=== PATIENT | male | born 1935 | race Caucasian/White ===

== ENCOUNTER → 2019-09-30 05:55 | Outpatient (CLI) | payer MEDICARE, SELFPAY ==
--- NOTE | 2019-09-30 12:25 | STRESSREP ---
Stress Test Report Pharmacologic myocardial perfusion stress test. 84-year-old man for preoperative evaluation. Stress protocol: Resting EKG demonstrates normal sinus rhythm with a rate of 81 bpm normal intervals are noted resting blood pressures 158/84 mmHg. 0.4 mg of regadenoson was infused per usual protocol followed by intravenous saline flush injection. Continuous EKG monitoring was performed. The maximum heart rate attained was 104 bpm which was 77% of maximum predicted heart rate the maximum workload was 1 metabolic equivalent. At rest there were no ST or T wave changes noted suggest abnormal flow reserve at peak infusion nonspecific ST-T wave changes were noted would not suggest abnormal flow reserve. Myocardial perfusion protocol. 11.0 mCi of technetium 99m sestamibi was injected at rest. 0.4 mg of regadenoson was infused per usual protocol peak infusion 33.0 mCi of technetium 99m sestamibi was injected stress images were obtained stress and rest images were reconstructed in comparing the short axis vertical and horizontal long axis. Gated images also obtained Perfusion SPECT analysis: Review of the stress images demonstrated normal uptake of tracer noted in all areas of myocardium the resting images similar demonstrate normal uptake of tracer noted in all areas of the myocardium. No reversibility is noted suggest ischemia no previous infarct is noted. Gated SPECT analysis: The gated ejection fraction is noted to be 56%. Conclusion: Normal pharmacologic myocardial perfusion stress test. Preserved ejection fraction.
== END ==
PROVIDERS: PCP Preventive Medicine Occupational Medicine; Referring Provider Preventive Medicine Occupational Medicine; Visit Provider Preventive Medicine Occupational Medicine
DX: Z01.818 Encounter for other preprocedural examination (principal); R07.89 Other chest pain
CPT/HCPCS: 78452; 93017; A9500; A4216; J2785

== ENCOUNTER 2019-10-10 16:15 | Inpatient (IN) | payer MEDICARE, SELFPAY ==
[2019-10-10 16:45] VITALS: BP 150/74; PULSE 88; RESP 16; TEMP 37.4; O2SAT 97; BMI 32.8
[2019-10-10] MEDS: Docusate Sodium 100 MG Capsule PO (17:52)
--- NOTE | 2019-10-10 18:23 | HP.PCM_ITS ---
Problem List (1) Debility Status: Acute (2) Lumbar spinal stenosis Status: Chronic (3) Weakness of both legs Status: Chronic (4) Fecal impaction of colon Status: Chronic (5) Hyperlipidemia Status: Chronic (6) Prostate cancer Status: Chronic (7) Osteoarthritis Status: Chronic (8) Hearing loss Status: Chronic (9) Hypertension Status: Chronic History of Present Illness Date of Admission: 10/10/19 Chief Complaint: Here for rehabilitation, strengthening, prior to discharge home with . The patient is a 84 year old Male with below past medical history with followin09/30/2019 Pharmacologic stress test normal. 10/05/2019 Dr. Jimenez performed hemilaminectomy L2, Laminectomy L3, Laminectomy L4-5, Fusion L3-5. Sequential compression devices for DVT prophylaxis. IV antibiotics while drains in place. Lumbar brace. 10/10/2019 Admit to TCU with debility, here for rehabilitation, strengthening, prior to discharge home with . Past Medical History Past Medical History (Chronic Problems): Chronic Problems Lumbar spinal stenosis (Chronic) Weakness of both legs (Chronic) Fecal impaction of colon (Chronic) Hyperlipidemia (Chronic) Prostate cancer (Chronic) Osteoarthritis (Chronic) Hearing loss (Chronic) Hypertension (Chronic) Home Medications: Ambulatory Orders Medication Instructions Recorded Docusate Sodium [Colace] 100 mg PO BID 10/10/19 Oxycodone HCl/Acetaminophen 1 tab PO Q6H PRN PRN 10/10/19 [Percocet 5/325] Tamsulosin HCl [Flomax] 0.4 mg PO DAILY 10/10/19 traMADol [Ultram (G)] 50 mg PO Q6H PRN PRN 10/10/19 Surgical History: herniorrhaphy, - - Brachytherapy, Bilateral carpal tunnel release, Left lower extremity coumpound fracture, right middle finger amputation, right ulnar nerve decompression. Psychiatric History: No pertinent psych hx Lives: Spouse/ Significant Other Smoking Status: Never smoker Tobacco Use: Non-smoker Alcohol: None Drugs: None - *Family History Paternal History Items: Hypertension Maternal History Items: Cancer - Leukemia. Review of Systems Constitutional: Denies: Chills, Fever, Weight Change HEENT: Denies: Head Aches, Sinus Congestion, Sinus Drainage Cardiovascular: Denies: Chest Pain, Palpitations Respiratory: Denies: Cough, Shortness of breath at rest, Sputum production Gastrointestinal: Denies: Abdominal Pain, Nausea, Vomiting Genitourinary: Denies: Dysuria Musculoskeletal: Denies: Joint Pain, Joint Tenderness Skin: Denies: Rash, Wounds Neurological: Denies: Numbness, Tingling, Focal weakness Psychiatric: Denies: Anxiety, Depression, Homicidal Ideations, Suicidal Ideations Hematologic/ Lymphatic: Denies: Easy Bruising, Easy Bleeding VTE Information - Inpt Only VTE Present on Admission: No VTE Mechan Device Prophylaxis: Knee High GOLDEN Hose VTE Pharm Prophylaxis ordered?: Yes Patient Problems: Active and Suspected Problems Debility (Acute) - Physical Exam Vitals/I&O's: Vital Signs Temp Pulse Resp BP Pulse Ox 99.3 F H 88 16 150/74 H 97 10/10/19 16:45 10/10/19 16:45 10/10/19 16:45 10/10/19 16:45 10/10/19 16:45 Oxygen Delivery Method Room Air Weight: 97.749 kg Body Mass Index (BMI) 32.8 General: Alert, Oriented x3, Cooperative HEENT: Atraumatic, PERRLA, EOMI, Normocephalic Neck: Supple, No JVD, Negative Carotid Bruits Lungs: Clear to auscultation, Normal air movement Cardiovascular: Regular rate, No murmurs Abdomen: Bowel Sounds Present, Soft, Non Tender Extremities: No edema, Capillary Refill Less than 3 Seconds Skin: No rashes, No breakdown Musculoskeletal: No Tenderness to Palpation of Joints or Extremities Neurological: Cranial nerves II-XII grossly intact Psych/Mental Status: Normal Affect, Appropriate Current Medications Acetaminophen (Tylenol) 1,000 mg PO Q6H PRN PRN PRN Reason: Pain 1-10 Bacitracin (Bacitracin Ointment) 1 applic TOPICAL BID [facility]; Protocol Docusate Sodium (Colace) 100 mg PO BID [facility] Last Admin: 10/10/19 17:52 Dose: 100 mg Documented by: Tamsulosin HCl (Flomax) 0.4 mg PO DAILY [facility] Tramadol HCl (Ultram) 50 mg PO Q6H PRN PRN PRN Reason: Pain 1-10 or Fever Tuberculin PPD (Tubersol, Aplisol, Ppd) 5 tu ID X1 ONE Stop: 10/11/19 10:01 Tuberculin PPD (Tubersol, Aplisol, Ppd) 5 tu ID X1 ONE Stop: 10/18/19 10:01 Assessment/Plan All Active Problems Debility (Acute) 84 year old male with below past medical history significant for lumbar spinal stenosis, underwent lumbar spine surgery 10/05/[address] Jimenez, admitted to TCU with debility, here for rehabilitation, strengthening, prior to discharge home with . * Debility - PT/OT. * Pain - Tylenol 1000MG Q6H PRN pain (1-3), Tramadol 50MG Q6H PRN pain (4-5), Oxycodone 2.5MG Q4H PRN pain (6-10). * Bowel - Miralax 17GM daily, Senna/colace 1 tablet BID, Dulcolax 10MG MN daily PRN, Magnesium Citrate 300ML PO x 1 bottle clean out. * Adult immunization - Administer Prevnar 13, Pneumovax 23, Fluzone as appropriate. * DVT prophylaxis - Lovenox 30MG SC daily. * Skin - Bacitracin ointment BID. * BPH - Tamsulosin 0.4MG daily. * Iron deficiency anemia - Ferrex 150MG daily. * Hypokalemia - KCL 40MEQ PO x 1 dose, then KCL 20MEQ daily, recheck BMP in 2 days.
[2019-10-10] MEDS: BACITRACIN 15 GM Tube 1 APPLIC TOPICAL (20:43)
[2019-10-11] MEDS: Acetaminophen 500 MG Tablet 1000 MG PO ×2 (00:59→10:49)
[2019-10-11 01:10] LABS: Probe Check PASS; Specimen Processing Control PASS
[2019-10-11 03:46] VITALS: BP 129/60; PULSE 83; RESP 16; TEMP 36.9; O2SAT 97
[2019-10-11 06:12] LABS: Absolute Lymphocyte Count 1.33 X10^3/uL (0.83-4.51); Absolute Neutrophil Count 6.8 X10^3/uL (2.0-7.7); Basophil# 0.05 X10^3/uL; Basophil% 0.5 % (0-1); Eosinophil# 0.11 X10^3/uL; Eosinophils% 1.2 % (0-5); Hematocrit 26.4 % (40-54); Hemoglobin 8.4 g/dL (13.0-16.5); Lymphocyte # 1.33 X10^3/ul (4.0); Lymphocyte % 14.5 % (19-41); Mean Corp Hgb Conc 31.8 g/dL (32-36); Mean Corpuscular Hgb 29.4 pg (27.0-32.0); Mean Corpuscular Volume 92.3 fL (80-94); Mean Platelet Vol. 9.3 fl (6.2-12.0); Monocyte# 0.85 X10^3/uL; Monocyte% 9.2 % (0-10); NRBC Flagged by Analyzer 0 % (0-5); Neutrophil # 6.82 X10^3/uL (2.7-7.7); Neutrophil % 74.2 % (47-70); Platelet Count 278 K/mm3 (150-450); RBC Distribution Width CV 12.7 % (11.6-14.6); RBC Distribution Width SD 42.4 fl (35.1-43.9); Red Blood Count 2.86 M/mm3 (4.6-6.2); White Blood Count 9.2 K/mm3 (4.4-11.0)
[2019-10-11] MEDS: Tamsulosin HCl 0.4 MG Capsule PO (06:21)
[2019-10-11 06:25] LABS: Anion Gap 7 (5-15); BUN 18 mg/dL (7-18); BUN/Creat Ratio 23.5 RATIO (10-20); Calcium,Total 8.2 mg/dL (8.5-10.1); Chloride 101 mmol/L (98-107); Creatinine, Serum 0.76 mg/dL (0.70-1.30); EST Glomerular Filtration Rate 103 mL/min (>60); Est Glom Filt Rate - Afr Amer 124 mL/min (>60); Estimated Creatinine Clearance 52.25 ml/min; Glucose 108 mg/dL (74-106); Potassium 3.2 mmol/L (3.5-5.1); Sodium Level 134 mmol/L (136-145)
[2019-10-11] MEDS: Senna/Docusate Sodium 1 Tablet PO ×2 (06:25→18:33)
[2019-10-11] MEDS: BACITRACIN 15 GM Tube 1 APPLIC TOPICAL ×2 (06:28→18:35)
[2019-10-11] MEDS: Magnesium Citrate 300 ML PO (09:22)
[2019-10-11] MEDS: Polyethylene Glycol 3350 17 GM PACKET PO (09:22)
[2019-10-11] MEDS: Tuberculin,Purif.prot.deriv. 50 TU/ML Vial 5 ML ID (10:50)
--- NOTE | 2019-10-11 11:19 | PHA.CONS_ITS ---
<Iesha Collins - Last Filed: 10/11/19 11:19> Progress Note - Pharmacy Subjective: TCU Admission Objective: Allergies No Known Allergies Allergy (Verified 10/10/19 18:29) Current Medications Generic Name Dose Route Start Last Admin Trade Name Freq PRN Reason Stop Dose Admin Acetaminophen 1,000 mg 10/11/19 08:04 10/11/19 10:49 Tylenol PO 1,000 mg Q6H PRN PRN Administration Pain Score 1-3/10 Bacitracin 1 applic 10/10/19 18:00 10/11/19 06:28 Bacitracin Ointment TOPICAL 1 applicatio BID [facility]ONOR Administration Protocol Bisacodyl 10 mg 10/10/19 18:34 Dulcolax RECTAL DAILY PRN Constipation Nutritional Formula (Lactose Free) 120 ml 10/11/19 06:00 10/11/19 06:22 Ensure Enlive PO 120 ml 4X/DAY LEONOR Administration Oxycodone HCl 2.5 mg 10/11/19 08:03 Oxyir PO Q4H PRN PRN Pain Score 6-10/10 Polyethylene Glycol 17 gm 10/11/19 06:00 10/11/19 09:22 Miralax PO 17 gm DAILY LEONOR Administration Polysaccharide Iron Complex 150 mg 10/12/19 08:00 Ferrex 150 PO DAILYCM [facility] Potassium Chloride 20 meq 10/12/19 08:00 K-Dur PO DAILYCM [facility] Senna/Docusate Sodium 1 tablet 10/11/19 06:00 10/11/19 06:25 Senokot-S, Mindy-Colace PO 1 tablet BID LEONOR Administration Tamsulosin HCl 0.4 mg 10/11/19 06:00 10/11/19 06:21 Flomax PO 0.4 mg DAILY [facility] Administration Tramadol HCl 50 mg 10/10/19 16:53 Ultram PO Q6H PRN PRN Pain Score 4-5/10 Tuberculin PPD 5 tu 10/18/19 10:00 Tubersol, Aplisol, Ppd ID 10/18/19 10:01 X1 ONE Problem List Debility (Acute) Lumbar spinal stenosis (Chronic) Weakness of both legs (Chronic) Fecal impaction of colon (Chronic) Hyperlipidemia (Chronic) Prostate cancer (Chronic) Osteoarthritis (Chronic) Hearing loss (Chronic) Hypertension (Chronic) Vital Signs Temp Pulse Resp BP Pulse Ox 98.5 F 83 16 129/60 H 97 10/11/19 03:46 10/11/19 03:46 10/11/19 03:46 10/11/19 03:46 10/11/19 03:46 Oxygen Delivery Method Room Air Weight: 97.749 kg Body Mass Index (BMI) 32.8 Sodium 134 mmol/L (136-145) L 10/11/19 05:51 Potassium 3.2 mmol/L (3.5-5.1) L 10/11/19 05:51 Chloride 101 mmol/L (98-107) 10/11/19 05:51 Carbon Dioxide 26.0 mmol/L (21.0-32.0) 10/11/19 05:51 Anion Gap 7 (5-15) 10/11/19 05:51 BUN 18 mg/dL (7-18) 10/11/19 05:51 Creatinine 0.76 mg/dL (0.70-1.30) 10/11/19 05:51 Est GFR (MDRD) Af Amer 124 mL/min (>60) 10/11/19 05:51 Est GFR (MDRD) Non-Af 103 mL/min (>60) 10/11/19 05:51 BUN/Creatinine Ratio 23.5 RATIO (10-20) H 10/11/19 05:51 Glucose 108 mg/dL (74-106) H 10/11/19 05:51 Assessment/Plan: 1. Pain: acetaminophen 1000mg PO Q6H PRN pain 1-3/10, tramadol 50mg PO Q6H PRN pain 4-5/10, and oxycodone 2.5mg PO Q4H PRN pain 6-10/10. Please continue to monitor for increased pain, renal function, and PRN usage. 2. BPH: tamsulosin 0.4mg PO daily. Please continue to monitor urine flow and hypotension. 3. Iron deficiency anemia: Ferrex 150mg PO DAILYCM. Please continue to monitor hemoglobin (last 8.4 g/dL) and for dark stools. 4. Hypokalemia: potassium chloride 20mEq PO DAILYCM. Please continue to monitor potassium levels (last 3.2 mmol/L). Psychotropic Medications: None Unnecessary Medications: None Bowel Regimen: Miralax 17gm PO daily, senna/docusate 1T PO BID, and bisacodyl 10mg ID daily PRN constipation. Please continue to monitor for constipation and PRN usage. Date of Note:: 10/11/19 - Provider Comments Provider responsibility: Provider responsible to enter orders to implement recommendations <Diaz Hawthorne Chi - Last Filed: 10/11/19 11:31> Progress Note - Pharmacy Subjective: [] Objective: Allergies No Known Allergies Allergy (Verified 10/10/19 18:29) Current Medications Generic Name Dose Route Start Last Admin Trade Name Freq PRN Reason Stop Dose Admin Acetaminophen 1,000 mg 10/11/19 08:04 10/11/19 10:49 Tylenol PO 1,000 mg Q6H PRN PRN Administration Pain Score 1-3/10 Bacitracin 1 applic 10/10/19 18:00 10/11/19 06:28 Bacitracin Ointment TOPICAL 1 applicatio BID [facility] Administration Protocol Bisacodyl 10 mg 10/10/19 18:34 Dulcolax RECTAL DAILY PRN Constipation Nutritional Formula (Lactose Free) 120 ml 10/11/19 06:00 10/11/19 06:22 Ensure Enlive PO 120 ml 4X/DAY [facility] Administration Oxycodone HCl 2.5 mg 10/11/19 08:03 Oxyir PO Q4H PRN PRN Pain Score 6-10/10 Polyethylene Glycol 17 gm 10/11/19 06:00 10/11/19 09:22 Miralax PO 17 gm DAILY [facility] Administration Polysaccharide Iron Complex 150 mg 10/12/19 08:00 Ferrex 150 PO DAILYCM [facility] Potassium Chloride 20 meq 10/12/19 08:00 K-Dur PO DAILYCM [facility] Senna/Docusate Sodium 1 tablet 10/11/19 06:00 10/11/19 06:25 Senokot-S, Mindy-Colace PO 1 tablet BID [facility] Administration Tamsulosin HCl 0.4 mg 10/11/19 06:00 10/11/19 06:21 Flomax PO 0.4 mg DAILY [facility] Administration Tramadol HCl 50 mg 10/10/19 16:53 Ultram PO Q6H PRN PRN Pain Score 4-5/10 Tuberculin PPD 5 tu 10/18/19 10:00 Tubersol, Aplisol, Ppd ID 10/18/19 10:01 X1 ONE Problem List Debility (Acute) Lumbar spinal stenosis (Chronic) Weakness of both legs (Chronic) Fecal impaction of colon (Chronic) Hyperlipidemia (Chronic) Prostate cancer (Chronic) Osteoarthritis (Chronic) Hearing loss (Chronic) Hypertension (Chronic) Vital Signs Temp Pulse Resp BP Pulse Ox 98.5 F 83 16 129/60 H 97 10/11/19 03:46 10/11/19 03:46 10/11/19 03:46 10/11/19 03:46 10/11/19 03:46 Oxygen Delivery Method Room Air Weight: 97.749 kg Body Mass Index (BMI) 32.8 Sodium 134 mmol/L (136-145) L 10/11/19 05:51 Potassium 3.2 mmol/L (3.5-5.1) L 10/11/19 05:51 Chloride 101 mmol/L (98-107) 10/11/19 05:51 Carbon Dioxide 26.0 mmol/L (21.0-32.0) 10/11/19 05:51 Anion Gap 7 (5-15) 10/11/19 05:51 BUN 18 mg/dL (7-18) 10/11/19 05:51 Creatinine 0.76 mg/dL (0.70-1.30) 10/11/19 05:51 Est GFR (MDRD) Af Amer 124 mL/min (>60) 10/11/19 05:51 Est GFR (MDRD) Non-Af 103 mL/min (>60) 10/11/19 05:51 BUN/Creatinine Ratio 23.5 RATIO (10-20) H 10/11/19 05:51 Glucose 108 mg/dL (74-106) H 10/11/19 05:51 Assessment/Plan: Psychotropic Medications: Unnecessary Medications: Bowel Regimen: - Provider Comments Provider responsibility: Provider responsible to enter orders to implement recommendations Provider Comments to Recommendations by Pharmacy: Agree
[2019-10-11] MEDS: traMADol 50 MG Tablet PO ×2 (12:06→21:06)
--- NOTE | 2019-10-11 13:06 | NURSING ---
mag citrate, given and was positive.
[2019-10-11 14:17] VITALS: BP 148/82; PULSE 109; RESP 20; TEMP 37.4; O2SAT 99
[2019-10-11 15:19] VITALS: O2SAT 99
--- NOTE | 2019-10-11 16:29 | CASEMGMT ---
Social Work Discussed code status. Pt confirmed full code. MOLST form completed and placed in chart. Kim Wasserman, GEOSPATIAL SPECIALIST NUCLEAR MEDICINE PET CT TECHNOLOGIST
[2019-10-11 20:45] VITALS: PULSE 86; RESP 18
[2019-10-12 05:15] VITALS: BP 128/63; PULSE 89; RESP 17; TEMP 37.1; O2SAT 96
[2019-10-12] MEDS: BACITRACIN 15 GM Tube 1 APPLIC TOPICAL ×2 (05:17→16:18)
[2019-10-12] MEDS: Polyethylene Glycol 3350 17 GM PACKET PO (05:18)
[2019-10-12] MEDS: Senna/Docusate Sodium 1 Tablet PO ×2 (05:20→16:17)
[2019-10-12] MEDS: Tamsulosin HCl 0.4 MG Capsule PO (05:20)
[2019-10-12] MEDS: Iron Polysaccharide Complex 150 MG CAPSULE PO (08:18)
[2019-10-12] MEDS: Acetaminophen 500 MG Tablet 1000 MG PO ×3 (09:45→21:10)
[2019-10-12 10:00] VITALS: PULSE 93; RESP 16; O2SAT 99
[2019-10-12 14:32] VITALS: BP 138/88; PULSE 87; RESP 18; TEMP 37.2; O2SAT 98
--- NOTE | 2019-10-12 14:47 | NURSING ---
Provided update to patient's spouse.
[2019-10-12] MEDS: Acyclovir 5% Tube 1 APPLIC TOPICAL (21:10)
[2019-10-13] MEDS: Bisacodyl 10 MG Suppository RECTAL (01:41)
[2019-10-13] MEDS: BACITRACIN 15 GM Tube 1 APPLIC TOPICAL ×2 (03:28→17:17)
[2019-10-13] MEDS: Polyethylene Glycol 3350 17 GM PACKET PO (05:12)
[2019-10-13] MEDS: Acyclovir 5% Tube 1 APPLIC TOPICAL ×5 (05:12→21:49)
[2019-10-13] MEDS: Tamsulosin HCl 0.4 MG Capsule PO (05:12)
[2019-10-13] MEDS: Senna/Docusate Sodium 1 Tablet PO ×2 (05:13→17:15)
[2019-10-13] MEDS: Acetaminophen 500 MG Tablet 1000 MG PO ×3 (05:13→21:48)
[2019-10-13 05:14] VITALS: BP 154/60; PULSE 93; RESP 20; TEMP 37.9; O2SAT 96
[2019-10-13 06:23] LABS: Anion Gap 8 (5-15); BUN 15 mg/dL (7-18); BUN/Creat Ratio 20.6 RATIO (10-20); Calcium,Total 8.2 mg/dL (8.5-10.1); Chloride 95 mmol/L (98-107); Creatinine, Serum 0.73 mg/dL (0.70-1.30); EST Glomerular Filtration Rate 109 mL/min (>60); Est Glom Filt Rate - Afr Amer 132 mL/min (>60); Estimated Creatinine Clearance 52.25 ml/min; Glucose 126 mg/dL (74-106); Potassium 4.1 mmol/L (3.5-5.1); Sodium Level 129 mmol/L (136-145)
--- NOTE | 2019-10-13 06:23 | NURSING ---
9130- Pt states I put my light on 6 or 7 times in an hour and they just let me poop and sit in it. This RN explained to the patient staff has been in multiple times this shift and provided incontinence care each time the patient was soiled. Patient's call light was answered by multiple staff members each time it rang. Pt confused to time throughout the night. stating he had to get up for work. When reoriented to time pt states why is it moving so slow?. Pt reoriented and call light within reach. Checked for incontinence and small loose BM cleansed at this time. Pt had a dulcolax suppository overnight.
[2019-10-13 07:00] VITALS: TEMP 37.7
[2019-10-13] MEDS: Iron Polysaccharide Complex 150 MG CAPSULE PO (08:18)
[2019-10-13 09:13] LABS: Urine Sodium 42 mmol/L (Not Establ.)
[2019-10-13 09:27] LABS: Osmolality, Serum 266 mOsm/KG (280-301)
[2019-10-13 09:27] LABS: Osmolality, Urine 267 mOsm/KG
--- NOTE | 2019-10-13 13:00 | CASEMGMT ---
Social Work IDT met with patient and via conference call for care plan meeting. Discussed patient's progress in therapy. Pt is mod x2 for sitting to standing, knees buckle and pt gets very painful. Pt is better with stand pivot transfers. He is walking 10 ft with FWW at mod x and w/c follow SBAx1, min assist for bed mobility. Pt is min x2 or mod x1 for modified toilet transfer, max assist for LE ADLs and toileting, min assist for UE ADLs, max assist for back brace, seated set up level for grooming. Pt is on a regular diet, good intake, receiving Ensure, and weight stable. Pt is out of room isolation 10/23, incontinent at times and wood can be removed 10/14. Explained Medicare benefits. The goal is for pt to return home with at [facility], and has two steps to enter. Will continue to follow. RAQUEL AvelarW
[2019-10-13] MEDS: oxyCODONE 5 MG Tablet 2.5 MG PO (13:54)
--- NOTE | 2019-10-13 14:01 | NURSING ---
Pt reporting he is having pain, therapy in room working with pt. Pt has not expressed any pain when staff including this keno writer/runner transferred pt from chair to bed. Overheard pt telling therapist that he is gonna have to call the doctor since no one is giving him pain meds. This keno writer/runner expressed to pt that he has scheduled tylenol and he does have PRN narcotics if needed but that narcotics are not scheduled & if he is having pain that he needs to ask or when staff offers to let us know he needs strong pain med. Noted that pt with odd tongue movements, he rolls tongue then bites it between teeth and repeats. No psych meds ordered. Will update dr manzanares.
[2019-10-13 16:00] VITALS: BP 142/56; PULSE 95; RESP 18; TEMP 37.2; O2SAT 98
--- NOTE | 2019-10-13 18:17 | NURSING ---
pt calls out frequently, if staff asks him if he needs anything else, pt states no. Just moved pt up in bed x2 assist, offered assistance with anything else and pt stated NO, then in less than 3 minutes, pt residential solar sales consultant light again.
[2019-10-13 23:54] VITALS: TEMP 36.8
--- NOTE | 2019-10-13 23:54 | NURSING ---
2348 Spoke to patient's . She called the unit. She said her called her and woke her up from a sound sleep. She was worried that something was wrong with him. This RN assured her that the patient is fine, just a little confused. was relieved that everything was ok. [id number] Let patient know that his just called and was worried. The patient explained that he called his to let her know he needed a wheelchair. This RN assured the patient that we have wheelchairs here at the hospital if he needs one and right now it was time to go to sleep. Patient agreed and said, If you need me, come and get me. Bed alarm is on.
[2019-10-14 01:50] VITALS: BP 135/69; PULSE 84; RESP 18; TEMP 37.1; O2SAT 97
[2019-10-14] MEDS: BACITRACIN 15 GM Tube 1 APPLIC TOPICAL ×2 (06:14→16:29)
[2019-10-14] MEDS: Polyethylene Glycol 3350 17 GM PACKET PO (06:16)
[2019-10-14] MEDS: Tamsulosin HCl 0.4 MG Capsule PO (06:16)
[2019-10-14] MEDS: Senna/Docusate Sodium 1 Tablet PO ×2 (06:16→16:29)
[2019-10-14] MEDS: Acetaminophen 500 MG Tablet 1000 MG PO ×3 (06:16→21:14)
[2019-10-14] MEDS: Acyclovir 5% Tube 1 APPLIC TOPICAL ×5 (06:17→21:15)
[2019-10-14] MEDS: Iron Polysaccharide Complex 150 MG CAPSULE PO (07:56)
[2019-10-14] MEDS: traMADol 50 MG Tablet PO (08:58)
[2019-10-14 09:02] VITALS: PULSE 94; O2SAT 97
--- NOTE | 2019-10-14 09:08 | NURSING ---
Pt assisted from bed x2 assist to recliner chair with use of walker. did much better today with transfer than yesterday. Pt c/o pain in back/buttock, ultram given. legs elevated. back brace in place. incision YEIMI. Took much assistance to get pt comfortable in chair with couple of pillows. call light in pt hand. Lee cath patent and drng clear straw color urine.
[2019-10-14] MEDS: oxyCODONE 5 MG Tablet 2.5 MG PO (13:42)
[2019-10-14 14:20] VITALS: BP 141/70; PULSE 91; RESP 17; TEMP 37.4; O2SAT 98
--- NOTE | 2019-10-14 18:11 | RAD_ITS ---
STUDY: X-RAY CHEST REASON FOR EXAM: Male, 84 years old. COUGH, HEMILAMINECTOMY TECHNIQUE: PA and lateral views of the chest. COMPARISON: None. FINDINGS: The lungs are clear and expanded. There is no demonstrated pleural abnormality. Normal size heart. Normal mediastinum and raul. Normal visualized pulmonary arteries. There is atherosclerotic calcification of the aortic arch. Normal visualized thoracic spine. Normal visualized ribs, clavicles, and shoulders. There is no demonstrated abnormality of the visualized soft tissue structures of the upper abdomen. RAD/Chest PA and Lateral IMPRESSION: Normal x-ray examination of the chest. Electronically Signed: Veronica Back MD at 21:28 EDT Tel , Service support ,
[2019-10-14 18:43] LABS: Absolute Lymphocyte Count 1.37 X10^3/uL (0.83-4.51); Absolute Neutrophil Count 7.1 X10^3/uL (2.0-7.7); Basophil# 0.04 X10^3/uL; Basophil% 0.4 % (0-1); Eosinophils% 2.1 % (0-5); Hematocrit 27.2 % (40-54); Hemoglobin 8.9 g/dL (13.0-16.5); Lymphocyte # 1.37 X10^3/ul (4.0); Lymphocyte % 14.5 % (19-41); Mean Corp Hgb Conc 32.7 g/dL (32-36); Mean Corpuscular Hgb 29.1 pg (27.0-32.0); Mean Corpuscular Volume 88.9 fL (80-94); Monocyte% 7.4 % (0-10); NRBC Flagged by Analyzer 0 % (0-5); Neutrophil # 7.06 X10^3/uL (2.7-7.7); Neutrophil % 74.6 % (47-70); Platelet Count 464 K/mm3 (150-450); RBC Distribution Width CV 12.5 % (11.6-14.6); RBC Distribution Width SD 40.5 fl (35.1-43.9); Red Blood Count 3.06 M/mm3 (4.6-6.2); White Blood Count 9.5 K/mm3 (4.4-11.0)
--- NOTE | 2019-10-14 18:53 | NURSING ---
DR MARTINI UPDATED ON TIMES OF CONFUSION, NEW ORDER FOR UA, KUB, CXR & LABS.
[2019-10-14 18:56] LABS: Anion Gap 6 (5-15); BUN 19 mg/dL (7-18); BUN/Creat Ratio 23.7 RATIO (10-20); Calcium,Total 8.4 mg/dL (8.5-10.1); Chloride 97 mmol/L (98-107); EST Glomerular Filtration Rate 97 mL/min (>60); Est Glom Filt Rate - Afr Amer 118 mL/min (>60); Estimated Creatinine Clearance 65.31 ml/min; Glucose 162 mg/dL (74-106); Potassium 4.1 mmol/L (3.5-5.1); Sodium Level 129 mmol/L (136-145)
--- NOTE | 2019-10-14 20:20 | RAD_ITS ---
STUDY: X-RAY - ABDOMEN/PELVIS REASON FOR EXAM: Male, 84 years old. CONSTIPATION, HEMILAMINECTOMY TECHNIQUE: KUB. COMPARISON: None. FINDINGS: Normal visualized lung bases. Nonobstructive bowel gas pattern. Multiple gas-filled loops of small bowel. Laminectomy changes L4-S1. Midline surgical shyam. Brachytherapy seeds in the prostate. Soft tissues and bony structures are otherwise unremarkable. RAD/Abdomen Single View IMPRESSION: 1. Postsurgical changes. Nonobstructive abdomen. Electronically Signed: Veronica Back MD at 21:30 EDT Tel , Service support ,
[2019-10-14 22:55] LABS: Bacteria 0 SEEN /hpf (None Seen); Mucous, Urine 0 SEEN /hpf (<or=2+); Red Blood Cells-Urine 0 SEEN /hpf (0-5); Squamous Epithelial Cells - UA 0 SEEN /hpf (0-5); White Blood Cells 0 SEEN /hpf (0-5)
[2019-10-14 22:58] LABS: Color, Urine Straw (Yellow); Glucose, Dipstick Normal (Normal); Ketone-Dipstick Negative (Negative); Leukocyte Esterase-Dipstick 25 /ul (Negative); Nitrite-Dipstick Negative (Negative); Occult Blood-Urine 25 /ul (Negative); Protein-Dipstick 15 mg/dl (Negative); Urine Bilirubin Dipstick Negative (Negative); Urine Clarity Sl. Cloudy (Clear); Urine Urobilinogen Normal (Normal)
[2019-10-15 06:26] LABS: Anion Gap 7 (5-15); BUN 18 mg/dL (7-18); Calcium,Total 8.5 mg/dL (8.5-10.1); Chloride 97 mmol/L (98-107); Creatinine, Serum 0.78 mg/dL (0.70-1.30); EST Glomerular Filtration Rate 100 mL/min (>60); Est Glom Filt Rate - Afr Amer 121 mL/min (>60); Estimated Creatinine Clearance 52.25 ml/min; Glucose 104 mg/dL (74-106); Potassium 4.1 mmol/L (3.5-5.1); Sodium Level 131 mmol/L (136-145)
[2019-10-15] MEDS: Acyclovir 5% Tube 1 APPLIC TOPICAL ×5 (07:03→22:06)
[2019-10-15] MEDS: BACITRACIN 15 GM Tube 1 APPLIC TOPICAL ×2 (07:04→18:18)
[2019-10-15] MEDS: Acetaminophen 500 MG Tablet 1000 MG PO ×3 (07:04→22:05)
[2019-10-15] MEDS: Senna/Docusate Sodium 1 Tablet PO ×3 (07:04→18:18)
[2019-10-15] MEDS: Tamsulosin HCl 0.4 MG Capsule PO (07:04)
[2019-10-15] MEDS: Polyethylene Glycol 3350 17 GM PACKET PO (07:07)
[2019-10-15 07:10] VITALS: BP 141/73; PULSE 102; RESP 18; TEMP 37; O2SAT 98
[2019-10-15] MEDS: Iron Polysaccharide Complex 150 MG CAPSULE PO (08:34)
[2019-10-15] MEDS: traMADol 50 MG Tablet PO (11:04)
--- NOTE | 2019-10-15 11:41 | CASEMGMT ---
Social Work BIMS and PHQ-9 completed for MDS assessment. Kim Wasserman, CERTIFIED MEDICAL TRANSCRIPTIONIST BUSINESS TRANSFORMATION ANALYST
--- NOTE | 2019-10-15 11:49 | MDS.RN ---
Pain interview for THAIS 10/17/19 completed.
--- NOTE | 2019-10-15 12:13 | NURSING ---
late entry - 1145 - wood catheter DC'd
[2019-10-15 14:46] VITALS: BP 149/71; PULSE 90; RESP 18; TEMP 37.2; O2SAT 98
[2019-10-15] MEDS: BENZOCAINE/MENTHOL 1 LOZENGE MUCOUS MEM (22:04)
[2019-10-16 04:00] VITALS: BP 149/83; PULSE 88; RESP 16; TEMP 37.2; O2SAT 92
[2019-10-16] MEDS: Polyethylene Glycol 3350 17 GM PACKET PO (05:19)
[2019-10-16] MEDS: Acetaminophen 500 MG Tablet 1000 MG PO ×3 (05:20→20:43)
[2019-10-16] MEDS: guaiFENesin 600 MG Tablet PO ×2 (05:20→16:51)
[2019-10-16] MEDS: BACITRACIN 15 GM Tube 1 APPLIC TOPICAL ×2 (05:20→16:52)
[2019-10-16] MEDS: Acyclovir 5% Tube 1 APPLIC TOPICAL ×5 (05:21→20:45)
[2019-10-16] MEDS: Tamsulosin HCl 0.4 MG Capsule PO (05:24)
[2019-10-16] MEDS: Iron Polysaccharide Complex 150 MG CAPSULE PO (08:55)
[2019-10-16 10:00] VITALS: PULSE 97; RESP 16; O2SAT 98
[2019-10-16] MEDS: traMADol 50 MG Tablet PO (11:38)
[2019-10-16 15:10] VITALS: BP 146/80; PULSE 54; RESP 16; TEMP 36.8; O2SAT 91
--- NOTE | 2019-10-16 15:39 | NURSING ---
patient has been anxious today and using the call light excessively. When staff respond pt is frequently agitated and complaining about multiple things. This nurse has attempted to assist pt with needs and make him as comfortable as possible.
[2019-10-16] MEDS: Senna/Docusate Sodium 1 Tablet PO (16:51)
[2019-10-17] MEDS: traMADol 50 MG Tablet PO ×4 (00:23→23:49)
[2019-10-17] MEDS: Polyethylene Glycol 3350 17 GM PACKET PO (04:32)
[2019-10-17] MEDS: Acetaminophen 500 MG Tablet 1000 MG PO ×3 (04:33→21:06)
[2019-10-17] MEDS: Senna/Docusate Sodium 1 Tablet PO ×2 (04:33→17:03)
[2019-10-17] MEDS: Tamsulosin HCl 0.4 MG Capsule PO (04:34)
[2019-10-17] MEDS: guaiFENesin 600 MG Tablet PO ×2 (04:35→17:03)
[2019-10-17] MEDS: Acyclovir 5% Tube 1 APPLIC TOPICAL ×5 (04:38→21:07)
[2019-10-17] MEDS: BACITRACIN 15 GM Tube 1 APPLIC TOPICAL ×2 (04:40→17:02)
[2019-10-17 04:45] VITALS: BP 157/74; PULSE 87; RESP 20; TEMP 37.2; O2SAT 96
[2019-10-17] MEDS: Iron Polysaccharide Complex 150 MG CAPSULE PO (07:51)
--- NOTE | 2019-10-17 13:31 | NURSING ---
Attempted to call family for update, received no answer at phone number contacted.
[2019-10-17 14:10] VITALS: BP 144/76; PULSE 96; RESP 16; TEMP 37.6; O2SAT 96
[2019-10-18 04:57] VITALS: BP 155/85; PULSE 85; RESP 18; TEMP 37.2; O2SAT 93
[2019-10-18] MEDS: Acyclovir 5% Tube 1 APPLIC TOPICAL ×5 (05:00→21:34)
[2019-10-18] MEDS: BACITRACIN 15 GM Tube 1 APPLIC TOPICAL ×2 (05:00→16:52)
[2019-10-18] MEDS: Polyethylene Glycol 3350 17 GM PACKET PO (05:01)
[2019-10-18] MEDS: guaiFENesin 600 MG Tablet PO ×2 (05:02→16:51)
[2019-10-18] MEDS: Acetaminophen 500 MG Tablet 1000 MG PO ×3 (05:02→21:34)
[2019-10-18] MEDS: Tamsulosin HCl 0.4 MG Capsule PO (05:02)
[2019-10-18] MEDS: Senna/Docusate Sodium 1 Tablet PO ×2 (05:02→16:51)
[2019-10-18 05:55] LABS: Absolute Lymphocyte Count 2.18 X10^3/uL (0.83-4.51); Absolute Neutrophil Count 7.7 X10^3/uL (2.0-7.7); Basophil# 0.05 X10^3/uL; Basophil% 0.5 % (0-1); Eosinophil# 0.23 X10^3/uL; Eosinophils% 2.1 % (0-5); Hematocrit 31.7 % (40-54); Hemoglobin 10.1 g/dL (13.0-16.5); Lymphocyte # 2.18 X10^3/ul (4.0); Lymphocyte % 19.8 % (19-41); Mean Corp Hgb Conc 31.9 g/dL (32-36); Mean Corpuscular Hgb 28.9 pg (27.0-32.0); Mean Corpuscular Volume 90.8 fL (80-94); Mean Platelet Vol. 8.8 fl (6.2-12.0); Monocyte% 6.4 % (0-10); NRBC Flagged by Analyzer 0 % (0-5); Neutrophil # 7.72 X10^3/uL (2.7-7.7); Neutrophil % 70.2 % (47-70); Platelet Count 667 K/mm3 (150-450); RBC Distribution Width CV 12.8 % (11.6-14.6); RBC Distribution Width SD 41.8 fl (35.1-43.9); Red Blood Count 3.49 M/mm3 (4.6-6.2)
[2019-10-18 06:22] LABS: Anion Gap 8 (5-15); BUN 16 mg/dL (7-18); BUN/Creat Ratio 20.9 RATIO (10-20); Chloride 92 mmol/L (98-107); Creatinine, Serum 0.76 mg/dL (0.70-1.30); EST Glomerular Filtration Rate 103 mL/min (>60); Est Glom Filt Rate - Afr Amer 124 mL/min (>60); Estimated Creatinine Clearance 52.25 ml/min; Glucose 121 mg/dL (74-106); Potassium 4.3 mmol/L (3.5-5.1); Sodium Level 128 mmol/L (136-145)
[2019-10-18] MEDS: Tuberculin,Purif.prot.deriv. 50 TU/ML Vial 5 ML ID (10:21)
[2019-10-18] MEDS: Iron Polysaccharide Complex 150 MG CAPSULE PO (10:21)
[2019-10-18 11:17] VITALS: PULSE 100; RESP 18; O2SAT 98
[2019-10-18] MEDS: traMADol 50 MG Tablet PO ×2 (13:32→21:33)
--- NOTE | 2019-10-18 14:11 | OT ---
Spoke with on phone this date. asking about patients level of care during PT/OT sessions. Reviewed transfers, ambulation, and toileting tasks. asking about pain and reviewed with her that patient has been reporting increasing burning sensation in B thighs with transfers/walking which she states was patients initial problem that led him to need surgical intervention. mentioning that she felt his confusion and anxiety was increasing. Asked if patient could be placed on any anxiety medications, reported such [place] [facility] [place]. also requesting a phone call s/p his appt on Friday for updates.
[2019-10-18 14:45] VITALS: BP 162/83; PULSE 105; RESP 18; TEMP 36.6; O2SAT 97
[2019-10-19] MEDS: Polyethylene Glycol 3350 17 GM PACKET PO (05:11)
[2019-10-19] MEDS: BACITRACIN 15 GM Tube 1 APPLIC TOPICAL ×2 (05:11→17:23)
[2019-10-19] MEDS: Tamsulosin HCl 0.4 MG Capsule PO (05:12)
[2019-10-19] MEDS: Senna/Docusate Sodium 1 Tablet PO ×2 (05:12→17:17)
[2019-10-19] MEDS: Acetaminophen 500 MG Tablet 1000 MG PO ×3 (05:12→21:40)
[2019-10-19] MEDS: guaiFENesin 600 MG Tablet PO ×2 (05:12→17:17)
[2019-10-19] MEDS: Acyclovir 5% Tube 1 APPLIC TOPICAL ×4 (05:14→17:24)
[2019-10-19 05:18] VITALS: BP 156/87; PULSE 104; RESP 18; TEMP 36.8; O2SAT 95
[2019-10-19] MEDS: Iron Polysaccharide Complex 150 MG CAPSULE PO (09:21)
[2019-10-19] MEDS: oxyCODONE 5 MG Tablet 2.5 MG PO (09:25)
[2019-10-19] MEDS: traMADol 50 MG Tablet PO ×2 (10:27→17:19)
[2019-10-19 14:47] VITALS: BP 136/75; PULSE 97; RESP 20; TEMP 37.3; O2SAT 95
--- NOTE | 2019-10-19 15:32 | CASEMGMT ---
Social Work Spoke with pt's about pt's current status and progress. Explained pt has ST cognitive impairment,very poor insight to deficits, inattention, canot focus, and very anxious. Pt physically requires assistance with ADLs min-min x1-2, gets very fatigued, but again feels like he can do more. Explained insurance NRD 10/18 and continued stay is not guaranteed. Discussed alternative options for DC as pt is unable to return home. At this time, IDT recommending SNF. Explained it would be private pay or Sw can assist with Medicaid, if eligible. stated she would like to see the outcome of the ortho app, and speak with the children. Offered continued assistance. Will continue to follow. Kim Wasserman MSW DIRECTOR OF SUSTAINABLE DESIGN
[2019-10-20] MEDS: oxyCODONE 5 MG Tablet 2.5 MG PO ×2 (01:30→10:41)
[2019-10-20 05:04] VITALS: BP 136/82; PULSE 96; RESP 18; TEMP 37; O2SAT 97
[2019-10-20] MEDS: Acetaminophen 500 MG Tablet 1000 MG PO ×3 (05:07→20:41)
[2019-10-20] MEDS: Senna/Docusate Sodium 1 Tablet PO ×2 (05:07→16:59)
[2019-10-20] MEDS: BACITRACIN 15 GM Tube 1 APPLIC TOPICAL ×2 (05:08→16:59)
[2019-10-20] MEDS: guaiFENesin 600 MG Tablet PO ×2 (05:08→16:59)
[2019-10-20] MEDS: Polyethylene Glycol 3350 17 GM PACKET PO (05:08)
[2019-10-20] MEDS: Tamsulosin HCl 0.4 MG Capsule PO (05:09)
[2019-10-20] MEDS: traMADol 50 MG Tablet PO (05:12)
[2019-10-20 06:36] LABS: Anion Gap 7 (5-15); BUN 21 mg/dL (7-18); BUN/Creat Ratio 24.7 RATIO (10-20); Calcium,Total 8.9 mg/dL (8.5-10.1); Chloride 96 mmol/L (98-107); Creatinine, Serum 0.85 mg/dL (0.70-1.30); EST Glomerular Filtration Rate 91 mL/min (>60); Est Glom Filt Rate - Afr Amer 110 mL/min (>60); Estimated Creatinine Clearance 61.47 ml/min; Glucose 106 mg/dL (74-106); Potassium 4.1 mmol/L (3.5-5.1); Sodium Level 130 mmol/L (136-145)
[2019-10-20] MEDS: Iron Polysaccharide Complex 150 MG CAPSULE PO (07:47)
[2019-10-20 10:00] VITALS: PULSE 73; RESP 16; O2SAT 96
--- NOTE | 2019-10-20 13:17 | NURSING ---
Patient updated on October 21 appointment and explained how he would be transferred for the appointment. pt agreeable to this.
[2019-10-20 14:14] VITALS: BP 136/76; PULSE 101; RESP 20; TEMP 37.1; O2SAT 99
--- NOTE | 2019-10-20 14:22 | MDS.RN ---
Information for the mds was obtained from review of the clinical record, interview of resident, staff, and direct observation of resident's care.
--- NOTE | 2019-10-20 15:59 | NURSING ---
pt reports speaking with his today and does not need staff to call for update.
[2019-10-20] MEDS: BENZOCAINE/MENTHOL 1 LOZENGE MUCOUS MEM (22:01)
[2019-10-21] MEDS: oxyCODONE 5 MG Tablet 2.5 MG PO ×2 (01:41→16:19)
[2019-10-21] MEDS: Polyethylene Glycol 3350 17 GM PACKET PO (05:03)
[2019-10-21] MEDS: Acetaminophen 500 MG Tablet 1000 MG PO ×3 (05:05→21:00)
[2019-10-21] MEDS: guaiFENesin 600 MG Tablet PO ×2 (05:06→16:16)
[2019-10-21] MEDS: Tamsulosin HCl 0.4 MG Capsule PO (05:06)
[2019-10-21] MEDS: Senna/Docusate Sodium 1 Tablet PO ×2 (05:07→16:16)
[2019-10-21] MEDS: BACITRACIN 15 GM Tube 1 APPLIC TOPICAL (05:07)
[2019-10-21 06:59] VITALS: BP 159/88; PULSE 99; RESP 18; TEMP 37.1
[2019-10-21] MEDS: Iron Polysaccharide Complex 150 MG CAPSULE PO (07:44)
[2019-10-21 14:50] VITALS: BP 122/63; PULSE 110; RESP 20; TEMP 36.9; O2SAT 97
--- NOTE | 2019-10-21 15:33 | NURSING ---
GI Kumar spoke with earlier today.
--- NOTE | 2019-10-21 16:11 | CASEMGMT ---
Social Work Spoke with to discuss SNF stay and financial liability. would like [facility], [facility] or [facility]. Referrals made. Kim Wasserman MSW COBOL APPLICATION DEVELOPER
[2019-10-21] MEDS: BENZOCAINE/MENTHOL 1 LOZENGE MUCOUS MEM (21:04)
[2019-10-22] MEDS: oxyCODONE 5 MG Tablet 2.5 MG PO ×2 (00:23→14:15)
[2019-10-22] MEDS: Tamsulosin HCl 0.4 MG Capsule PO (05:40)
[2019-10-22] MEDS: Acetaminophen 500 MG Tablet 1000 MG PO (05:40)
[2019-10-22] MEDS: Polyethylene Glycol 3350 17 GM PACKET PO (05:40)
[2019-10-22] MEDS: Senna/Docusate Sodium 1 Tablet PO (05:41)
[2019-10-22] MEDS: guaiFENesin 600 MG Tablet PO (05:41)
[2019-10-22 05:43] VITALS: BP 165/80; PULSE 95; RESP 20; O2SAT 96
[2019-10-22 06:49] VITALS: TEMP 36.9
[2019-10-22] MEDS: Iron Polysaccharide Complex 150 MG CAPSULE PO (08:01)
[2019-10-22 10:00] VITALS: PULSE 130; O2SAT 97
--- NOTE | 2019-10-22 12:21 | CASEMGMT ---
Social Work Spoke with to f/u on SNFs. requested SW speak to son, Erick and provided correct phone number. Spoke with Erick and explained pt's situation and recommendations for SNF. agreeable. Explained room and board would be private pay, and could submit to [facility] for Part B therapies or family can pay privately for therapies as well. Explained W will review clinicals closer to DC date, which has not been set yet, [facility] can accept and have not heard from [facility]. Son understands all information and 1st choice would be [facility]. Discussed Medicaid in depth of son as well. Son believes pt would qualify as all of the assets are in the 's name. Emailed application to son. Explained pt has ortho appt on this date and insurance NRD 10/24 and will most likely issue DC date. Son understood and will assist with DC process. Contacted [facility] and they confirmed they can accommodate pt private pay or [facility] pending, and with Part B therapies. Will continue to follow. RAQUEL AvelarW
--- NOTE | 2019-10-22 14:22 | RAD_ITS ---
STUDY: X-RAY CHEST REASON FOR EXAM: Male, 84 years old. Cough, best images possible at this time, patient combative TECHNIQUE: PA and 2 lateral views of the chest COMPARISON: 10/14/2019 FINDINGS: The lungs are clear and expanded. There is no demonstrated pleural abnormality. Normal size heart. Normal mediastinum and raul. Normal visualized pulmonary arteries. There is atherosclerotic calcification of the aortic arch with tortuosity. There are diffuse degenerative changes of the visualized thoracic spine. There is degenerative osteoarthritis of the bilateral shoulders. There is no demonstrated abnormality of the visualized soft tissue structures of the upper abdomen. RAD/Chest PA and Lateral IMPRESSION: No acute pulmonary process Electronically Signed: Ubaldo Nash MD at 15:16 EDT , Service support ,
[2019-10-22 14:26] LABS: Bedside Glucose 260 mg/dL (70-110)
--- NOTE | 2019-10-22 14:40 | RAD_ITS ---
STUDY: X-RAY - ABDOMEN/PELVIS REASON FOR EXAM: Male, 84 years old. Constipation, best images possible at this time, patient combative TECHNIQUE: AP supine and upright views of the abdomen and pelvis. COMPARISON: 10/14/2019 FINDINGS: Normal visualized lung bases. Borderline distended air-filled loops of small and large bowel in all 4 quadrants of the abdomen consistent with large and small bowel ileus. Patient is recently postop and this could be due to postoperative pain medication. There is no demonstrated free abdominal air. The visualized liver, spleen and kidneys are grossly normal in size and morphology. Normal soft tissue structures. Degenerative bony changes noted. Surgical hardware in the lower lumbar spine and free of complication. Brachytherapy beads noted in the prostate RAD/Abdomen Single View IMPRESSION: Small and large bowel ileus, this may be due to postoperative pain medication. The overall bowel gas pattern however has improved since the previous study of 10/14/2019 No demonstrated free air Degenerative and postoperative changes in the lumbar spine Electronically Signed: Ubaldo Nash MD at 15:15 EDT , Service support ,
[2019-10-22 14:49] LABS: Absolute Neutrophil Count 20.2 X10^3/uL (2.0-7.7); Basophil# 0.06 X10^3/uL; Basophil% 0.3 % (0-1); Hematocrit 37.3 % (40-54); Hemoglobin 11.9 g/dL (13.0-16.5); Lymphocyte % 4.5 % (19-41); Mean Corp Hgb Conc 31.9 g/dL (32-36); Mean Corpuscular Hgb 29.2 pg (27.0-32.0); Mean Corpuscular Volume 91.4 fL (80-94); Mean Platelet Vol. 8.4 fl (6.2-12.0); Monocyte# 0.86 X10^3/uL; Monocyte% 3.9 % (0-10); NRBC Flagged by Analyzer 0 % (0-5); Neutrophil # 20.19 X10^3/uL (2.7-7.7); Neutrophil % 90.3 % (47-70); POSITIVE COUNT YES; POSITIVE DIFFERENTIAL YES; RBC Distribution Width SD 42.9 fl (35.1-43.9); Red Blood Count 4.08 M/mm3 (4.6-6.2); White Blood Count 22.3 K/mm3 (4.4-11.0)
[2019-10-22 14:51] LABS: Differential Indicated SCAN CRITERIA MET; Platelet Count 762 K/mm3 (150-450)
[2019-10-22 15:03] LABS: Anion Gap 13 (5-15); BUN 28 mg/dL (7-18); BUN/Creat Ratio 23.7 RATIO (10-20); Calcium,Total 9.3 mg/dL (8.5-10.1); Chloride 95 mmol/L (98-107); Creatinine, Serum 1.18 mg/dL (0.70-1.30); EST Glomerular Filtration Rate 62 mL/min (>60); Est Glom Filt Rate - Afr Amer 75 mL/min (>60); Estimated Creatinine Clearance 44.28 ml/min; Glucose 261 mg/dL (74-106); Potassium 4.8 mmol/L (3.5-5.1); Sodium Level 128 mmol/L (136-145)
[2019-10-22 15:17] LABS: Platelet Estimate MKD INC (ADEQ); Red Cell Morphology NORM C+C NORMAL (NORM C&C)
--- NOTE | 2019-10-22 15:25 | DCINST_ITS ---
- Discharge Diagnoses Current Active Problems: Current Active and Chronic Problems Debility (Acute) Lumbar spinal stenosis (Chronic) Weakness of both legs (Chronic) Fecal impaction of colon (Chronic) Hyperlipidemia (Chronic) Prostate cancer (Chronic) Osteoarthritis (Chronic) Hearing loss (Chronic) Hypertension (Chronic) You will use the following diet at home:: No restrictions, Regular Your food should be the consistency of: Regular Your liquids should be the consistency of: Regular/Thin Discharge Activity: Return to Normal Activity, May Shower, Use Walker Weight Bearing Status: Weight bearing as tolerated Call your doctor if you observe: Fever of 101 or Higher, Inability to urinate, Inability to have a bowel movement, Shortness of breath, Chest pain, Uncontrolled pain Allergies/Adverse Reactions: Allergies No Known Allergies Allergy (Verified 10/10/19 18:29) Medications to take at Discharge Tamsulosin HCl [Flomax] 0.4 mg PO DAILY 10/10/19 traMADol [Ultram] 50 mg PO Q6H PRN PRN 10/10/19 Acetaminophen [Tylenol] 1,000 mg PO TID tablet 10/22/19 Bisacodyl [Dulcolax] 10 mg RECTAL DAILY PRN suppos. 10/22/19 Ensure Enlive 60 ml PO 4X/DAY liquid 10/22/19 Guaifenesin [Mucinex] 600 mg PO BID tablet 10/22/19 Iron Polysaccharide Complex [Ferrex 150] 150 mg PO DAILYCM capsule 10/22/19 Polyethylene Glycol 3350 [Miralax] 17 gm PO DAILY packet 10/22/19 Potassium Chloride [K-Dur] 20 meq PO DAILYCM tablet 10/22/19 Senna/Docusate Sodium [Senokot-S] 1 tablet PO BID tablet 10/22/19 Primary Care Physician: Claudio Garibay DO [Primary Care Provider] - Please follow up with your Primary Care Physician in: 1 week. Test Results: Test results from this visit will be discussed in further detail at your follow- up appointment, if applicable. Please Follow Up With: Adelfo Jimenez MD When: Friday Proposed Discharge Date: 10/22/19
--- NOTE | 2019-10-22 15:26 | PCM.DC.SUM ---
Discharge Date and Diagnosis - Problem List Patient Problems: Active and Suspected Problems Debility (Acute) Date of Admission: 10/10/19 Date of Discharge: 10/22/19 - Primary Discharge Diagnosis Acute Problems: Active Problems Debility (Acute) - Secondary Discharge Diagnosis Chronic Problems: Chronic Problems Lumbar spinal stenosis (Chronic) Weakness of both legs (Chronic) Fecal impaction of colon (Chronic) Hyperlipidemia (Chronic) Prostate cancer (Chronic) Osteoarthritis (Chronic) Hearing loss (Chronic) Hypertension (Chronic) Hospital Course and Treatment Imaging Results: 10/22/19 14:22 Xray Chest [Chest PA and Lateral] [RAD] Urgent 10/22/19 14:40 XRAY Abdomen [Abdomen Single View] [RAD] Urgent Operations: None Procedures: None Summary of Care Provided: The patient is a 84 year old Male with below past medical history significant for lumbar spinal stenosis, underwent lumbar spine surgery 10/05/[address] Jimenez, admitted to TCU with debility, here for rehabilitation, strengthening, prior to discharge home with . 10/22/2019 Resident returned from Orthopedic appointment, staple removal. He is confused, talking gibberish. Fever of 101.2, chronic hyponatremia, worsening thrombocytosis. He has pain with palpation of lumbar spine, and there appears to be fluid collection under incision. Stroke is consideration, but I think he has infection of lumbar spine, possible abscess. He does have indwelling Lee Catheter. Chest X-ray done, X-ray of abdomen done. Discharge to [facility] for evaluation, admission to Hospital. Patient Problems: Active and Suspected Problems Debility (Acute) - Physical Exam Vitals/I&O's: Vital Signs Temp Pulse Resp BP Pulse Ox 98.4 F 95 20 H 165/80 H 96 10/22/19 06:49 10/22/19 05:43 10/22/19 05:43 10/22/19 05:43 10/22/19 05:43 Oxygen Delivery Method Room Air Weight: 83.518 kg Body Mass Index (BMI) 32.8 Intake and Output for Last 24 Hours 10/20/19 10/21/19 10/22/19 23:59 23:59 23:59 Intake Total 830 / 830 1102 / 1102 460 / 460 Output Total 2225 / 2225 1450 / 1450 500 / 500 Balance -1395 / -1395 -348 / -348 -40 / -40 Laboratory Results 10/22/19 14:21: POC Glucose 260 H 10/22/19 14:42: WBC 22.3 H, RBC 4.08 L, Hgb 11.9 L, Hct 37.3 L, MCV 91.4, MCH 29.2, MCHC 31.9 L, RDW Std Deviation 42.9, RDW Coeff of [place] 13.0, Plt Count 762 H*, MPV 8.4, Immature Gran % (Auto) 1.000 H, Neut % (Auto) 90.3 H, Lymph % (Auto) 4.5 L, [place] % (Auto) 3.9, Eos % (Auto) 0.0, Baso % (Auto) 0.3, Absolute Neuts (auto) 20.2 H, Absolute Lymphs (auto) 1.00, Nucleated RBC % 0, Differential Comment COMMENT, Diff Path Review August foll, Platelet Estimate [employer], RBC Morphology NORM C+C 10/22/19 14:42: Sodium 128 L, Potassium 4.8, Chloride 95 L, Carbon Dioxide 20.0 L, Anion Gap 13, BUN 28 H, Creatinine 1.18, Estim Creat Clear Calc 44.28, Est GFR (MDRD) Af Amer 75, Est GFR (MDRD) Non-Af 62, BUN/Creatinine Ratio 23.7 H, Glucose 261 H, Calcium 9.3 Current Medications Acetaminophen (Tylenol) 1,000 mg PO TID [facility] Last Admin: 10/22/19 05:40 Dose: 1,000 mg Documented by: Bisacodyl (Dulcolax) 10 mg RECTAL DAILY PRN PRN Reason: Constipation Last Admin: 10/13/19 01:41 Dose: 10 mg Documented by: Guaifenesin (Mucinex) 600 mg PO BID [facility] Last Admin: 10/22/19 05:41 Dose: 600 mg Documented by: Sodium Chloride () 1,000 mls @ 75 mls/hr IV .[id number] [facility] Ceftriaxone Sodium 2 gm/ (Sodium Chloride) 50 mls @ 100 mls/hr IV X1 ONE Stop: 10/22/19 15:44 Ceftriaxone Sodium 2 gm/ (Sodium Chloride) 50 mls @ 100 mls/hr IV Q24 LEONOR Stop: 10/30/19 10:01 Nutritional Formula (Lactose Free) (Ensure Enlive) 60 ml PO 4X/DAY [facility] Last Admin: 10/22/19 14:23 Dose: 60 ml Documented by: Oxycodone HCl (Oxyir) 2.5 mg PO Q4H PRN PRN PRN Reason: Pain Score 6-10/10 Last Admin: 10/22/19 14:15 Dose: 2.5 mg Documented by: Polyethylene Glycol (Miralax) 17 gm PO DAILY [facility] Last Admin: 10/22/19 05:40 Dose: 17 gm Documented by: Polysaccharide Iron Complex (Ferrex 150) [facility] Admin: 10/22/19 08:01 Dose: 150 mg Documented by: Potassium Chloride (K-Dur) [facility]q [facility] Last Admin: 10/22/19 08:01 Dose: 20 meq Documented by: Senna/Docusate Sodium (Senokot-S, Mindy-Colace) 1 tablet PO BID [facility] Last Admin: 10/22/19 05:41 Dose: 1 tablet Documented by: Tamsulosin HCl (Flomax) 0.4 mg PO DAILY [facility] Last Admin: 10/22/19 05:40 Dose: 0.4 mg Documented by: Throat Lozenges (Cepacol Sore Throat Lozenge) 1 lozenge MUCOUS MEM Q2H PRN PRN PRN Reason: SORE THROAT Last Admin: 10/21/19 21:04 Dose: 1 lozenge Documented by: Tramadol HCl (Ultram) 50 mg PO Q6H PRN PRN PRN Reason: Pain Score 4-5/10 Last Admin: 10/20/19 05:12 Dose: 50 mg Documented by: Discharge Diet: No Restrictions Discharge Activity: Return to Normal Activity, May Shower, Use Walker Weight Bearing Status: Weight bearing as tolerated Call your doctor if you observe: Fever of 101 or Higher, Inability to urinate, Inability to have a bowel movement, Shortness of breath, Chest pain, Uncontrolled pain Home Medications: Medications to take at Discharge Tamsulosin HCl [Flomax] 0.4 mg PO DAILY 10/10/19 traMADol [Ultram] 50 mg PO Q6H PRN PRN 10/10/19 Acetaminophen [Tylenol] 1,000 mg PO TID tablet 10/22/19 Bisacodyl [Dulcolax] 10 mg RECTAL DAILY PRN suppos. 10/22/19 Ensure Enlive 60 ml PO 4X/DAY liquid 10/22/19 Guaifenesin [Mucinex] 600 mg PO BID tablet 10/22/19 Iron Polysaccharide Complex [Ferrex 150] 150 mg PO DAILYCM capsule 10/22/19 Polyethylene Glycol 3350 [Miralax] 17 gm PO DAILY packet 10/22/19 Potassium Chloride [K-Dur] 20 meq PO DAILYCM tablet 10/22/19 Senna/Docusate Sodium [Senokot-S] 1 tablet PO BID tablet 10/22/19 Primary Care Physician: Claudio Garibay DO [Primary Care Provider] - Please follow up with your Primary Care Physician in: 1 week. Please Follow Up With: Adelfo Jimenez MD When: Friday Disposition: Acute care Hospital Minutes spent on discharge:: 30 Patient Condition:: Guarded Medical Necessity - Tobacco Use Smoking Status: Never smoker Tobacco Use: Non-smoker Meaningful Use Info Meaningful Use Diagnoses (Choose all that apply): None applicable
--- NOTE | 2019-10-22 15:28 | NURSING ---
Report called to ED
--- NOTE | 2019-10-22 15:53 | NURSING ---
Attempted to contact family for an update on patients current status. No answer, vm left for them to return call.
[2019-10-22 16:00] VITALS: BP 169/103; PULSE 130; RESP 16; TEMP 38.4; O2SAT 97
--- NOTE | 2019-10-22 22:55 | NURSING ---
Per ER nurse pt was transported to [facility].
[2019-10-25 10:43] LABS: Pathologist Review Reviewed
== END 2019-10-22 22:56 | disposition short-term general hospital (02) | DRG 559 ==
PROVIDERS: Admitting Provider Family Medicine Geriatric Medicine; PCP Preventive Medicine Occupational Medicine; Visit Provider Family Medicine Geriatric Medicine
DX: Z47.89 Encounter for other orthopedic aftercare (principal); G04.91 Myelitis, unspecified; E87.1 Hypo-osmolality and hyponatremia; T81.40XA Infection following a procedure, unspecified, initial encounter; M48.061 Spinal stenosis, lumbar region without neurogenic claudication; E78.5 Hyperlipidemia, unspecified; I10 Essential (primary) hypertension; M19.90 Unspecified osteoarthritis, unspecified site; D50.9 Iron deficiency anemia, unspecified; N40.0 Benign prostatic hyperplasia without lower urinary tract symptoms; E87.6 Hypokalemia; Z85.46 Personal history of malignant neoplasm of prostate; Z98.1 Arthrodesis status; D69.6 Thrombocytopenia, unspecified
CPT/HCPCS: 36415; 71046; 74018; 80048; 81001; 82962; 83930; 83935; 84300; 85025; 87086; 87635; 92507; 92523; 97110; 97116; 97162; 97166; 97530; 97535; 97802; G2023; U0003

== ENCOUNTER 2019-10-22 15:33 | Emergency (ER) | payer MEDICARE, SELFPAY ==
[2019-10-10 16:45] VITALS: BMI 32.8
[2019-10-22] VITALS (11 sets, daily range): BP systolic 138–185; BP diastolic 81–99; PULSE 110–129; RESP 20–28; TEMP 36.7–39.4; O2SAT 94–98; BMI 27.1
--- NOTE | 2019-10-22 15:42 | NURSING ---
NO OLD EKGS
--- NOTE | 2019-10-22 15:46 | CT_ITS ---
We are attempting to reach an attending provider to discuss findings. An addendum with communication details will be sent when the communication is complete. STUDY: CT BRAIN WITHOUT CONTRAST REASON FOR EXAM: Male, 84 years old. CONFUSION RADIATION DOSAGE (If Supplied By Facility): CTDIvol = ( 44.99 ) mGy, DLP = ( 796.11 ) mGycm TECHNIQUE: Transaxial CT imaging of the brain was performed without administration of intravenous contrast material. Individualized dose optimization techniques were used for this CT. COMPARISON: No relevant priors. FINDINGS: Normal soft tissue structures. Normal calvarium. There is mild cerebral atrophy with widening of the extra-axial spaces and ventricular dilatation. Normal white matter tracts of the cerebral hemispheres. Normal basal ganglia and thalami. Normal brainstem. Normal cerebellum. There is no intracranial hemorrhage. There are no findings of an acute ischemic infarction. Normal visualized paranasal sinuses. CT/Brain/Head without Contrast IMPRESSION: Chronic involutional changes of the brain. Electronically Signed: Juno Villa MD at 16:02 EDT Tel , Service support ,
--- NOTE | 2019-10-22 15:46 | EKG12_ITS ---
Test Reason : ILLNESS Blood Pressure : / mmHG Vent. Rate : 121 BPM Atrial Rate : 121 BPM P-R Int : 138 ms QRS Dur : 076 ms QT Int : 342 ms P-R-T Axes : 059 -09 079 degrees QTc Int : 485 ms Sinus tachycardia Low voltage QRS (Limb Leads) Nonspecific ST and T wave abnormality Abnormal ECG Confirmed by ADARSH GARZA, DEVANG ([id number]), associate entertainment editor SUSANNE SAM ([id number]) on 10/26/2019 11:08:29 AM Referred By: [email or web address] Confirmed By:DEVANG ALTAMIRANO MD
--- NOTE | 2019-10-22 15:47 | CM.ED ---
SOCIAL WORK Responded to Stroke Alert. Per nursing, patient from TCU. No family present at this time. Patient being taken to CT. Will remain available for needs. Valerie Yee, RIVET FLUNKY, OFFLINE CUTTER
[2019-10-22] MEDS: 0.9% Normal Saline 1,000 ML 999 ML IV ×4 (15:59→21:01)
[2019-10-22] MEDS: Acetaminophen 500 MG Tablet 1000 MG PO (16:17)
[2019-10-22 16:18] LABS: Absolute Lymphocyte Count 0.43 X10^3/uL (0.83-4.51); Absolute Neutrophil Count 18.8 X10^3/uL (2.0-7.7); Basophil# 0.04 X10^3/uL; Basophil% 0.2 % (0-1); Hematocrit 35.3 % (40-54); Hemoglobin 11.4 g/dL (13.0-16.5); Lymphocyte # 0.43 X10^3/ul (4.0); Lymphocyte % 2.1 % (19-41); Mean Corp Hgb Conc 32.3 g/dL (32-36); Mean Corpuscular Hgb 28.9 pg (27.0-32.0); Mean Corpuscular Volume 89.6 fL (80-94); Mean Platelet Vol. 8.5 fl (6.2-12.0); Monocyte# 0.58 X10^3/uL; Monocyte% 2.9 % (0-10); NRBC Flagged by Analyzer 0 % (0-5); Neutrophil # 18.82 X10^3/uL (2.7-7.7); Neutrophil % 93.9 % (47-70); POSITIVE DIFFERENTIAL YES; Platelet Count 726 K/mm3 (150-450); RBC Distribution Width SD 42.8 fl (35.1-43.9); Red Blood Count 3.94 M/mm3 (4.6-6.2); White Blood Count 20.1 K/mm3 (4.4-11.0)
[2019-10-22 16:19] LABS: ALB/GLOB Ratio 0.8 RATIO (0.9-2.4); AST(SGOT) 19 U/L (15-37); Alanine Aminotransfer ALT/SGPT 36 U/L (16-61); Albumin, Serum 3.3 g/dL (3.2-5.0); Alkaline Phosphatase 66 U/L (45-117); Anion Gap 12 (5-15); BUN 28 mg/dL (7-18); BUN/Creat Ratio 23.9 RATIO (10-20); Calcium,Total 9.1 mg/dL (8.5-10.1); Chloride 97 mmol/L (98-107); Creatinine, Serum 1.17 mg/dL (0.70-1.30); EST Glomerular Filtration Rate 63 mL/min (>60); Est Glom Filt Rate - Afr Amer 76 mL/min (>60); Estimated Creatinine Clearance 50.66 ml/min; Glucose 239 mg/dL (74-106); Potassium 4.8 mmol/L (3.5-5.1); Protein, Total 7.3 g/dL (6.4-8.2); Sodium Level 131 mmol/L (136-145)
--- NOTE | 2019-10-22 16:20 | RAD_ITS ---
STUDY: X-RAY CHEST REASON FOR EXAM: Male, 84 years old. CONFUSION, NEURO SX TECHNIQUE: Single AP portable view of the chest. COMPARISON: 10/22/2019 12/09/1957 FINDINGS: The lungs are clear and expanded. There is no demonstrated pleural abnormality. Normal size heart. Normal mediastinum and raul. Normal visualized pulmonary arteries. Normal visualized aortic arch and descending thoracic aorta. Normal visualized thoracic spine. Normal visualized ribs, clavicles, and shoulders. There is no demonstrated abnormality of the visualized soft tissue structures of the upper abdomen. RAD/Chest 1 View (Portable) IMPRESSION: Normal x-ray examination of the chest. Electronically Signed: Juno Villa MD at 17:02 EDT Tel , Service support ,
[2019-10-22 16:22] LABS: Differential Indicated SCAN CRITERIA MET
--- NOTE | 2019-10-22 16:23 | ED.RN ---
ED physician gave ok for patient to take tylenol by mouth.
--- NOTE | 2019-10-22 16:28 | ED.VIS.GEN ---
History of Present Illness Chief Complaint: Confusion Narrative: Patient had a laminectomy about 12 days ago. He is in a rehab at our institution, he was briefly transferred back to [facility] for a repeat appointment when he came back he was confused. He was brought to the emergency department and a stroke team was called per emergency department protocol, at that time I went and saw the patient right away. He was on the monitor and he appeared quite tachycardic and he was quite warm. He was confused he knew his name but did not know the month or how old he was. He was following directions. It was quite difficult to get any significant answer from him other than his name. Past Medical History - Allergies and Home Meds Allergies/Adverse Reactions: Allergies No Known Allergies Allergy (Verified 10/22/19 15:34) Primary Care Physician: Claudio Garibay DO [Primary Care Provider] - Past Medical History: - - Patient has multiple medical problems, these were reviewed from his paperwork on presentation Surgical History: herniorrhaphy, - - Brachytherapy, Bilateral carpal tunnel release, Left lower extremity coumpound fracture, right middle finger amputation, right ulnar nerve decompression. Smoking Status: Never smoker - Family History Paternal Family History: Reports: Hypertension Maternal Family History: Reports: Cancer - Leukemia. Review of Systems ROS: Unable to Obtain - Secondary to patient mental status Physical Exam Vital Signs/Narrative: Vital Signs Temp Pulse Resp BP Pulse Ox 10/22/19 15:38 102.9 F H 129 H 28 H 185/88 H 98 General: - - Patient appears somewhat anxious, he appears in some distress. Head: Normocephalic, Atraumatic Eyes: Perrl ENT: Dry mucous membranes, - - No upper airway congestion Neck: Supple Cardiovascular: Regular rhythm, Tachycardia Respiratory: No distress, CTA bilaterally Abdomen: Soft, Nontender Back: - - I examined the incision site on the lumbosacral spine region, it is clean dry and intact without signs of infection there is some subcutaneous edema but not subcu emphysema or crepitus. Skin: Normal color, No rash Neurological: Alert, Normal Strength, Normal Sensation, - - Oriented to person only Psychological: Normal affect Diagnostic/Tx/Re-eval - Rhythm Strip Rhythm Strip: Sinus Rhythm Rate: 121 Ectopy: None - EKG Initial EKG Interpretation: Sinus Rhythm, - - Sinus tachycardia with a rate of 121. Nonspecific ST changes throughout. Normal [place] and QTc intervals otherwise unremarkable EKG - Medical Decision Making Patient has a fever, tachycardia and confusion, this is likely sepsis and not stroke because the stroke team was called I did talk to the stroke neurologist at [facility], it is agreed upon that after the CAT scan no further stroke work-up is needed. Patient does not meet criteria for TPA since this is not a stroke. Patient is found to have septic shock, as of now I do not have a source, I ordered an MRI stat since he did have recent surgery on his lumbar spine. Broad-spectrum antibiotics IV fluids per septic shock protocol were initiated. The MRI did show an abnormal fluid collection, because of the artifact no obvious abscess was seen but is not ruled out. I do not have any other source of infection, repeat lactate did not completely clear, we gave more IV fluids and started maintenance. Patient still has a diagnosis of septic shock I called ICU at [facility] and patient will be admitted there. I discussed with the ICU doctor. I also requested per call center to talk to the on-call physician for the orthopedic surgeon, this is still pending. Regardless patient will be transferred for definitive care. - Critical Care Time Critical care time (excluding procedures): 30-74 minutes, - - Patient is found to be in septic shock, he is critically ill, I spent time with the patient at the bedside, discussing with other physicians and bedside care. ED Disposition - Plan for ED Patient: Disposition: [facility] Diagnosis: Septic shock, Delirium
[2019-10-22 16:32] LABS: Lactic Acid 4.8 mmol/L (0.4-1.9)
--- NOTE | 2019-10-22 16:36 | MRI_ITS ---
STUDY: MRI LUMBAR SPINE WITHOUT CONTRAST REASON FOR EXAM: Male, 84 years old. Fever, confusion,lumbar abscess?, Lumbar fusion 10/05/2019. Best images possible. Pt was premedicated with haldol and ativan TECHNIQUE: Standardized fat and water weighted pulse sequences were obtained in the sagittal and axial planes. COMPARISON: None FINDINGS: The study is severely limited by motion artifact. Several of the imaging sequences are nondiagnostic in quality. Grossly normal lumbar alignment. Conus medullaris terminates at the L1 level. Detail within the conus medullaris is poorly seen. Posterior pedicle fusions at L3, L4, and L5. Bilateral laminectomies at the L2-3, L3-4, and L4-5 levels. No acute compression fracture is visible. A large irregular fluid collection is present posteriorly extending from the L2 level to the L5 level, measuring approximately 8 cm craniocaudal by 8 cm transverse by 5 cm anteroposterior. It extends to the dorsal aspect of the thecal sac. Differential includes pseudomeningocele, phlegmon, and postoperative seroma. No evidence of severe central canal stenosis. MRI/Spine Lumbar (Routine) IMPRESSION: The study is severely limited by motion artifact. Several of the imaging sequences are nondiagnostic in quality. Large irregular fluid collection posteriorly extending from L2 to L5 levels, and extending to the dorsal aspect of the thecal sac. Differential includes pseudomeningocele, phlegmon, and postoperative seroma. Evaluation for intracanalicular abscess is very limited due to lack of IV contrast and significant motion artifact. Electronically Signed: Colin Alfredo MD at 19:42 EDT Tel , Service support ,
[2019-10-22 16:47] LABS: Differential Comment SCANNED
[2019-10-22 17:03] LABS: International Normalized Ratio 1.2; Prothrombin Time (Protime)PT. 14.2 SECONDS (11.7-14.9)
[2019-10-22 17:04] LABS: Partial Thromboplast Time 23.2 Seconds (24.1-36.2)
[2019-10-22 17:32] LABS: Bacteria 0 SEEN /hpf (None Seen); Mucous, Urine 0 SEEN /hpf (<or=2+); Squamous Epithelial Cells - UA 0 SEEN /hpf (0-5)
[2019-10-22 17:35] LABS: Color, Urine Yellow (Yellow); Glucose, Dipstick 100 mg/dl (Normal); Ketone-Dipstick Negative (Negative); Leukocyte Esterase-Dipstick 25 /ul (Negative); Nitrite-Dipstick Negative (Negative); Occult Blood-Urine 250 /ul (Negative); Protein-Dipstick 30 mg/dl (Negative); Urine Bilirubin Dipstick Negative (Negative); Urine Clarity Sl. Cloudy (Clear); Urine Urobilinogen Normal (Normal); Urine pH 6.5 (5.0 - 8.0)
[2019-10-22 18:24] LABS: Red Blood Cells-Urine 50-100 SEEN /hpf (0-5); White Blood Cells 0-5 SEEN /hpf (0-5)
[2019-10-22] MEDS: LORazepam 2 MG/ML Syringe 0.5 MG IV (18:32)
[2019-10-22] MEDS: Haloperidol Lactate 5 MG/ML Vial 2 MG IM (18:36)
[2019-10-22 19:51] LABS: Reflex Lactate? Y
[2019-10-22 20:42] LABS: Lactic Acid 3.3 mmol/L (0.4-1.9)
[2019-10-22] MEDS: 0.9% Normal Saline 1,000 ML 250 ML IV (22:36)
== END 2019-10-22 22:42 | disposition short-term general hospital (02) ==
PROVIDERS: Emergency Provider Emergency Medicine; PCP Preventive Medicine Occupational Medicine
DX: A41.9 Sepsis, unspecified organism (principal); R65.21 Severe sepsis with septic shock; R41.0 Disorientation, unspecified
CPT/HCPCS: 70450; 71045; 72148; 80053; 81001; 83605; 84484; 85025; 85610; 85730; 87040; 87086; 93005; 96361; 96365; 96366; 96368; 96372; 96375; 99285; J7030; J7050; A4216

== ENCOUNTER 2019-11-02 18:06 | Inpatient (IN) | payer MEDICARE, SELFPAY ==
[2019-10-22 15:38] VITALS: BMI 27.1
[2019-11-02 18:19] VITALS: BP 112/62; PULSE 94; TEMP 37; O2SAT 98
[2019-11-02 20:25] VITALS: PULSE 89; RESP 16; O2SAT 97; BMI 27.9
[2019-11-02] MEDS: MELATONIN 3 MG TABLET 6 MG PO (21:06)
--- NOTE | 2019-11-02 21:13 | HP.PCM_ITS ---
Problem List (1) Severe sepsis Status: Acute (2) Metabolic encephalopathy Status: Acute (3) Infection of lumbar spine Status: Acute (4) AGRICULTURAL ENGINEERING TECHNICIAN infection Status: Acute (5) Debility Status: Acute (6) Lumbar spinal stenosis Status: Chronic (7) Weakness of both legs Status: Chronic (8) Fecal impaction of colon Status: Chronic (9) Hyperlipidemia Status: Chronic (10) Prostate cancer Status: Chronic (11) Osteoarthritis Status: Chronic (12) Hearing loss Status: Chronic (13) Hypertension Status: Chronic History of Present Illness Date of Admission: 11/02/19 Chief Complaint: Here for rehabilitation, strengthening, prior to discharge home with . The patient is a 84 year old Male with below past medical history with followin10/05/2019 Dr. Jimenez performed lumbar spine surgery. 10/10/2019 Admit to TCU for rehabilitation. 10/22/2019 Fever, confusion, low back pain. 10/22/2019 MRI lumbar spine shows large abnormal dorsal fluid collection. Transfer to [facility] for septic shock, rule out lumbar spine abscess. 10/23/2019 Admit to [facility]. Continue Vancomycin, Zosyn, follow up on blood cultures from [facility]. IV Fluids. 10/25/2019 Irrigation & debridement of lumbar surgical site with repair of dural tear. 10/26/2019 Continue IV antibiotics. PT/OT. 10/27/2019 Blood cultures negative, Urine cultures negative. Continue IV Cefepime, IV Vancomycin. Encephalopathy improved. No DVT prophylaxis until 5 days postop. 11/02/2019 Admit to TCU with debility, here for rehabilitation, strengthening, prior to discharge home with . Past Medical History Past Medical History (Chronic Problems): Chronic Problems Lumbar spinal stenosis (Chronic) Weakness of both legs (Chronic) Fecal impaction of colon (Chronic) Hyperlipidemia (Chronic) Prostate cancer (Chronic) Osteoarthritis (Chronic) Hearing loss (Chronic) Hypertension (Chronic) Allergies No Known Allergies Allergy (Verified 10/22/19 15:34) Home Medications: Ambulatory Orders Medication Instructions Recorded Amlodipine [Norvasc] 10 mg PO DAILY 11/02/19 Cefepime HCl [Maxipime] 2 gm IV Q12 11/02/19 Cholecalciferol (Vitamin D3) 25 mcg PO DAILY 11/02/19 [Vitamin D3] Cyanocobalamin [Vitamin B12] 500 mcg PO DAILY@0800 11/02/19 Fluticasone 0.05% [Flonase Nasal 1 spray NASAL DAILY 11/02/19 [place]] Guaifenesin [Mucinex] 600 mg PO BID 11/02/19 Losartan Potassium [Cozaar] 100 mg PO DAILY 11/02/19 Melatonin 6 mg PO QHS 11/02/19 Multivitamin [Daily Multiple 1 ea PO DAILY 11/02/19 Vitamin] Polyethylene Glycol 3350 [Miralax] 17 gm PO DAILY 11/02/19 Senna/Docusate Sodium [Senokot-S] 1 tab PO BID 11/02/19 Vancomycin HCl in Water 1,250 mg IV Q12H 11/02/19 [Vancomycin 1,250 mg/12.5 ml Vl] Surgical History: herniorrhaphy, - - Brachytherapy, Bilateral carpal tunnel release, Left lower extremity coumpound fracture, right middle finger amputation, right ulnar nerve decompression, irrigation & debridement of lumbar surgical site with repair of dural tear. Psychiatric History: No pertinent psych hx Lives: Spouse/ Significant Other Smoking Status: Never smoker Tobacco Use: Non-smoker Alcohol: None Drugs: None - *Family History Paternal History Items: Hypertension Maternal History Items: Cancer - Leukemia. Review of Systems Constitutional: Denies: Chills, Fever, Weight Change HEENT: Denies: Head Aches, Sinus Congestion, Sinus Drainage Cardiovascular: Denies: Chest Pain, Palpitations Respiratory: Denies: Cough, Shortness of breath at rest, Sputum production Gastrointestinal: Denies: Abdominal Pain, Nausea, Vomiting Genitourinary: Denies: Dysuria Musculoskeletal: Denies: Joint Pain, Joint Tenderness Skin: Denies: Rash, Wounds Neurological: Denies: Numbness, Tingling, Focal weakness Psychiatric: Denies: Anxiety, Depression, Homicidal Ideations, Suicidal Ideations Hematologic/ Lymphatic: Denies: Easy Bruising, Easy Bleeding VTE Information - Inpt Only VTE Present on Admission: No VTE Mechan Device Prophylaxis: Knee High GOLDEN Hose VTE Pharm Prophylaxis ordered?: Yes Patient Problems: Active and Suspected Problems Severe sepsis (Acute) Metabolic encephalopathy (Acute) Infection of lumbar spine (Acute) AGRICULTURAL ENGINEERING TECHNICIAN infection (Acute) - Physical Exam Vitals/I&O's: Body Mass Index (BMI) 27.1 Finger Stick Blood Glucose 260 General: Alert, Oriented x3, Cooperative HEENT: Atraumatic, PERRLA, EOMI, Normocephalic Neck: Supple, No JVD, Negative Carotid Bruits Lungs: Clear to auscultation, Normal air movement Cardiovascular: Regular rate, No murmurs Abdomen: Bowel Sounds Present, Soft, Non Tender Extremities: No edema, Capillary Refill Less than 3 Seconds Skin: No rashes, No breakdown Musculoskeletal: No Tenderness to Palpation of Joints or Extremities Neurological: Cranial nerves II-XII grossly intact Psych/Mental Status: Normal Affect, Appropriate Current Medications Amlodipine Besylate (Norvasc) 10 mg PO DAILY [facility] Cholecalciferol (Vitamin D (25mcg)) 1,000 unit PO DAILYCM [facility] Cyanocobalamin (Vitamin B12) 500 mcg PO DAILY@0800 [facility] Fluticasone Propionate (Flonase Nasal [place]) 1 spray NASAL DAILY [facility]ON[facility] Guaifenesin (Mucinex) 600 mg PO BID [facility] Heparin Sodium (Beef Lung) () 50 units IV UD PRN PRN Reason: PICC Line Heparin Flush Sodium Chloride () 250 mls @ 15 mls/hr IV .[id number] PRN PRN Reason: Saline Flush Sodium Chloride () 250 mls @ 15 mls/hr IV .[id number] PRN PRN Reason: Additional IVPB Infusion Vancomycin IV Pharmacy to Dose (1 ea/ Sodium Chloride) 500 mls @ 250 mls/hr IV X1 PRN; Protocol PRN Reason: Rx to Dose Cefepime HCl 2 gm/ Sodium (Chloride) 100 mls @ 200 mls/hr IV Q12@1000,2200 [facility] Stop: 12/02/21 22:01 Vancomycin HCl 1,250 mg/ (Sodium Chloride) 275 mls @ 167 mls/hr IV Q12H [facility] Stop: 12/03/19 16:01 Losartan Potassium (Cozaar) 100 mg PO DAILY [facility] Melatonin (Melatonin) 6 mg PO QHS [facility] Last Admin: 11/02/19 21:06 Dose: 6 mg Documented by: Multivitamins (Multivitamin) 1 tablet PO DAILY@0800 [facility] Polyethylene Glycol (Miralax) 17 gm PO DAILY [facility] Senna/Docusate Sodium (Senokot-S, Mindy-Colace) 1 tablet PO BID [facility] Sodium Chloride () 10 - 40 ml IV UD PRN PRN Reason: Open End PICC Flush Sodium Chloride (0.9% Nacl (Sterile) Posiflush) 10 - 40 ml IV UD PRN PRN Reason: Port access or dressing change Tuberculin PPD (Tubersol, Aplisol, Ppd) 5 tu ID X1 ONE Stop: 11/03/19 10:01 Tuberculin PPD (Tubersol, Aplisol, Ppd) 5 tu ID X1 ONE Stop: 11/10/19 10:01 Assessment/Plan All Active Problems Debility (Acute) Severe sepsis (Acute) Metabolic encephalopathy (Acute) Infection of lumbar spine (Acute) AGRICULTURAL ENGINEERING TECHNICIAN infection (Acute) 84 year old male with below past medical history hospitalized for severe sepsis secondary lumbar surgical site infection requiring debridement and dural tear repair 10/25/2019, complicated by encephalopathy, admitted to TCU with debility, here for rehabilitation, strengthening, prior to discharge home with . * Debility - PT/OT. * Cognition - ST. * Pain - Tylenol 1000MG Q6H PRN pain (1-10). * Bowel - Miralax 17GM daily, Senna/colace 1 tablet BID, Dulcolax 10MG PA daily PRN. * Adult immunization - Administer Prevnar 13, Pneumovax 23, Fluzone as appropriate. * DVT prophylaxis - Lovenox 30MG SC daily. * Hypertension - Losartan 100MG daily, Amlodipine 10MG daily. * Lumbar spine infection with AGRICULTURAL ENGINEERING TECHNICIAN extension - Cefepime 2GM IV Q12H, Vancomycin 1.25GM IV Q12H thru 12/03/2019. * Vitamin D deficiency - D3 1000IU daily. * Vitamin B12 deficiency - B12 500MCG daily. * Allergic Rhinitis - Flonase nasal spray 1 spray nasal daily. * Congestion - Mucinex 600MG twice daily. * Insomnia - Melatonin 6MG QHS. * Nutrition - MVI daily. * Hypokalemia - KCL 40MEQ x 1, then KCL 20MEQ daily, BMP in 2 days.
[2019-11-02] MEDS: 0.9% Saline Lock 10 ML Syringe IV (22:59)
[2019-11-02] MEDS: Cefepime HCl 2 GM in 0.9% NS 100 ML Minibag Q12 IV (23:03)
[2019-11-03 04:00] VITALS: BP 147/72; PULSE 87; RESP 16; TEMP 36.7; O2SAT 97
[2019-11-03 05:50] LABS: Erythrocyte Sedimentation Rate 26 mm/hr (0-20)
[2019-11-03 05:51] LABS: Absolute Lymphocyte Count 1.13 X10^3/uL (0.83-4.51); Absolute Neutrophil Count 4.3 X10^3/uL (2.0-7.7); Basophil# 0.05 X10^3/uL; Basophil% 0.8 % (0-1); Eosinophil# 0.33 X10^3/uL; Eosinophils% 5.2 % (0-5); Hematocrit 31.8 % (40-54); Lymphocyte # 1.13 X10^3/ul (4.0); Lymphocyte % 17.7 % (19-41); Mean Corp Hgb Conc 31.4 g/dL (32-36); Mean Corpuscular Hgb 28.7 pg (27.0-32.0); Mean Corpuscular Volume 91.1 fL (80-94); Mean Platelet Vol. 8.7 fl (6.2-12.0); Monocyte# 0.48 X10^3/uL; Monocyte% 7.5 % (0-10); NRBC Flagged by Analyzer 0 % (0-5); Neutrophil # 4.33 X10^3/uL (2.7-7.7); Neutrophil % 67.7 % (47-70); Platelet Count 315 K/mm3 (150-450); RBC Distribution Width CV 13.7 % (11.6-14.6); RBC Distribution Width SD 44.9 fl (35.1-43.9); Red Blood Count 3.49 M/mm3 (4.6-6.2); White Blood Count 6.4 K/mm3 (4.4-11.0)
[2019-11-03 06:15] LABS: ALB/GLOB Ratio 0.8 RATIO (0.9-2.4); AST(SGOT) 19 U/L (15-37); Alanine Aminotransfer ALT/SGPT 35 U/L (16-61); Albumin, Serum 2.7 g/dL (3.2-5.0); Alkaline Phosphatase 56 U/L (45-117); Anion Gap 6 (5-15); BUN 12 mg/dL (7-18); BUN/Creat Ratio 16.5 RATIO (10-20); CRP 8.73 mg/L (0.0-3.0); Calcium,Total 8.5 mg/dL (8.5-10.1); Chloride 104 mmol/L (98-107); Creatinine, Serum 0.73 mg/dL (0.70-1.30); EST Glomerular Filtration Rate 109 mL/min (>60); Est Glom Filt Rate - Afr Amer 132 mL/min (>60); Estimated Creatinine Clearance 52.25 ml/min; Globulin 3.5 g/dL (2.2-4.2); Glucose 94 mg/dL (74-106); Potassium 3.2 mmol/L (3.5-5.1); Protein, Total 6.2 g/dL (6.4-8.2); Sodium Level 137 mmol/L (136-145)
[2019-11-03] MEDS: Menthol/Lanolin/Calamine/Znox 113 GM Tube 1 APPLIC TOPICAL ×2 (06:22→18:01)
[2019-11-03] MEDS: Nystatin Powder 15gm Bottle 1 APPLIC TOPICAL ×2 (06:23→21:27)
[2019-11-03] MEDS: Losartan Potassium 100 MG Tablet PO (06:23)
[2019-11-03] MEDS: guaiFENesin 600 MG Tablet PO ×2 (06:23→18:00)
[2019-11-03] MEDS: amLODIPine 10 MG Tablet PO (06:23)
[2019-11-03] MEDS: Senna/Docusate Sodium 1 Tablet PO ×2 (06:23→18:01)
[2019-11-03] MEDS: Polyethylene Glycol 3350 17 GM PACKET PO (06:24)
[2019-11-03] MEDS: Fluticasone 0.05% 1 SPRAY NASAL.SRY NASAL (06:24)
[2019-11-03] MEDS: Enoxaparin 30 MG/0.3 ML Syringe SC (06:24)
[2019-11-03] MEDS: Multivitamins,Therapeutic Tablet 1 TABLET PO (08:52)
[2019-11-03] MEDS: 0.9% Saline Lock 10 ML Syringe IV ×2 (08:55→21:26)
[2019-11-03] MEDS: Cefepime HCl 2 GM in 0.9% NS 100 ML Minibag Q12 IV ×2 (09:05→21:24)
[2019-11-03] MEDS: Cyanocobalamin 500 MCG Tablet PO (10:06)
[2019-11-03 10:14] VITALS: PULSE 90; RESP 18; O2SAT 97
[2019-11-03 14:43] VITALS: BP 140/61; PULSE 95; RESP 14; TEMP 36.8; O2SAT 97
[2019-11-03] MEDS: Acetaminophen 500 MG Tablet 1000 MG PO (16:10)
[2019-11-03] MEDS: 0.9 % NaCl (Sterile) Posiflush 10 mL IV (16:14)
--- NOTE | 2019-11-03 16:17 | NURSING ---
spoke with son today w/update and to bring in back brace.
[2019-11-03 16:37] LABS: Vancomycin, Trough Level 16.2 ug/mL (5.0-15.0)
--- NOTE | 2019-11-03 18:07 | PHA.PHARE_ITS ---
Consult Pharmacy has been consulted to manage selected antiobiotic: Vancomycin Type of Consult: Follow-up Suspected Infection: Sepsis Labs: Sodium 137 mmol/L (136-145) 11/03/19 05:20 Potassium 3.2 mmol/L (3.5-5.1) L 11/03/19 05:20 Chloride 104 mmol/L (98-107) 11/03/19 05:20 Carbon Dioxide 27.0 mmol/L (21.0-32.0) 11/03/19 05:20 Anion Gap 6 (5-15) 11/03/19 05:20 BUN 12 mg/dL (7-18) 11/03/19 05:20 Creatinine 0.73 mg/dL (0.70-1.30) 11/03/19 05:20 Est GFR (MDRD) Af Amer 132 mL/min (>60) 11/03/19 05:20 Est GFR (MDRD) Non-Af 109 mL/min (>60) 11/03/19 05:20 BUN/Creatinine Ratio 16.5 RATIO (10-20) 11/03/19 05:20 Glucose 94 mg/dL (74-106) 11/03/19 05:20 Vancomycin Trough 16.2 ug/mL (5.0-15.0) H 11/03/19 15:45 Goal Trough: 15-20 mcg/mL Pharmacy Plan for Drug Dosing: VANCOMYCIN LEVEL RECEIVED Current Vancomycin Dose: 1250mg IV Q12hr Number of Doses Received: 2 doses at [facility] (was on dose previously at other facility) Vancomycin Level: 16.2 Hours Since Last Dose: 12hr Renal Function: 0.73 Lab/Micro: no new Vancomycin Plan/Comments: Continue current vancomycin dose as trough was within goal range of 15-20. Will obtain trough in 2 days to reassess dosing at that time. Pending Level: 11/05/19 @1530 Pharmacy Service will continue to monitor and adjust dosing as required.
[2019-11-03] MEDS: MELATONIN 3 MG TABLET 6 MG PO (21:26)
--- NOTE | 2019-11-04 00:06 | NURSING ---
cbc, bmp trough reports faxed to dr whitt
[2019-11-04 06:13] VITALS: BP 144/74; PULSE 83; RESP 15; TEMP 36.4; O2SAT 98
[2019-11-04] MEDS: Menthol/Lanolin/Calamine/Znox 113 GM Tube 1 APPLIC TOPICAL ×2 (06:15→16:56)
[2019-11-04] MEDS: Losartan Potassium 100 MG Tablet PO (06:16)
[2019-11-04] MEDS: Enoxaparin 30 MG/0.3 ML Syringe SC (06:16)
[2019-11-04] MEDS: Fluticasone 0.05% 1 SPRAY NASAL.SRY NASAL (06:16)
[2019-11-04] MEDS: amLODIPine 10 MG Tablet PO (06:16)
[2019-11-04] MEDS: Senna/Docusate Sodium 1 Tablet PO ×2 (06:16→16:55)
[2019-11-04] MEDS: Polyethylene Glycol 3350 17 GM PACKET PO (06:16)
[2019-11-04] MEDS: guaiFENesin 600 MG Tablet PO ×2 (06:17→16:55)
[2019-11-04] MEDS: Nystatin Powder 15gm Bottle 1 APPLIC TOPICAL ×2 (06:19→22:38)
[2019-11-04] MEDS: Multivitamins,Therapeutic Tablet 1 TABLET PO (08:46)
[2019-11-04] MEDS: Cyanocobalamin 500 MCG Tablet PO (08:46)
[2019-11-04 09:46] VITALS: RESP 16
[2019-11-04] MEDS: Cefepime HCl 2 GM in 0.9% NS 100 ML Minibag Q12 IV ×2 (10:46→22:46)
[2019-11-04] MEDS: 0.9% Saline Lock 10 ML Syringe IV ×3 (10:46→19:43)
[2019-11-04] MEDS: Acetaminophen 500 MG Tablet 1000 MG PO (10:56)
--- NOTE | 2019-11-04 11:49 | PCM.PN.RX ---
<Jessi Bailey M - Last Filed: 11/04/19 11:49> Progress Note - Pharmacy Subjective: TCU ADMISSION Objective: Allergies No Known Allergies Allergy (Verified 10/22/19 15:34) Current Medications Generic Name Dose Route Start Last Admin Trade Name Freq PRN Reason Stop Dose Admin Acetaminophen 1,000 mg 11/02/19 21:26 11/04/19 10:56 Tylenol PO 1,000 mg Q6H PRN PRN Administration Pain Score 1-10/10 Amlodipine Besylate 10 mg 11/03/19 06:00 11/04/19 06:16 Norvasc PO 10 mg DAILY LEONOR Administration Bisacodyl 10 mg 11/02/19 21:27 Dulcolax RECTAL DAILY PRN Constipation Calamine/Phenol 1 applic 11/03/19 06:00 11/04/19 06:15 Calmoseptine Ointment TOPICAL 1 applicatio BID LEONOR Administration Protocol Cholecalciferol 1,000 unit 11/03/19 08:00 11/03/19 08:55 Vitamin D (25mcg) PO 1,000 unit DAILYCM LEONOR Administration Cyanocobalamin 500 mcg 11/03/19 08:00 11/04/19 08:46 Vitamin B12 PO 500 mcg DAILY@0800 LEONOR Administration Enoxaparin Sodium 30 mg 11/03/19 06:00 11/04/19 06:16 Lovenox SC 30 mg DAILY@0600 LEONOR Administration Fluticasone Propionate 1 spray 11/03/19 06:00 11/04/19 06:16 Flonase Nasal [place] NASAL 1 spray DAILY LEONOR Administration Guaifenesin 600 mg 11/03/19 06:00 11/04/19 06:17 Mucinex PO 600 mg BID LEONOR Administration Heparin Sodium (Beef Lung) 50 units 11/02/19 18:44 IV UD PRN PICC Line Heparin Flush Sodium Chloride 250 mls @ 15 mls/hr 11/02/19 18:44 11/04/19 05:49 IV 0 mls/hr .[id number] PRN Infusion Saline Flush Sodium Chloride 250 mls @ 15 mls/hr 11/02/19 18:44 IV .[id number] PRN Additional IVPB Infusion Vancomycin IV Pharmacy to Dose 500 mls @ 250 mls/hr 11/02/19 18:56 1 ea/ Sodium Chloride IV X1 PRN Rx to Dose Protocol Cefepime HCl 2 gm/ Sodium 100 mls @ 200 mls/hr 11/02/19 22:00 11/04/19 10:46 Chloride IV 12/02/21 22:01 200 mls/hr Q12@1000,2200 LEONOR Administration Vancomycin HCl 1,250 mg/ 275 mls @ 167 mls/hr 11/03/19 04:00 11/04/19 05:31 Sodium Chloride IV 12/03/19 16:01 Infused Q12H [facility]ONOR Infusion Losartan Potassium 100 mg 11/03/19 06:00 11/04/19 06:16 Cozaar PO 100 mg DAILY [facility]ONOR Administration Melatonin 6 mg 11/02/19 22:00 11/03/19 21:26 Melatonin PO 6 mg QHS LEONOR Administration Multivitamins 1 tablet 11/03/19 08:00 11/04/19 08:46 Multivitamin PO 1 tablet DAILY@0800 LEONOR Administration Nystatin 1 applic 11/03/19 22:00 11/04/19 06:19 Mycostatin Powder TOPICAL 1 applicatio 0600,2200 LEONOR Administration Protocol Polyethylene Glycol 17 gm 11/03/19 06:00 11/04/19 06:16 Miralax PO 17 gm DAILY LEONOR Administration Senna/Docusate Sodium 1 tablet 11/03/19 06:00 11/04/19 06:16 Senokot-S, Mindy-Colace PO 1 tablet BID [facility]ONOR Administration Sodium Chloride 10 - 40 ml 11/02/19 18:44 11/04/19 10:46 IV 20 ml UD PRN Administration Open End PICC Flush Sodium Chloride 10 - 40 ml 11/02/19 18:44 11/03/19 16:14 0.9% Nacl (Sterile) Posiflush IV 20 ml UD PRN Administration Port access or dressing change Problem List Severe sepsis (Acute) Metabolic encephalopathy (Acute) Infection of lumbar spine (Acute) LEVEL DESIGNER infection (Acute) Vital Signs Temp Pulse Resp BP Pulse Ox 97.6 F L 83 16 144/74 H 98 11/04/19 06:13 11/04/19 06:13 11/04/19 09:46 11/04/19 06:13 11/04/19 06:13 Oxygen Delivery Method Room Air Weight: 83.461 kg Body Mass Index (BMI) 27.9 Finger Stick Blood Glucose 260 Sodium 137 mmol/L (136-145) 11/03/19 05:20 Potassium 3.2 mmol/L (3.5-5.1) L 11/03/19 05:20 Chloride 104 mmol/L (98-107) 11/03/19 05:20 Carbon Dioxide 27.0 mmol/L (21.0-32.0) 11/03/19 05:20 Anion Gap 6 (5-15) 11/03/19 05:20 BUN 12 mg/dL (7-18) 11/03/19 05:20 Creatinine 0.73 mg/dL (0.70-1.30) 11/03/19 05:20 Est GFR (MDRD) Af Amer 132 mL/min (>60) 11/03/19 05:20 Est GFR (MDRD) Non-Af 109 mL/min (>60) 11/03/19 05:20 BUN/Creatinine Ratio 16.5 RATIO (10-20) 11/03/19 05:20 Glucose 94 mg/dL (74-106) 11/03/19 05:20 Vancomycin Trough 16.2 ug/mL (5.0-15.0) H 11/03/19 15:45 Assessment/Plan: 1. Pain: Tylenol 1000mg PO Q6h PRN Pain 1-02/04. Please continue to monitor for increased/decreased pain, PRN medication usage. 2. Spinal infection: Cefepime 2g IV Q12hrs, Vancomycin 1250mg IV Q12hr thru 12/03/19. Please continue to monitor for resolution of infection, BMP at least weekly to assess renal function, vancomycin troughs as appropriate. Vancomycin currently being managed by pharmacy services. 3. Hypertension: Amlodipine 10mg PO Daily, losartan 100mg PO Daily. Please continue to monitor blood pressure (last reading 144/74). *4. DVT Prophylaxis: Lovenox 30mg SC Daily. Current CrCl > 30mL/min, consider increasing dose of Lovenox to 40mg SC Daily, thanks. 5. Allergic Rhinitis/Cough/Congestion: Flonase nasal spray 1 spray nasally daily, Mucinex 600mg PO BID. Please continue to monitor for medication effectiveness, symptom improvement. 6. Insomnia: Melatonin 6mg PO QHS. Please continue to monitor for medication effectiveness. 7. General Wellness: Vitamin D3 1000 units PO Daily, Vitamin B12 500mcg PO Daily, MVI 1 tab PO Daily. Please continue to monitor use, obtain labs annually as clinically indicated. Psychotropic Medications: None Unnecessary Medications: None Bowel Regimen: Miralax 17g PO daily, Senna/Docusate 1 tab PO BID, Dulcolax 10mg rectal daily PRN. Please continue to monitor I&O and for S/S constipation and/or diarrhea. Date of Note:: 11/04/19 - Provider Comments Provider responsibility: Provider responsible to enter orders to implement recommendations <Diaz Hawthorne Chi - Last Filed: 11/04/19 17:47> Progress Note - Pharmacy Subjective: [] Objective: Allergies No Known Allergies Allergy (Verified 10/22/19 15:34) Current Medications Generic Name Dose Route Start Last Admin Trade Name Freq PRN Reason Stop Dose Admin Acetaminophen 1,000 mg 11/02/19 21:26 11/04/19 10:56 Tylenol PO 1,000 mg Q6H PRN PRN Administration Pain Score 1-10/10 Amlodipine Besylate 10 mg 11/03/19 06:00 11/04/19 06:16 Norvasc PO 10 mg DAILY LEONOR Administration Bisacodyl 10 mg 11/02/19 21:27 Dulcolax RECTAL DAILY PRN Constipation Calamine/Phenol 1 applic 11/03/19 06:00 11/04/19 16:56 Calmoseptine Ointment TOPICAL 1 applicatio BID LEONOR Administration Protocol Cholecalciferol 1,000 unit 11/03/19 08:00 11/03/19 08:55 Vitamin D (25mcg) PO 1,000 unit DAILYCM LEONOR Administration Cyanocobalamin 500 mcg 11/03/19 08:00 11/04/19 08:46 Vitamin B12 PO 500 mcg DAILY@0800 LEONOR Administration Enoxaparin Sodium 30 mg 11/03/19 06:00 11/04/19 06:16 Lovenox SC 30 mg DAILY@0600 LEONOR Administration Fluticasone Propionate 1 spray 11/03/19 06:00 11/04/19 06:16 Flonase Nasal [place] NASAL 1 spray DAILY LEONOR Administration Guaifenesin 600 mg 11/03/19 06:00 11/04/19 16:55 Mucinex PO 600 mg BID LEONOR Administration Heparin Sodium (Beef Lung) 50 units 11/02/19 18:44 IV UD PRN PICC Line Heparin Flush Sodium Chloride 250 mls @ 15 mls/hr 11/02/19 18:44 11/04/19 05:49 IV 0 mls/hr .[id number] PRN Infusion Saline Flush Sodium Chloride 250 mls @ 15 mls/hr 11/02/19 18:44 IV .[id number] PRN Additional IVPB Infusion Cefepime HCl 2 gm/ Sodium 100 mls @ 200 mls/hr 11/02/19 22:00 11/04/19 15:30 Chloride IV 12/02/21 22:01 Infused Q12@1000,2200 LEONOR Infusion Vancomycin HCl 1,250 mg/ 275 mls @ 167 mls/hr 11/03/19 04:00 11/04/19 15:29 Sodium Chloride IV 12/03/19 16:01 167 mls/hr Q12H LEONOR Administration Losartan Potassium 100 mg 11/03/19 06:00 11/04/19 06:16 Cozaar PO 100 mg DAILY LEONOR Administration Melatonin 6 mg 11/02/19 22:00 11/03/19 21:26 Melatonin PO 6 mg QHS LEONOR Administration Multivitamins 1 tablet 11/03/19 08:00 11/04/19 08:46 Multivitamin PO 1 tablet DAILY@0800 LEONOR Administration Nystatin 1 applic 11/03/19 22:00 11/04/19 06:19 Mycostatin Powder TOPICAL 1 applicatio 0600,2200 LEONOR Administration Protocol Polyethylene Glycol 17 gm 11/03/19 06:00 11/04/19 06:16 Miralax PO 17 gm DAILY LEONOR Administration Senna/Docusate Sodium 1 tablet 11/03/19 06:00 11/04/19 16:55 Senokot-S, Mindy-Colace PO 1 tablet BID LEONOR Administration Sodium Chloride 10 - 40 ml 11/02/19 18:44 11/04/19 15:29 IV 10 ml UD PRN Administration Open End PICC Flush Sodium Chloride 10 - 40 ml 11/02/19 18:44 11/03/19 16:14 0.9% Nacl (Sterile) Posiflush IV 20 ml UD PRN Administration Port access or dressing change Problem List Severe sepsis (Acute) Metabolic encephalopathy (Acute) Infection of lumbar spine (Acute) LEVEL DESIGNER infection (Acute) Vital Signs Temp Pulse Resp BP Pulse Ox 97.3 F L 97 18 125/60 H 97 11/04/19 14:24 11/04/19 14:24 11/04/19 14:24 11/04/19 14:24 11/04/19 14:24 Oxygen Delivery Method Room Air Weight: 83.461 kg Body Mass Index (BMI) 27.9 Finger Stick Blood Glucose 260 Sodium 137 mmol/L (136-145) 11/03/19 05:20 Potassium 3.2 mmol/L (3.5-5.1) L 11/03/19 05:20 Chloride 104 mmol/L (98-107) 11/03/19 05:20 Carbon Dioxide 27.0 mmol/L (21.0-32.0) 11/03/19 05:20 Anion Gap 6 (5-15) 11/03/19 05:20 BUN 12 mg/dL (7-18) 11/03/19 05:20 Creatinine 0.73 mg/dL (0.70-1.30) 11/03/19 05:20 Est GFR (MDRD) Af Amer 132 mL/min (>60) 11/03/19 05:20 Est GFR (MDRD) Non-Af 109 mL/min (>60) 11/03/19 05:20 BUN/Creatinine Ratio 16.5 RATIO (10-20) 11/03/19 05:20 Glucose 94 mg/dL (74-106) 11/03/19 05:20 Vancomycin Trough 16.2 ug/mL (5.0-15.0) H 11/03/19 15:45 Assessment/Plan: Psychotropic Medications: Unnecessary Medications: Bowel Regimen: - Provider Comments Provider responsibility: Provider responsible to enter orders to implement recommendations Provider Comments to Recommendations by Pharmacy: Agree
[2019-11-04 14:24] VITALS: BP 125/60; PULSE 97; RESP 18; TEMP 36.3; O2SAT 97
--- NOTE | 2019-11-04 15:11 | NURSING ---
Dr Blevins office calls and orders received for weekly labs to be drawn on Mondays. Dr Blevins to adjust vancomycin based on vancomycin trough.
--- NOTE | 2019-11-04 15:28 | CHAPLAIN ---
Type of Pastoral Visit _x__ Initial Visit ___ Follow-up Visit ___ On-call Visit ___ General Patient Visit ___ Spiritual Assessment ___ Family Conference ___ Bereavement ___ Rapid Response ___ Code Blue ___ Other (describe below) Pastoral Care Referral From _x__ Patient _x__ Family ___ Nurse ___ Physician ___ Educational Director ___ Diploma Pharmacy Technician ___ Other (describe below) Sacrament/Intervention _x__ Active listening ___ Anointing ___ Jain ___ Bereavement ___ Communion ___ Thu exploration ___ _x__ Life review _x__ Prayer ___ Reconciliation ___ Sacrament of Sick _x__ Supportive presence ___ Wedding ___ Other (describe below) Pastoral Comments family member requested spiritual care support for patient; pt welcoming of visit and states his recent health issues; pt recognizes that he missed some days during hospitalization due to being out of it and that I am still foggy on details about things; pt concern is that he has been unable to see his since October 04 and unable to see family; pt gives life review and is talkative; pt open to future visits and prayer; pt is member of [employer] [facility] [employer] [facility] [employer] in [place]
--- NOTE | 2019-11-04 15:40 | PCM.RX.CS ---
Consult Pharmacy has been consulted to manage selected antiobiotic: Vancomycin Type of Consult: Follow-up Suspected Infection: Sepsis Labs: Sodium 137 mmol/L (136-145) 11/03/19 05:20 Potassium 3.2 mmol/L (3.5-5.1) L 11/03/19 05:20 Chloride 104 mmol/L (98-107) 11/03/19 05:20 Carbon Dioxide 27.0 mmol/L (21.0-32.0) 11/03/19 05:20 Anion Gap 6 (5-15) 11/03/19 05:20 BUN 12 mg/dL (7-18) 11/03/19 05:20 Creatinine 0.73 mg/dL (0.70-1.30) 11/03/19 05:20 Est GFR (MDRD) Af Amer 132 mL/min (>60) 11/03/19 05:20 Est GFR (MDRD) Non-Af 109 mL/min (>60) 11/03/19 05:20 BUN/Creatinine Ratio 16.5 RATIO (10-20) 11/03/19 05:20 Glucose 94 mg/dL (74-106) 11/03/19 05:20 Vancomycin Trough 16.2 ug/mL (5.0-15.0) H 11/03/19 15:45 Goal Trough: 15-20 mcg/mL Pharmacy Plan for Drug Dosing: Pharmacy received a nursing communication order from Dr. Hawthorne that Dr. Blevins will be handling vancomycin troughs and adjustments. Pharmacy will sign off regarding dosing of vancomycin but will still be available for questions if needed.
[2019-11-04] MEDS: Alteplase 2 MG/2 ML Vial IV ×2 (22:02)
[2019-11-04] MEDS: MELATONIN 3 MG TABLET 6 MG PO (22:37)
[2019-11-05] MEDS: 0.9% Saline Lock 10 ML Syringe IV ×6 (04:24→23:33)
[2019-11-05 04:31] VITALS: BP 124/65; PULSE 89; RESP 16; TEMP 36.8; O2SAT 96
[2019-11-05] MEDS: Polyethylene Glycol 3350 17 GM PACKET PO (05:57)
[2019-11-05] MEDS: Enoxaparin 30 MG/0.3 ML Syringe SC (05:57)
[2019-11-05] MEDS: Senna/Docusate Sodium 1 Tablet PO ×2 (05:58→17:25)
[2019-11-05] MEDS: guaiFENesin 600 MG Tablet PO ×2 (05:58→17:24)
[2019-11-05] MEDS: amLODIPine 10 MG Tablet PO (05:58)
[2019-11-05] MEDS: Losartan Potassium 100 MG Tablet PO (05:58)
[2019-11-05] MEDS: Nystatin Powder 15gm Bottle 1 APPLIC TOPICAL ×2 (05:59→22:03)
[2019-11-05] MEDS: Fluticasone 0.05% 1 SPRAY NASAL.SRY NASAL (05:59)
[2019-11-05] MEDS: Menthol/Lanolin/Calamine/Znox 113 GM Tube 1 APPLIC TOPICAL ×2 (06:00→17:25)
[2019-11-05 06:22] LABS: Anion Gap 7 (5-15); BUN 12 mg/dL (7-18); BUN/Creat Ratio 17.1 RATIO (10-20); Calcium,Total 8.5 mg/dL (8.5-10.1); Chloride 105 mmol/L (98-107); EST Glomerular Filtration Rate 114 mL/min (>60); Est Glom Filt Rate - Afr Amer 137 mL/min (>60); Estimated Creatinine Clearance 52.25 ml/min; Glucose 99 mg/dL (74-106); Potassium 3.7 mmol/L (3.5-5.1); Sodium Level 137 mmol/L (136-145)
[2019-11-05] MEDS: Acetaminophen 500 MG Tablet 1000 MG PO ×2 (07:29→17:27)
[2019-11-05] MEDS: Multivitamins,Therapeutic Tablet 1 TABLET PO (07:34)
[2019-11-05] MEDS: Cyanocobalamin 500 MCG Tablet PO (07:34)
[2019-11-05] MEDS: Cefepime HCl 2 GM in 0.9% NS 100 ML Minibag Q12 IV ×2 (09:47→22:01)
[2019-11-05 13:46] VITALS: BP 131/53; PULSE 102; RESP 18; TEMP 36; O2SAT 96
[2019-11-05] MEDS: MELATONIN 3 MG TABLET 6 MG PO (22:01)
[2019-11-06 04:00] VITALS: BP 146/76; PULSE 91; RESP 15; O2SAT 99
[2019-11-06] MEDS: 0.9% Saline Lock 10 ML Syringe IV ×5 (04:05→22:19)
[2019-11-06] MEDS: amLODIPine 10 MG Tablet PO (06:05)
[2019-11-06] MEDS: guaiFENesin 600 MG Tablet PO ×2 (06:05→18:04)
[2019-11-06] MEDS: Enoxaparin 30 MG/0.3 ML Syringe SC (06:05)
[2019-11-06] MEDS: Senna/Docusate Sodium 1 Tablet PO ×2 (06:05→18:04)
[2019-11-06] MEDS: Polyethylene Glycol 3350 17 GM PACKET PO (06:05)
[2019-11-06] MEDS: Losartan Potassium 100 MG Tablet PO (06:05)
[2019-11-06] MEDS: Acetaminophen 500 MG Tablet 1000 MG PO ×2 (06:15→22:28)
[2019-11-06] MEDS: Fluticasone 0.05% 1 SPRAY NASAL.SRY NASAL (06:35)
[2019-11-06] MEDS: Menthol/Lanolin/Calamine/Znox 113 GM Tube 1 APPLIC TOPICAL ×2 (06:36→18:04)
[2019-11-06] MEDS: Nystatin Powder 15gm Bottle 1 APPLIC TOPICAL ×2 (06:36→21:58)
[2019-11-06] MEDS: Cyanocobalamin 500 MCG Tablet PO (07:56)
[2019-11-06] MEDS: Multivitamins,Therapeutic Tablet 1 TABLET PO (07:56)
[2019-11-06] MEDS: Cefepime HCl 2 GM in 0.9% NS 100 ML Minibag Q12 IV ×2 (10:37→22:21)
[2019-11-06] MEDS: LORazepam 0.5 MG Tablet 0.25 MG PO (10:41)
[2019-11-06 11:27] VITALS: PULSE 100; RESP 16; O2SAT 99
[2019-11-06 15:00] VITALS: BP 130/66; PULSE 62; RESP 18; TEMP 36.6; O2SAT 91
[2019-11-06] MEDS: MELATONIN 3 MG TABLET 6 MG PO (21:58)
[2019-11-07] MEDS: Polyethylene Glycol 3350 17 GM PACKET PO (05:57)
[2019-11-07] MEDS: Enoxaparin 30 MG/0.3 ML Syringe SC (05:58)
[2019-11-07] MEDS: Fluticasone 0.05% 1 SPRAY NASAL.SRY NASAL (05:58)
[2019-11-07] MEDS: Senna/Docusate Sodium 1 Tablet PO ×2 (05:58→16:53)
[2019-11-07] MEDS: guaiFENesin 600 MG Tablet PO ×2 (05:58→16:53)
[2019-11-07] MEDS: amLODIPine 10 MG Tablet PO (05:58)
[2019-11-07] MEDS: Losartan Potassium 100 MG Tablet PO (05:58)
[2019-11-07] MEDS: Menthol/Lanolin/Calamine/Znox 113 GM Tube 1 APPLIC TOPICAL ×2 (05:59→16:53)
[2019-11-07] MEDS: Nystatin Powder 15gm Bottle 1 APPLIC TOPICAL ×2 (06:02→21:29)
[2019-11-07 06:15] VITALS: BP 148/73; PULSE 72; RESP 16; TEMP 36.9; O2SAT 94
[2019-11-07] MEDS: Multivitamins,Therapeutic Tablet 1 TABLET PO (08:06)
[2019-11-07] MEDS: Cyanocobalamin 500 MCG Tablet PO (08:06)
[2019-11-07] MEDS: 0.9% Saline Lock 10 ML Syringe IV ×3 (08:06→21:34)
[2019-11-07] MEDS: Cefepime HCl 2 GM in 0.9% NS 100 ML Minibag Q12 IV ×2 (10:22→21:24)
[2019-11-07] MEDS: Acetaminophen 500 MG Tablet 1000 MG PO ×2 (11:49→21:27)
[2019-11-07 14:31] VITALS: BP 154/70; PULSE 97; RESP 18; TEMP 36.8; O2SAT 98
[2019-11-07] MEDS: MELATONIN 3 MG TABLET 6 MG PO (21:28)
[2019-11-08 03:41] LABS: Absolute Lymphocyte Count 0.98 X10^3/uL (0.83-4.51); Basophil# 0.07 X10^3/uL; Basophil% 1.2 % (0-1); Eosinophil# 0.24 X10^3/uL; Eosinophils% 4.2 % (0-5); Hematocrit 30.9 % (40-54); Hemoglobin 9.9 g/dL (13.0-16.5); Lymphocyte # 0.98 X10^3/ul (4.0); Lymphocyte % 17.1 % (19-41); Mean Corpuscular Hgb 28.2 pg (27.0-32.0); Monocyte# 0.43 X10^3/uL; Monocyte% 7.5 % (0-10); NRBC Flagged by Analyzer 0 % (0-5); Neutrophil # 3.97 X10^3/uL (2.7-7.7); Neutrophil % 69.5 % (47-70); Platelet Count 288 K/mm3 (150-450); RBC Distribution Width CV 13.5 % (11.6-14.6); RBC Distribution Width SD 43.4 fl (35.1-43.9); Red Blood Count 3.51 M/mm3 (4.6-6.2)
[2019-11-08 03:54] LABS: ALB/GLOB Ratio 0.8 RATIO (0.9-2.4); AST(SGOT) 16 U/L (15-37); Alanine Aminotransfer ALT/SGPT 30 U/L (16-61); Albumin, Serum 2.7 g/dL (3.2-5.0); Alkaline Phosphatase 47 U/L (45-117); Anion Gap 8 (5-15); BUN 14 mg/dL (7-18); BUN/Creat Ratio 18.1 RATIO (10-20); CRP 7.92 mg/L (0.0-3.0); Calcium,Total 8.3 mg/dL (8.5-10.1); Chloride 106 mmol/L (98-107); Creatinine, Serum 0.77 mg/dL (0.70-1.30); EST Glomerular Filtration Rate 101 mL/min (>60); Est Glom Filt Rate - Afr Amer 123 mL/min (>60); Estimated Creatinine Clearance 52.25 ml/min; Globulin 3.5 g/dL (2.2-4.2); Glucose 99 mg/dL (74-106); Potassium 3.6 mmol/L (3.5-5.1); Protein, Total 6.2 g/dL (6.4-8.2); Sodium Level 138 mmol/L (136-145)
[2019-11-08 03:56] LABS: Erythrocyte Sedimentation Rate 27 mm/hr (0-20)
[2019-11-08 04:00] LABS: Vancomycin, Trough Level 19.2 ug/mL (5.0-15.0)
[2019-11-08 04:18] VITALS: BP 145/73; PULSE 91; RESP 18; TEMP 37; O2SAT 98
[2019-11-08] MEDS: 0.9% Saline Lock 10 ML Syringe IV ×2 (04:18→21:15)
[2019-11-08] MEDS: Acetaminophen 500 MG Tablet 1000 MG PO ×3 (04:20→21:53)
[2019-11-08] MEDS: Enoxaparin 30 MG/0.3 ML Syringe SC (04:21)
[2019-11-08] MEDS: Losartan Potassium 100 MG Tablet PO (04:21)
[2019-11-08] MEDS: Polyethylene Glycol 3350 17 GM PACKET PO (04:21)
[2019-11-08] MEDS: Menthol/Lanolin/Calamine/Znox 113 GM Tube 1 APPLIC TOPICAL ×2 (04:22→18:00)
[2019-11-08] MEDS: amLODIPine 10 MG Tablet PO (04:22)
[2019-11-08] MEDS: Senna/Docusate Sodium 1 Tablet PO ×2 (04:22→18:00)
[2019-11-08] MEDS: Fluticasone 0.05% 1 SPRAY NASAL.SRY NASAL (04:22)
[2019-11-08] MEDS: guaiFENesin 600 MG Tablet PO ×2 (04:22→18:00)
[2019-11-08] MEDS: Nystatin Powder 15gm Bottle 1 APPLIC TOPICAL ×2 (04:29→21:16)
[2019-11-08] MEDS: Cyanocobalamin 500 MCG Tablet PO (07:44)
[2019-11-08] MEDS: Multivitamins,Therapeutic Tablet 1 TABLET PO (07:44)
[2019-11-08] MEDS: Cefepime HCl 2 GM in 0.9% NS 100 ML Minibag Q12 IV ×2 (10:19→21:06)
[2019-11-08 12:29] VITALS: PULSE 101; RESP 18; O2SAT 97
[2019-11-08 15:18] VITALS: BP 138/66; PULSE 101; RESP 18; TEMP 36.4; O2SAT 97
[2019-11-08] MEDS: MELATONIN 3 MG TABLET 6 MG PO (21:48)
[2019-11-09 00:15] LABS: White Blood Count 5.7 K/mm3 (4.4-11.0)
[2019-11-09 04:24] VITALS: BP 147/78; PULSE 93; RESP 18; TEMP 37; O2SAT 98
[2019-11-09] MEDS: 0.9% Saline Lock 10 ML Syringe IV ×3 (04:24→22:04)
[2019-11-09] MEDS: Acetaminophen 500 MG Tablet 1000 MG PO ×4 (04:26→22:12)
[2019-11-09] MEDS: Polyethylene Glycol 3350 17 GM PACKET PO (04:27)
[2019-11-09] MEDS: Fluticasone 0.05% 1 SPRAY NASAL.SRY NASAL (04:27)
[2019-11-09] MEDS: Enoxaparin 30 MG/0.3 ML Syringe SC (04:27)
[2019-11-09] MEDS: guaiFENesin 600 MG Tablet PO ×2 (04:28→16:28)
[2019-11-09] MEDS: Senna/Docusate Sodium 1 Tablet PO ×2 (04:29→16:28)
[2019-11-09] MEDS: Losartan Potassium 100 MG Tablet PO (04:29)
[2019-11-09] MEDS: amLODIPine 10 MG Tablet PO (04:29)
[2019-11-09] MEDS: Nystatin Powder 15gm Bottle 1 APPLIC TOPICAL ×2 (04:33→22:09)
[2019-11-09] MEDS: Menthol/Lanolin/Calamine/Znox 113 GM Tube 1 APPLIC TOPICAL ×3 (04:33→22:11)
[2019-11-09] MEDS: Cyanocobalamin 500 MCG Tablet PO (07:39)
[2019-11-09] MEDS: Multivitamins,Therapeutic Tablet 1 TABLET PO (07:39)
[2019-11-09] MEDS: Cefepime HCl 2 GM in 0.9% NS 100 ML Minibag Q12 IV ×2 (09:22→22:04)
[2019-11-09 14:34] VITALS: BP 141/77; PULSE 102; RESP 18; TEMP 37.2; O2SAT 98
[2019-11-09] MEDS: MELATONIN 3 MG TABLET 6 MG PO (22:12)
[2019-11-10 03:48] VITALS: BP 154/67; PULSE 89; RESP 18; TEMP 36.9; O2SAT 97
[2019-11-10] MEDS: 0.9% Saline Lock 10 ML Syringe IV ×5 (03:49→21:52)
[2019-11-10] MEDS: Senna/Docusate Sodium 1 Tablet PO ×2 (03:57→16:47)
[2019-11-10] MEDS: guaiFENesin 600 MG Tablet PO ×2 (03:57→16:47)
[2019-11-10] MEDS: amLODIPine 10 MG Tablet PO (03:57)
[2019-11-10] MEDS: Losartan Potassium 100 MG Tablet PO (03:57)
[2019-11-10] MEDS: Enoxaparin 30 MG/0.3 ML Syringe SC (03:58)
[2019-11-10] MEDS: Fluticasone 0.05% 1 SPRAY NASAL.SRY NASAL (03:58)
[2019-11-10] MEDS: Polyethylene Glycol 3350 17 GM PACKET PO (03:58)
[2019-11-10] MEDS: Nystatin Powder 15gm Bottle 1 APPLIC TOPICAL ×2 (04:02→21:47)
[2019-11-10] MEDS: Acetaminophen 500 MG Tablet 1000 MG PO ×3 (04:59→21:46)
[2019-11-10 05:49] LABS: Absolute Neutrophil Count 3.8 X10^3/uL (2.0-7.7); Basophil# 0.05 X10^3/uL; Basophil% 0.9 % (0-1); Eosinophil# 0.25 X10^3/uL; Eosinophils% 4.5 % (0-5); Hematocrit 30.4 % (40-54); Hemoglobin 9.6 g/dL (13.0-16.5); Lymphocyte % 18.1 % (19-41); Mean Corp Hgb Conc 31.6 g/dL (32-36); Mean Corpuscular Hgb 28.1 pg (27.0-32.0); Mean Corpuscular Volume 88.9 fL (80-94); Monocyte# 0.43 X10^3/uL; Monocyte% 7.8 % (0-10); NRBC Flagged by Analyzer 0 % (0-5); Neutrophil # 3.78 X10^3/uL (2.7-7.7); Neutrophil % 68.2 % (47-70); Platelet Count 245 K/mm3 (150-450); RBC Distribution Width CV 13.7 % (11.6-14.6); RBC Distribution Width SD 44.2 fl (35.1-43.9); Red Blood Count 3.42 M/mm3 (4.6-6.2); White Blood Count 5.5 K/mm3 (4.4-11.0)
[2019-11-10 06:00] LABS: Erythrocyte Sedimentation Rate 26 mm/hr (0-20)
[2019-11-10 06:03] LABS: ALB/GLOB Ratio 0.8 RATIO (0.9-2.4); AST(SGOT) 12 U/L (15-37); Alanine Aminotransfer ALT/SGPT 27 U/L (16-61); Albumin, Serum 2.7 g/dL (3.2-5.0); Alkaline Phosphatase 51 U/L (45-117); Anion Gap 7 (5-15); BUN 12 mg/dL (7-18); BUN/Creat Ratio 16.6 RATIO (10-20); CRP 7.09 mg/L (0.0-3.0); Calcium,Total 8.6 mg/dL (8.5-10.1); Chloride 105 mmol/L (98-107); Creatinine, Serum 0.72 mg/dL (0.70-1.30); EST Glomerular Filtration Rate 110 mL/min (>60); Est Glom Filt Rate - Afr Amer 133 mL/min (>60); Estimated Creatinine Clearance 52.25 ml/min; Globulin 3.6 g/dL (2.2-4.2); Glucose 92 mg/dL (74-106); Potassium 3.3 mmol/L (3.5-5.1); Protein, Total 6.3 g/dL (6.4-8.2); Sodium Level 137 mmol/L (136-145)
[2019-11-10] MEDS: Cyanocobalamin 500 MCG Tablet PO (07:45)
[2019-11-10] MEDS: Multivitamins,Therapeutic Tablet 1 TABLET PO (07:45)
[2019-11-10] MEDS: Cefepime HCl 2 GM in 0.9% NS 100 ML Minibag Q12 IV ×2 (10:11→21:52)
--- NOTE | 2019-11-10 10:53 | CASEMGMT ---
Social Work IDT met with patient and via conference call for care plan meeting. Discussed patient's progress in therapy. Pt is CGA for supine to sit for bed mobility, sitting to supine is min assist for legs, min assist for transfers, ambulating 80 ft with FWW at CGA to min assist for steadying, and will attempt steps after isolation precautions are done. Pt is scheduled for out of room isolation 11/15 but pt has f/u appt for shyam removed 11/14 and will restart isolation. Pt is min assist for toilet transfers, total assist for toileting tasks, LE dressing, mod assist for LE bathing, min assist for UE dressing. ST working with pt on orientation, reason for admission, numerical processing with min-mod cues. Pt is having intermittent confusion, slow to process but has ability to double check work and self correct. Recommending assistance at DC. Activities will continue with 1:1 visits and enjoys the outdoors. Pt is on a regular diet, small portions, intake 75-100%, weight stable, good appetite. Pt is on IV ATBs two Q12 until 12/02. Explained insurance coverage with [employer] 11/09 and continued stay is not guaranteed. Pt goal is to return home. IDT recommending 18/11 care. prefers pt to return home as well. Emailed list of private duty [facility] agencies to to begin searching for assistance. Will continue to follow. RAQUEL Avelar
[2019-11-10 11:13] VITALS: PULSE 65; RESP 18; O2SAT 98
[2019-11-10] MEDS: Alteplase 2 MG/2 ML Vial IV (12:10)
--- NOTE | 2019-11-10 13:04 | NURSING ---
cath kane administered via purple lumen on Picc, good blood return. effective.
[2019-11-10 14:37] VITALS: BP 134/73; PULSE 99; RESP 15; TEMP 36.9; O2SAT 99
--- NOTE | 2019-11-10 14:52 | CHAPLAIN ---
Type of Pastoral Visit ___ Initial Visit _x__ Follow-up Visit ___ On-call Visit ___ General Patient Visit ___ Spiritual Assessment ___ Family Conference ___ Bereavement ___ Rapid Response ___ Code Blue ___ Other (describe below) Pastoral Care Referral From _x__ Patient ___ Family ___ Nurse ___ Physician ___ Pony Ride Operator ___ Manager Health ___ Other (describe below) Sacrament/Intervention _x__ Active listening ___ Anointing ___ Jew ___ Bereavement ___ Communion ___ Thu exploration ___ _x__ Life review ___ Prayer ___ Reconciliation ___ Sacrament of Sick _x__ Supportive presence ___ Wedding ___ Other (describe below) Pastoral Comments
[2019-11-10] MEDS: Menthol/Lanolin/Calamine/Znox 113 GM Tube 1 APPLIC TOPICAL (16:48)
[2019-11-10] MEDS: MELATONIN 3 MG TABLET 6 MG PO (21:47)
[2019-11-11] MEDS: 0.9% Saline Lock 10 ML Syringe IV ×3 (03:31→21:45)
[2019-11-11 05:27] VITALS: BP 153/75; PULSE 92; RESP 18; TEMP 36.8; O2SAT 96
[2019-11-11] MEDS: Polyethylene Glycol 3350 17 GM PACKET PO (05:29)
[2019-11-11] MEDS: Losartan Potassium 100 MG Tablet PO (05:30)
[2019-11-11] MEDS: Fluticasone 0.05% 1 SPRAY NASAL.SRY NASAL (05:30)
[2019-11-11] MEDS: amLODIPine 10 MG Tablet PO (05:30)
[2019-11-11] MEDS: guaiFENesin 600 MG Tablet PO ×2 (05:30→18:14)
[2019-11-11] MEDS: Senna/Docusate Sodium 1 Tablet PO ×2 (05:30→18:14)
[2019-11-11] MEDS: Acetaminophen 500 MG Tablet 1000 MG PO ×3 (05:30→21:42)
[2019-11-11] MEDS: Nystatin Powder 15gm Bottle 1 APPLIC TOPICAL ×2 (05:32→21:45)
[2019-11-11] MEDS: Menthol/Lanolin/Calamine/Znox 113 GM Tube 1 APPLIC TOPICAL ×2 (05:32→18:18)
[2019-11-11] MEDS: Multivitamins,Therapeutic Tablet 1 TABLET PO (07:46)
[2019-11-11] MEDS: Cyanocobalamin 500 MCG Tablet PO (07:46)
[2019-11-11 10:00] VITALS: PULSE 100; RESP 16; O2SAT 98
[2019-11-11] MEDS: Cefepime HCl 2 GM in 0.9% NS 100 ML Minibag Q12 IV ×2 (11:34→21:46)
[2019-11-11] MEDS: LORazepam 0.5 MG Tablet 0.25 MG PO (11:42)
[2019-11-11 14:42] VITALS: BP 129/71; PULSE 93; RESP 16; TEMP 36.9; O2SAT 95
[2019-11-11] MEDS: MELATONIN 3 MG TABLET 6 MG PO (21:43)
[2019-11-12] MEDS: 0.9% Saline Lock 10 ML Syringe IV ×4 (03:40→19:16)
[2019-11-12 05:38] VITALS: BP 142/75; PULSE 92; RESP 18; TEMP 37.1; O2SAT 96
[2019-11-12] MEDS: Losartan Potassium 100 MG Tablet PO (05:39)
[2019-11-12] MEDS: guaiFENesin 600 MG Tablet PO ×2 (05:39→17:44)
[2019-11-12] MEDS: Polyethylene Glycol 3350 17 GM PACKET PO (05:39)
[2019-11-12] MEDS: amLODIPine 10 MG Tablet PO (05:39)
[2019-11-12] MEDS: Senna/Docusate Sodium 1 Tablet PO ×2 (05:39→17:44)
[2019-11-12] MEDS: Acetaminophen 500 MG Tablet 1000 MG PO ×3 (05:39→21:41)
[2019-11-12] MEDS: Menthol/Lanolin/Calamine/Znox 113 GM Tube 1 APPLIC TOPICAL ×2 (05:44→17:45)
[2019-11-12] MEDS: Fluticasone 0.05% 1 SPRAY NASAL.SRY NASAL (05:44)
[2019-11-12] MEDS: Nystatin Powder 15gm Bottle 1 APPLIC TOPICAL ×2 (05:45→21:45)
[2019-11-12 06:06] LABS: Anion Gap 5 (5-15); BUN 13 mg/dL (7-18); BUN/Creat Ratio 19.2 RATIO (10-20); Calcium,Total 8.8 mg/dL (8.5-10.1); Chloride 106 mmol/L (98-107); Creatinine, Serum 0.68 mg/dL (0.70-1.30); EST Glomerular Filtration Rate 118 mL/min (>60); Est Glom Filt Rate - Afr Amer 143 mL/min (>60); Estimated Creatinine Clearance 52.25 ml/min; Glucose 91 mg/dL (74-106); Potassium 3.8 mmol/L (3.5-5.1); Sodium Level 136 mmol/L (136-145)
[2019-11-12] MEDS: Multivitamins,Therapeutic Tablet 1 TABLET PO (07:48)
[2019-11-12] MEDS: Cyanocobalamin 500 MCG Tablet PO (07:48)
[2019-11-12] MEDS: Cefepime HCl 2 GM in 0.9% NS 100 ML Minibag Q12 IV ×2 (10:26→21:42)
--- NOTE | 2019-11-12 10:57 | MDS.RN ---
Information for the mds was obtained from review of the clinical record, interview of resident, staff, and direct observation of resident's care.
[2019-11-12 13:58] VITALS: BP 157/99; PULSE 102; RESP 16; TEMP 37.3; O2SAT 98
--- NOTE | 2019-11-12 16:36 | NURSING ---
Contacted Pharmacist Ian, explained that both PICC lines for pt would not flush. Asked if it would be appropriate to administer Heparin flush, as pt received Heparin flush on 11/09/19. Pharmacist stated that would be fine. Pharmacy to send Heparin flush.
--- NOTE | 2019-11-12 17:54 | NURSING ---
Notified Dr. Hawthorne of patient PICC line leaking. Received order to remove PICC and order new PICC. hand engraver notified. They stated they will not be here until tomorrow.
[2019-11-12] MEDS: MELATONIN 3 MG TABLET 6 MG PO (21:42)
[2019-11-13 05:26] VITALS: BP 134/78; PULSE 90; RESP 16; TEMP 36.9; O2SAT 98
[2019-11-13] MEDS: Polyethylene Glycol 3350 17 GM PACKET PO (05:34)
[2019-11-13] MEDS: Acetaminophen 500 MG Tablet 1000 MG PO ×3 (05:34→21:25)
[2019-11-13] MEDS: guaiFENesin 600 MG Tablet PO ×2 (05:42→16:11)
[2019-11-13] MEDS: amLODIPine 10 MG Tablet PO (05:42)
[2019-11-13] MEDS: Losartan Potassium 100 MG Tablet PO (05:42)
[2019-11-13] MEDS: Fluticasone 0.05% 1 SPRAY NASAL.SRY NASAL (05:43)
[2019-11-13] MEDS: Senna/Docusate Sodium 1 Tablet PO ×2 (05:43→16:11)
[2019-11-13] MEDS: Nystatin Powder 15gm Bottle 1 APPLIC TOPICAL ×2 (05:46→21:25)
[2019-11-13] MEDS: Menthol/Lanolin/Calamine/Znox 113 GM Tube 1 APPLIC TOPICAL ×2 (05:46→16:11)
[2019-11-13] MEDS: Multivitamins,Therapeutic Tablet 1 TABLET PO (08:05)
[2019-11-13] MEDS: Cyanocobalamin 500 MCG Tablet PO (08:05)
[2019-11-13] MEDS: Cefepime HCl 2 GM in 0.9% NS 100 ML Minibag Q12 IV ×2 (09:20→21:18)
--- NOTE | 2019-11-13 12:40 | NURSING ---
Picc removed from LT upper arm 45 cm, pt resting flat in bed. petroleum drsg placed to site.
[2019-11-13 13:20] VITALS: PULSE 65; RESP 16; O2SAT 95
[2019-11-13 15:17] VITALS: BP 147/71; PULSE 92; RESP 18; TEMP 36.7; O2SAT 98
[2019-11-13] MEDS: 0.9% Saline Lock 10 ML Syringe IV ×2 (16:12→21:19)
[2019-11-13] MEDS: MELATONIN 3 MG TABLET 6 MG PO (21:24)
[2019-11-14 05:33] VITALS: BP 133/73; PULSE 97; RESP 16; TEMP 36.6; O2SAT 95
[2019-11-14] MEDS: Menthol/Lanolin/Calamine/Znox 113 GM Tube 1 APPLIC TOPICAL ×2 (05:34→16:59)
[2019-11-14] MEDS: Fluticasone 0.05% 1 SPRAY NASAL.SRY NASAL (05:35)
[2019-11-14] MEDS: Polyethylene Glycol 3350 17 GM PACKET PO (05:36)
[2019-11-14] MEDS: Senna/Docusate Sodium 1 Tablet PO (05:36)
[2019-11-14] MEDS: Nystatin Powder 15gm Bottle 1 APPLIC TOPICAL ×2 (05:36→20:49)
[2019-11-14] MEDS: amLODIPine 10 MG Tablet PO (05:36)
[2019-11-14] MEDS: Acetaminophen 500 MG Tablet 1000 MG PO ×3 (05:36→20:48)
[2019-11-14] MEDS: guaiFENesin 600 MG Tablet PO ×2 (05:36→16:58)
[2019-11-14] MEDS: Losartan Potassium 100 MG Tablet PO (05:36)
[2019-11-14] MEDS: Multivitamins,Therapeutic Tablet 1 TABLET PO (07:45)
[2019-11-14] MEDS: Cyanocobalamin 500 MCG Tablet PO (07:45)
[2019-11-14] MEDS: Cefepime HCl 2 GM in 0.9% NS 100 ML Minibag Q12 IV ×2 (09:01→20:47)
[2019-11-14] MEDS: 0.9% Saline Lock 10 ML Syringe IV ×3 (09:02→20:51)
[2019-11-14 14:32] VITALS: BP 115/58; PULSE 93; RESP 16; TEMP 37.2; O2SAT 97
--- NOTE | 2019-11-14 18:41 | NURSING ---
pt tired of sitting, assisted pt walking from chair to door w/back brace & walker several times in room. Pt very appreciative.
[2019-11-14] MEDS: MELATONIN 3 MG TABLET 6 MG PO (20:48)
[2019-11-15 03:33] LABS: Absolute Lymphocyte Count 1.16 X10^3/uL (0.83-4.51); Absolute Neutrophil Count 3.3 X10^3/uL (2.0-7.7); Basophil# 0.06 X10^3/uL; Basophil% 1.1 % (0-1); Eosinophil# 0.43 X10^3/uL; Eosinophils% 7.9 % (0-5); Hemoglobin 10.4 g/dL (13.0-16.5); Lymphocyte # 1.16 X10^3/ul (4.0); Lymphocyte % 21.4 % (19-41); Mean Corp Hgb Conc 32.5 g/dL (32-36); Mean Corpuscular Hgb 28.1 pg (27.0-32.0); Mean Corpuscular Volume 86.5 fL (80-94); Monocyte# 0.46 X10^3/uL; Monocyte% 8.5 % (0-10); NRBC Flagged by Analyzer 0 % (0-5); Neutrophil # 3.27 X10^3/uL (2.7-7.7); Neutrophil % 60.5 % (47-70); Platelet Count 240 K/mm3 (150-450); RBC Distribution Width CV 13.4 % (11.6-14.6); White Blood Count 5.4 K/mm3 (4.4-11.0)
[2019-11-15 03:39] LABS: Erythrocyte Sedimentation Rate 33 mm/hr (0-20)
[2019-11-15 03:57] LABS: ALB/GLOB Ratio 0.9 RATIO (0.9-2.4); AST(SGOT) 16 U/L (15-37); Alanine Aminotransfer ALT/SGPT 33 U/L (16-61); Alkaline Phosphatase 56 U/L (45-117); Anion Gap 5 (5-15); BUN 15 mg/dL (7-18); BUN/Creat Ratio 17.5 RATIO (10-20); Chloride 106 mmol/L (98-107); Creatinine, Serum 0.86 mg/dL (0.70-1.30); EST Glomerular Filtration Rate 90 mL/min (>60); Est Glom Filt Rate - Afr Amer 109 mL/min (>60); Estimated Creatinine Clearance 60.76 ml/min; Globulin 3.5 g/dL (2.2-4.2); Glucose 91 mg/dL (74-106); Potassium 3.9 mmol/L (3.5-5.1); Protein, Total 6.5 g/dL (6.4-8.2); Sodium Level 135 mmol/L (136-145)
[2019-11-15 04:21] LABS: Vancomycin, Trough Level 22.1 ug/mL (5.0-15.0)
[2019-11-15 04:30] VITALS: BP 128/70; PULSE 68; RESP 16; TEMP 36.8; O2SAT 98
[2019-11-15] MEDS: Acetaminophen 500 MG Tablet 1000 MG PO ×3 (05:20→21:30)
[2019-11-15] MEDS: Menthol/Lanolin/Calamine/Znox 113 GM Tube 1 APPLIC TOPICAL ×2 (05:20→17:43)
[2019-11-15] MEDS: Polyethylene Glycol 3350 17 GM PACKET PO (05:20)
[2019-11-15] MEDS: Nystatin Powder 15gm Bottle 1 APPLIC TOPICAL ×2 (05:21→21:31)
[2019-11-15] MEDS: guaiFENesin 600 MG Tablet PO ×2 (05:21→17:43)
[2019-11-15] MEDS: amLODIPine 10 MG Tablet PO (05:21)
[2019-11-15] MEDS: Senna/Docusate Sodium 1 Tablet PO ×2 (05:21→17:43)
[2019-11-15] MEDS: Losartan Potassium 100 MG Tablet PO (05:23)
[2019-11-15] MEDS: Fluticasone 0.05% 1 SPRAY NASAL.SRY NASAL (05:24)
[2019-11-15] MEDS: Cyanocobalamin 500 MCG Tablet PO (07:58)
[2019-11-15] MEDS: Multivitamins,Therapeutic Tablet 1 TABLET PO (07:58)
[2019-11-15 10:00] VITALS: PULSE 75; RESP 16; O2SAT 99
[2019-11-15] MEDS: Cefepime HCl 2 GM in 0.9% NS 100 ML Minibag Q12 IV ×2 (12:57→21:36)
[2019-11-15] MEDS: 0.9% Saline Lock 10 ML Syringe IV ×3 (12:58→21:36)
--- NOTE | 2019-11-15 13:43 | NURSING ---
Patient returned from Dr. newton. Nilam removed, pt to continue with physical therapy and antibiotics per order. No creams or ointments on incision site, pt is not to submerge in water for 10 more days. No lighting more than 30-40 lbs. Patient to discharge from facility when he passes therapy and cleared by facility. Continue to wear brace.
--- NOTE | 2019-11-15 13:55 | NURSING ---
Dr. Blevins's office called requesting another Vanco trough to be completed tomorrow at 0330.
[2019-11-15 14:07] VITALS: BP 132/72; PULSE 90; RESP 14; TEMP 36.8; O2SAT 98
[2019-11-15] MEDS: MELATONIN 3 MG TABLET 6 MG PO (21:30)
[2019-11-16 04:41] LABS: Vancomycin, Trough Level 23.3 ug/mL (5.0-15.0)
[2019-11-16] MEDS: Menthol/Lanolin/Calamine/Znox 113 GM Tube 1 APPLIC TOPICAL ×2 (05:31→14:09)
[2019-11-16] MEDS: Fluticasone 0.05% 1 SPRAY NASAL.SRY NASAL (05:32)
[2019-11-16] MEDS: guaiFENesin 600 MG Tablet PO ×2 (05:33→17:18)
[2019-11-16] MEDS: Senna/Docusate Sodium 1 Tablet PO ×2 (05:33→17:19)
[2019-11-16] MEDS: amLODIPine 10 MG Tablet PO (05:33)
[2019-11-16] MEDS: Losartan Potassium 100 MG Tablet PO (05:33)
[2019-11-16] MEDS: Polyethylene Glycol 3350 17 GM PACKET PO (05:33)
[2019-11-16] MEDS: Acetaminophen 500 MG Tablet 1000 MG PO ×3 (05:34→21:55)
[2019-11-16 05:36] VITALS: BP 147/78; PULSE 100; RESP 18; TEMP 36.8; O2SAT 96
[2019-11-16] MEDS: Nystatin Powder 15gm Bottle 1 APPLIC TOPICAL ×2 (05:36→21:59)
[2019-11-16] MEDS: Multivitamins,Therapeutic Tablet 1 TABLET PO (09:21)
[2019-11-16] MEDS: Cyanocobalamin 500 MCG Tablet PO (09:21)
[2019-11-16] MEDS: Cefepime HCl 2 GM in 0.9% NS 100 ML Minibag Q12 IV ×2 (10:30→21:51)
[2019-11-16] MEDS: 0.9% Saline Lock 10 ML Syringe IV ×3 (10:31→21:58)
--- NOTE | 2019-11-16 10:49 | CASEMGMT ---
Social Work Spoke with to follow up on resources. stated she had not contacted any C aides yet as she has been talking to the pt and feels he can come home. Explained that is the goal but he will need additional assistance at NH and encouraged her to start contacting agencies. NRD 11/16 and continued stay is not guaranteed. Will continue to follow. Kim Wasserman, [employer] BATH OPERATOR
--- NOTE | 2019-11-16 12:11 | NURSING ---
repeat vanc faxed to dr. ziegler office with note to please call since vanc dose not adjusted for high trough x2.
--- NOTE | 2019-11-16 13:31 | NURSING ---
Vancomycin trough 23.3. today. Called Dr Conti office and she gave orders to decrease Vancomycin to 1 gram Q 12hrs and redraw Vancomcyin trough again on Friday.
[2019-11-16 14:56] VITALS: BP 109/71; PULSE 108; RESP 18; TEMP 36.8; O2SAT 98
[2019-11-16] MEDS: Vancomycin IV 1,000 MG/200 ML BAG 200 MG IV (17:18)
[2019-11-16] MEDS: MELATONIN 3 MG TABLET 6 MG PO (21:55)
[2019-11-17 04:11] VITALS: BP 140/74; PULSE 99; RESP 18; TEMP 37.1; O2SAT 96
[2019-11-17] MEDS: Vancomycin IV 1,000 MG/200 ML BAG 200 MG IV ×2 (04:13→15:50)
[2019-11-17] MEDS: 0.9% Saline Lock 10 ML Syringe IV ×4 (04:17→22:11)
[2019-11-17] MEDS: Nystatin Powder 15gm Bottle 1 APPLIC TOPICAL ×2 (04:17→22:29)
[2019-11-17] MEDS: Menthol/Lanolin/Calamine/Znox 113 GM Tube 1 APPLIC TOPICAL ×2 (04:18→17:51)
[2019-11-17] MEDS: Fluticasone 0.05% 1 SPRAY NASAL.SRY NASAL (05:40)
[2019-11-17] MEDS: guaiFENesin 600 MG Tablet PO ×2 (05:41→17:51)
[2019-11-17] MEDS: Losartan Potassium 100 MG Tablet PO (05:41)
[2019-11-17] MEDS: Senna/Docusate Sodium 1 Tablet PO ×2 (05:41→17:51)
[2019-11-17] MEDS: Acetaminophen 500 MG Tablet 1000 MG PO ×3 (05:41→22:11)
[2019-11-17] MEDS: amLODIPine 10 MG Tablet PO (05:42)
[2019-11-17 05:44] LABS: Absolute Lymphocyte Count 1.16 X10^3/uL (0.83-4.51); Absolute Neutrophil Count 4.5 X10^3/uL (2.0-7.7); Basophil# 0.05 X10^3/uL; Basophil% 0.7 % (0-1); Eosinophil# 0.49 X10^3/uL; Eosinophils% 7.2 % (0-5); Hemoglobin 9.8 g/dL (13.0-16.5); Lymphocyte # 1.16 X10^3/ul (4.0); Lymphocyte % 17.1 % (19-41); Mean Corp Hgb Conc 31.6 g/dL (32-36); Mean Corpuscular Hgb 27.3 pg (27.0-32.0); Mean Corpuscular Volume 86.4 fL (80-94); Mean Platelet Vol. 9.1 fl (6.2-12.0); Monocyte# 0.54 X10^3/uL; NRBC Flagged by Analyzer 0 % (0-5); Neutrophil % 66.4 % (47-70); Platelet Count 240 K/mm3 (150-450); RBC Distribution Width CV 13.3 % (11.6-14.6); Red Blood Count 3.59 M/mm3 (4.6-6.2); White Blood Count 6.8 K/mm3 (4.4-11.0)
[2019-11-17 06:43] LABS: ALB/GLOB Ratio 0.8 RATIO (0.9-2.4); AST(SGOT) 15 U/L (15-37); Alanine Aminotransfer ALT/SGPT 29 U/L (16-61); Albumin, Serum 2.8 g/dL (3.2-5.0); Alkaline Phosphatase 51 U/L (45-117); Anion Gap 4 (5-15); BUN 15 mg/dL (7-18); BUN/Creat Ratio 17.6 RATIO (10-20); Calcium,Total 8.6 mg/dL (8.5-10.1); Chloride 104 mmol/L (98-107); Creatinine, Serum 0.85 mg/dL (0.70-1.30); EST Glomerular Filtration Rate 91 mL/min (>60); Est Glom Filt Rate - Afr Amer 110 mL/min (>60); Estimated Creatinine Clearance 61.47 ml/min; Globulin 3.4 g/dL (2.2-4.2); Glucose 109 mg/dL (74-106); Potassium 3.9 mmol/L (3.5-5.1); Protein, Total 6.2 g/dL (6.4-8.2); Sodium Level 135 mmol/L (136-145)
[2019-11-17 07:22] LABS: Erythrocyte Sedimentation Rate 23 mm/hr (0-20)
[2019-11-17] MEDS: Cyanocobalamin 500 MCG Tablet PO (07:33)
[2019-11-17] MEDS: Multivitamins,Therapeutic Tablet 1 TABLET PO (07:33)
[2019-11-17] MEDS: Cefepime HCl 2 GM in 0.9% NS 100 ML Minibag Q12 IV ×2 (09:55→22:10)
[2019-11-17 10:00] VITALS: PULSE 109; RESP 16; O2SAT 99
[2019-11-17 14:07] VITALS: BP 121/66; PULSE 100; RESP 18; TEMP 37; O2SAT 96
[2019-11-17] MEDS: MELATONIN 3 MG TABLET 6 MG PO (22:11)
[2019-11-18 00:54] VITALS: BP 135/68; PULSE 90; RESP 20; TEMP 37.5; O2SAT 95
[2019-11-18] MEDS: Vancomycin IV 1,000 MG/200 ML BAG 200 MG IV ×2 (04:14→15:42)
[2019-11-18] MEDS: Senna/Docusate Sodium 1 Tablet PO ×2 (06:22→17:10)
[2019-11-18] MEDS: guaiFENesin 600 MG Tablet PO ×2 (06:23→17:10)
[2019-11-18] MEDS: Fluticasone 0.05% 1 SPRAY NASAL.SRY NASAL (06:23)
[2019-11-18 06:25] VITALS: BP 125/67; PULSE 97
[2019-11-18] MEDS: 0.9% Saline Lock 10 ML Syringe IV ×5 (06:25→21:44)
[2019-11-18] MEDS: Losartan Potassium 100 MG Tablet PO (06:28)
[2019-11-18] MEDS: amLODIPine 10 MG Tablet PO (06:28)
[2019-11-18] MEDS: Menthol/Lanolin/Calamine/Znox 113 GM Tube 1 APPLIC TOPICAL ×2 (06:28→17:10)
[2019-11-18] MEDS: Nystatin Powder 15gm Bottle 1 APPLIC TOPICAL ×2 (06:29→21:41)
[2019-11-18] MEDS: Acetaminophen 500 MG Tablet 1000 MG PO ×3 (06:30→21:42)
[2019-11-18] MEDS: Cyanocobalamin 500 MCG Tablet PO (07:47)
[2019-11-18] MEDS: Multivitamins,Therapeutic Tablet 1 TABLET PO (07:47)
[2019-11-18] MEDS: Cefepime HCl 2 GM in 0.9% NS 100 ML Minibag Q12 IV ×2 (10:02→21:39)
[2019-11-18 14:50] VITALS: BP 116/54; PULSE 86; RESP 18; TEMP 36.4; O2SAT 96
[2019-11-18] MEDS: Clotrimazole/Betamethasone 1 Tube 1 APPLIC TOPICAL (21:39)
[2019-11-18] MEDS: MELATONIN 3 MG TABLET 6 MG PO (21:42)
[2019-11-19] MEDS: 0.9% Saline Lock 10 ML Syringe IV ×4 (04:02→21:18)
[2019-11-19] MEDS: Vancomycin IV 1,000 MG/200 ML BAG 200 MG IV ×2 (04:02→16:15)
[2019-11-19 04:09] VITALS: BP 116/62; PULSE 90; RESP 15; TEMP 36.6; O2SAT 99
[2019-11-19] MEDS: guaiFENesin 600 MG Tablet PO ×2 (05:21→17:34)
[2019-11-19] MEDS: Losartan Potassium 100 MG Tablet PO (05:21)
[2019-11-19] MEDS: Acetaminophen 500 MG Tablet 1000 MG PO ×3 (05:21→21:22)
[2019-11-19] MEDS: Polyethylene Glycol 3350 17 GM PACKET PO (05:21)
[2019-11-19] MEDS: Senna/Docusate Sodium 1 Tablet PO ×2 (05:21→17:34)
[2019-11-19] MEDS: amLODIPine 10 MG Tablet PO (05:21)
[2019-11-19] MEDS: Clotrimazole/Betamethasone 1 Tube 1 APPLIC TOPICAL ×2 (05:22→21:25)
[2019-11-19] MEDS: Menthol/Lanolin/Calamine/Znox 113 GM Tube 1 APPLIC TOPICAL ×2 (05:22→17:34)
[2019-11-19] MEDS: Fluticasone 0.05% 1 SPRAY NASAL.SRY NASAL (05:23)
[2019-11-19] MEDS: Nystatin Powder 15gm Bottle 1 APPLIC TOPICAL ×2 (05:23→21:24)
[2019-11-19] MEDS: Cyanocobalamin 500 MCG Tablet PO (07:27)
[2019-11-19] MEDS: Multivitamins,Therapeutic Tablet 1 TABLET PO (07:27)
[2019-11-19] MEDS: Cefepime HCl 2 GM in 0.9% NS 100 ML Minibag Q12 IV ×2 (09:27→21:20)
[2019-11-19 14:06] VITALS: BP 139/67; PULSE 100; RESP 20; TEMP 37; O2SAT 98
[2019-11-19] MEDS: MELATONIN 3 MG TABLET 6 MG PO (21:23)
[2019-11-20] MEDS: Vancomycin IV 1,000 MG/200 ML BAG 200 MG IV ×2 (03:21→15:54)
[2019-11-20] MEDS: Fluticasone 0.05% 1 SPRAY NASAL.SRY NASAL (04:47)
[2019-11-20] MEDS: Polyethylene Glycol 3350 17 GM PACKET PO (04:47)
[2019-11-20] MEDS: Losartan Potassium 100 MG Tablet PO (04:48)
[2019-11-20] MEDS: amLODIPine 10 MG Tablet PO (04:48)
[2019-11-20] MEDS: Senna/Docusate Sodium 1 Tablet PO ×2 (04:48→17:10)
[2019-11-20] MEDS: guaiFENesin 600 MG Tablet PO ×2 (04:49→17:10)
[2019-11-20] MEDS: Acetaminophen 500 MG Tablet 1000 MG PO ×3 (04:49→21:03)
[2019-11-20] MEDS: Clotrimazole/Betamethasone 1 Tube 1 APPLIC TOPICAL ×2 (04:50→21:04)
[2019-11-20] MEDS: Nystatin Powder 15gm Bottle 1 APPLIC TOPICAL ×2 (04:53→21:03)
[2019-11-20] MEDS: Menthol/Lanolin/Calamine/Znox 113 GM Tube 1 APPLIC TOPICAL ×2 (04:53→17:11)
[2019-11-20 04:54] VITALS: BP 118/70; PULSE 91; RESP 16; TEMP 36.8; O2SAT 96
[2019-11-20] MEDS: Cyanocobalamin 500 MCG Tablet PO (07:45)
[2019-11-20] MEDS: Multivitamins,Therapeutic Tablet 1 TABLET PO (07:45)
[2019-11-20 09:46] VITALS: PULSE 75; RESP 16; O2SAT 97
[2019-11-20] MEDS: Cefepime HCl 2 GM in 0.9% NS 100 ML Minibag Q12 IV ×2 (10:43→21:02)
[2019-11-20] MEDS: 0.9% Saline Lock 10 ML Syringe IV ×2 (10:48→21:02)
[2019-11-20 13:51] VITALS: BP 115/61; PULSE 98; RESP 16; TEMP 37.5; O2SAT 97
[2019-11-20] MEDS: MELATONIN 3 MG TABLET 6 MG PO (21:03)
[2019-11-21] MEDS: Vancomycin IV 1,000 MG/200 ML BAG 200 MG IV ×2 (04:17→15:30)
[2019-11-21] MEDS: 0.9% Saline Lock 10 ML Syringe IV ×4 (04:17→21:53)
[2019-11-21] MEDS: Losartan Potassium 100 MG Tablet PO (05:09)
[2019-11-21] MEDS: Senna/Docusate Sodium 1 Tablet PO ×2 (05:09→17:08)
[2019-11-21] MEDS: Acetaminophen 500 MG Tablet 1000 MG PO ×3 (05:09→21:44)
[2019-11-21] MEDS: amLODIPine 10 MG Tablet PO (05:09)
[2019-11-21] MEDS: guaiFENesin 600 MG Tablet PO ×2 (05:09→17:08)
[2019-11-21] MEDS: Clotrimazole/Betamethasone 1 Tube 1 APPLIC TOPICAL ×2 (05:10→21:46)
[2019-11-21] MEDS: Nystatin Powder 15gm Bottle 1 APPLIC TOPICAL ×2 (05:11→21:46)
[2019-11-21] MEDS: Menthol/Lanolin/Calamine/Znox 113 GM Tube 1 APPLIC TOPICAL ×2 (05:12→17:08)
[2019-11-21] MEDS: Fluticasone 0.05% 1 SPRAY NASAL.SRY NASAL (05:12)
[2019-11-21 05:14] VITALS: BP 127/62; PULSE 90; RESP 18; TEMP 37; O2SAT 98
[2019-11-21] MEDS: Cyanocobalamin 500 MCG Tablet PO (07:34)
[2019-11-21] MEDS: Multivitamins,Therapeutic Tablet 1 TABLET PO (07:34)
[2019-11-21] MEDS: Cefepime HCl 2 GM in 0.9% NS 100 ML Minibag Q12 IV ×2 (09:32→21:54)
[2019-11-21 14:20] VITALS: BP 128/71; PULSE 95; RESP 16; TEMP 36.5; O2SAT 98
--- NOTE | 2019-11-21 20:31 | NURSING ---
Pt walked in room back and forth from window to bed 8 times for exercise before going to BR.
[2019-11-21] MEDS: MELATONIN 3 MG TABLET 6 MG PO (21:45)
[2019-11-22] MEDS: Vancomycin IV 1,000 MG/200 ML BAG 200 MG IV ×2 (03:15→16:39)
[2019-11-22 03:45] LABS: Absolute Lymphocyte Count 1.08 X10^3/uL (0.83-4.51); Absolute Neutrophil Count 3.7 X10^3/uL (2.0-7.7); Basophil% 1.7 % (0-1); Eosinophil# 0.44 X10^3/uL; Eosinophils% 7.5 % (0-5); Hemoglobin 9.8 g/dL (13.0-16.5); Lymphocyte # 1.08 X10^3/ul (4.0); Lymphocyte % 18.4 % (19-41); Mean Corp Hgb Conc 32.7 g/dL (32-36); Mean Corpuscular Hgb 27.8 pg (27.0-32.0); Mean Corpuscular Volume 85.2 fL (80-94); Mean Platelet Vol. 8.7 fl (6.2-12.0); Monocyte# 0.55 X10^3/uL; Monocyte% 9.4 % (0-10); NRBC Flagged by Analyzer 0 % (0-5); Neutrophil # 3.66 X10^3/uL (2.7-7.7); Neutrophil % 62.1 % (47-70); Platelet Count 298 K/mm3 (150-450); RBC Distribution Width CV 13.4 % (11.6-14.6); RBC Distribution Width SD 41.8 fl (35.1-43.9); Red Blood Count 3.52 M/mm3 (4.6-6.2); White Blood Count 5.9 K/mm3 (4.4-11.0)
[2019-11-22 04:00] VITALS: BP 146/86; PULSE 97; RESP 18; TEMP 36.9; O2SAT 97
[2019-11-22 04:04] LABS: Erythrocyte Sedimentation Rate 44 mm/hr (0-20)
[2019-11-22 04:06] LABS: ALB/GLOB Ratio 0.8 RATIO (0.9-2.4); AST(SGOT) 14 U/L (15-37); Alanine Aminotransfer ALT/SGPT 29 U/L (16-61); Albumin, Serum 2.9 g/dL (3.2-5.0); Alkaline Phosphatase 50 U/L (45-117); Anion Gap 6 (5-15); BUN 16 mg/dL (7-18); BUN/Creat Ratio 20.5 RATIO (10-20); CRP 8.67 mg/L (0.0-3.0); Chloride 105 mmol/L (98-107); Creatinine, Serum 0.78 mg/dL (0.70-1.30); EST Glomerular Filtration Rate 100 mL/min (>60); Est Glom Filt Rate - Afr Amer 121 mL/min (>60); Estimated Creatinine Clearance 52.25 ml/min; Globulin 3.8 g/dL (2.2-4.2); Glucose 95 mg/dL (74-106); Potassium 3.9 mmol/L (3.5-5.1); Protein, Total 6.7 g/dL (6.4-8.2); Sodium Level 135 mmol/L (136-145); Vancomycin, Trough Level 31.6 ug/mL (5.0-15.0)
[2019-11-22] MEDS: Polyethylene Glycol 3350 17 GM PACKET PO (05:40)
[2019-11-22] MEDS: Acetaminophen 500 MG Tablet 1000 MG PO ×3 (05:40→21:26)
[2019-11-22] MEDS: guaiFENesin 600 MG Tablet PO ×2 (05:41→17:36)
[2019-11-22] MEDS: Losartan Potassium 100 MG Tablet PO (05:41)
[2019-11-22] MEDS: Senna/Docusate Sodium 1 Tablet PO ×2 (05:41→17:36)
[2019-11-22] MEDS: amLODIPine 10 MG Tablet PO (05:41)
[2019-11-22] MEDS: Clotrimazole/Betamethasone 1 Tube 1 APPLIC TOPICAL ×2 (05:44→21:30)
[2019-11-22] MEDS: Menthol/Lanolin/Calamine/Znox 113 GM Tube 1 APPLIC TOPICAL ×2 (05:45→17:36)
[2019-11-22] MEDS: Nystatin Powder 15gm Bottle 1 APPLIC TOPICAL ×2 (05:46→21:27)
[2019-11-22] MEDS: Multivitamins,Therapeutic Tablet 1 TABLET PO (07:46)
[2019-11-22] MEDS: Cyanocobalamin 500 MCG Tablet PO (07:46)
[2019-11-22] MEDS: Cefepime HCl 2 GM in 0.9% NS 100 ML Minibag Q12 IV ×2 (09:44→21:24)
[2019-11-22] MEDS: 0.9% Saline Lock 10 ML Syringe IV ×4 (09:47→21:21)
[2019-11-22 10:20] VITALS: PULSE 96; RESP 18; O2SAT 97
[2019-11-22 14:24] VITALS: BP 128/62; PULSE 103; RESP 18; TEMP 36.9; O2SAT 98
[2019-11-22 16:28] LABS: Vancomycin, Trough Level 20.2 ug/mL (5.0-15.0)
--- NOTE | 2019-11-22 16:46 | NURSING ---
notified Dr Glover office regarding morning trough elevated d/t IV Vanc started before lab draw. wanted new trough drawn at 1530 before next vanc dose. attempted to call and update Dr Avila of 1530 level. no answer, office closed. spoke with Edd in pharmacy and he stated go ahead and hang Vanc dose as ordered.
[2019-11-22] MEDS: MELATONIN 3 MG TABLET 6 MG PO (21:26)
[2019-11-23] MEDS: Vancomycin IV 1,000 MG/200 ML BAG 200 MG IV ×2 (04:12→15:57)
[2019-11-23] MEDS: 0.9% Saline Lock 10 ML Syringe IV ×4 (04:12→21:16)
[2019-11-23 04:16] VITALS: BP 130/62; PULSE 90; RESP 17; TEMP 36.6; O2SAT 98
[2019-11-23] MEDS: Polyethylene Glycol 3350 17 GM PACKET PO (05:35)
[2019-11-23] MEDS: Losartan Potassium 100 MG Tablet PO (05:35)
[2019-11-23] MEDS: guaiFENesin 600 MG Tablet PO ×2 (05:35→17:23)
[2019-11-23] MEDS: Fluticasone 0.05% 1 SPRAY NASAL.SRY NASAL (05:35)
[2019-11-23] MEDS: Acetaminophen 500 MG Tablet 1000 MG PO ×3 (05:35→21:15)
[2019-11-23] MEDS: Senna/Docusate Sodium 1 Tablet PO ×2 (05:35→17:23)
[2019-11-23] MEDS: amLODIPine 10 MG Tablet PO (05:35)
[2019-11-23] MEDS: Menthol/Lanolin/Calamine/Znox 113 GM Tube 1 APPLIC TOPICAL ×2 (05:39→17:25)
[2019-11-23] MEDS: Nystatin Powder 15gm Bottle 1 APPLIC TOPICAL ×2 (05:39→21:25)
[2019-11-23] MEDS: Clotrimazole/Betamethasone 1 Tube 1 APPLIC TOPICAL ×2 (05:39→21:28)
[2019-11-23] MEDS: Multivitamins,Therapeutic Tablet 1 TABLET PO (07:46)
[2019-11-23] MEDS: Cyanocobalamin 500 MCG Tablet PO (07:46)
[2019-11-23] MEDS: Cefepime HCl 2 GM in 0.9% NS 100 ML Minibag Q12 IV ×2 (10:24→21:16)
--- NOTE | 2019-11-23 14:13 | PCA ---
this patient told therapy that this pcu snapped at him because he transferred himself from the toilet . this pcu has NOT BEEN 7-7 in this patient room today 11-23-19.
[2019-11-23 14:20] VITALS: BP 125/57; PULSE 106; RESP 16; TEMP 37.1; O2SAT 98
[2019-11-23] MEDS: MELATONIN 3 MG TABLET 6 MG PO (21:16)
[2019-11-23 21:56] VITALS: O2SAT 98
[2019-11-24] MEDS: 0.9% Saline Lock 10 ML Syringe IV ×4 (04:15→21:56)
[2019-11-24] MEDS: Vancomycin IV 1,000 MG/200 ML BAG 200 MG IV ×2 (04:16→16:01)
[2019-11-24 05:34] LABS: Absolute Lymphocyte Count 1.25 X10^3/uL (0.83-4.51); Basophil# 0.11 X10^3/uL; Basophil% 1.7 % (0-1); Eosinophil# 0.39 X10^3/uL; Hematocrit 31.4 % (40-54); Hemoglobin 9.9 g/dL (13.0-16.5); Lymphocyte # 1.25 X10^3/ul (4.0); Lymphocyte % 19.4 % (19-41); Mean Corp Hgb Conc 31.5 g/dL (32-36); Mean Corpuscular Hgb 27.2 pg (27.0-32.0); Mean Corpuscular Volume 86.3 fL (80-94); Mean Platelet Vol. 8.5 fl (6.2-12.0); Monocyte# 0.61 X10^3/uL; Monocyte% 9.5 % (0-10); NRBC Flagged by Analyzer 0 % (0-5); Neutrophil # 4.03 X10^3/uL (2.7-7.7); Neutrophil % 62.5 % (47-70); Platelet Count 307 K/mm3 (150-450); RBC Distribution Width CV 13.6 % (11.6-14.6); RBC Distribution Width SD 42.7 fl (35.1-43.9); Red Blood Count 3.64 M/mm3 (4.6-6.2); White Blood Count 6.5 K/mm3 (4.4-11.0)
[2019-11-24] MEDS: Acetaminophen 500 MG Tablet 1000 MG PO ×3 (05:34→21:48)
[2019-11-24] MEDS: amLODIPine 10 MG Tablet PO (05:34)
[2019-11-24] MEDS: Senna/Docusate Sodium 1 Tablet PO ×2 (05:34→16:11)
[2019-11-24] MEDS: Losartan Potassium 100 MG Tablet PO (05:34)
[2019-11-24] MEDS: guaiFENesin 600 MG Tablet PO ×2 (05:34→16:11)
[2019-11-24] MEDS: Polyethylene Glycol 3350 17 GM PACKET PO (05:34)
[2019-11-24] MEDS: Menthol/Lanolin/Calamine/Znox 113 GM Tube 1 APPLIC TOPICAL ×2 (05:35→16:11)
[2019-11-24] MEDS: Clotrimazole/Betamethasone 1 Tube 1 APPLIC TOPICAL ×2 (05:35→21:51)
[2019-11-24] MEDS: Fluticasone 0.05% 1 SPRAY NASAL.SRY NASAL (05:35)
[2019-11-24] MEDS: Nystatin Powder 15gm Bottle 1 APPLIC TOPICAL ×2 (05:38→21:50)
[2019-11-24 05:39] VITALS: BP 119/62; PULSE 69; RESP 18; TEMP 36.6; O2SAT 97
[2019-11-24 05:46] LABS: Erythrocyte Sedimentation Rate 34 mm/hr (0-20)
--- NOTE | 2019-11-24 05:54 | NURSING ---
Pt requesting to stand up beside bed d/t his back being uncomfortable. Assisted x2 to stand by the bed. Pt walked around room a couple of times. Pt thanked staff. was assisted back to bed. PA on and bed in lowest position.
[2019-11-24 05:57] LABS: ALB/GLOB Ratio 0.9 RATIO (0.9-2.4); AST(SGOT) 13 U/L (15-37); Alanine Aminotransfer ALT/SGPT 24 U/L (16-61); Albumin, Serum 3.1 g/dL (3.2-5.0); Alkaline Phosphatase 53 U/L (45-117); Anion Gap 5 (5-15); BUN 17 mg/dL (7-18); BUN/Creat Ratio 19.6 RATIO (10-20); CRP 5.96 mg/L (0.0-3.0); Calcium,Total 9.4 mg/dL (8.5-10.1); Chloride 105 mmol/L (98-107); Creatinine, Serum 0.87 mg/dL (0.70-1.30); EST Glomerular Filtration Rate 89 mL/min (>60); Est Glom Filt Rate - Afr Amer 108 mL/min (>60); Estimated Creatinine Clearance 60.06 ml/min; Globulin 3.6 g/dL (2.2-4.2); Glucose 112 mg/dL (74-106); Potassium 4.2 mmol/L (3.5-5.1); Protein, Total 6.7 g/dL (6.4-8.2); Sodium Level 135 mmol/L (136-145)
[2019-11-24] MEDS: Multivitamins,Therapeutic Tablet 1 TABLET PO (07:47)
[2019-11-24] MEDS: Cyanocobalamin 500 MCG Tablet PO (07:47)
[2019-11-24 07:50] VITALS: PULSE 93; RESP 18; O2SAT 95
[2019-11-24] MEDS: Cefepime HCl 2 GM in 0.9% NS 100 ML Minibag Q12 IV ×2 (09:21→22:00)
[2019-11-24 13:48] VITALS: BP 103/59; PULSE 98; RESP 16; TEMP 37.4; O2SAT 98
--- NOTE | 2019-11-24 15:10 | NURSING ---
Dr Jimenez called and able to bend & twist but be sure to wear back brace.
[2019-11-24] MEDS: MELATONIN 3 MG TABLET 6 MG PO (21:48)
[2019-11-25] MEDS: Vancomycin IV 1,000 MG/200 ML BAG 200 MG IV ×2 (03:52→16:24)
[2019-11-25 05:17] VITALS: BP 127/68; PULSE 93; RESP 18; TEMP 37; O2SAT 97
[2019-11-25] MEDS: Fluticasone 0.05% 1 SPRAY NASAL.SRY NASAL (05:21)
[2019-11-25] MEDS: Polyethylene Glycol 3350 17 GM PACKET PO (05:21)
[2019-11-25] MEDS: amLODIPine 10 MG Tablet PO (05:22)
[2019-11-25] MEDS: guaiFENesin 600 MG Tablet PO ×2 (05:22→16:29)
[2019-11-25] MEDS: Acetaminophen 500 MG Tablet 1000 MG PO ×3 (05:22→21:34)
[2019-11-25] MEDS: Losartan Potassium 100 MG Tablet PO (05:22)
[2019-11-25] MEDS: Senna/Docusate Sodium 1 Tablet PO ×2 (05:22→16:29)
[2019-11-25] MEDS: Clotrimazole/Betamethasone 1 Tube 1 APPLIC TOPICAL ×2 (05:24→21:36)
[2019-11-25] MEDS: Menthol/Lanolin/Calamine/Znox 113 GM Tube 1 APPLIC TOPICAL ×2 (05:24→16:34)
[2019-11-25] MEDS: Nystatin Powder 15gm Bottle 1 APPLIC TOPICAL ×2 (05:25→21:36)
[2019-11-25] MEDS: Cyanocobalamin 500 MCG Tablet PO (07:47)
[2019-11-25] MEDS: Multivitamins,Therapeutic Tablet 1 TABLET PO (07:47)
[2019-11-25] MEDS: Cefepime HCl 2 GM in 0.9% NS 100 ML Minibag Q12 IV ×2 (10:08→21:33)
[2019-11-25] MEDS: 0.9% Saline Lock 10 ML Syringe IV ×3 (10:08→21:33)
--- NOTE | 2019-11-25 14:02 | CASEMGMT ---
Social Work Spoke with pt's about DC plans. agreeable to DC date 12/03 after IVs are done. requesting [facility] Referral made for PT/OT/ST/SN/SW/FAROOQ. No DME needs. Spoke with pt - pt agreeable. Kim Wasserman, [place] LOW TRUCK DRIVER AQUATIC LABORER
[2019-11-25 14:16] VITALS: BP 104/62; PULSE 94; RESP 16; TEMP 36.8; O2SAT 98
[2019-11-25] MEDS: MELATONIN 3 MG TABLET 6 MG PO (21:34)
[2019-11-26] MEDS: 0.9% Saline Lock 10 ML Syringe IV ×3 (03:46→22:08)
[2019-11-26] MEDS: Vancomycin IV 1,000 MG/200 ML BAG 200 MG IV ×2 (03:46→16:10)
[2019-11-26 03:50] VITALS: BP 129/55; PULSE 90; RESP 18; TEMP 36.8; O2SAT 96
[2019-11-26] MEDS: Fluticasone 0.05% 1 SPRAY NASAL.SRY NASAL (04:58)
[2019-11-26] MEDS: Menthol/Lanolin/Calamine/Znox 113 GM Tube 1 APPLIC TOPICAL ×2 (04:58→18:23)
[2019-11-26] MEDS: Nystatin Powder 15gm Bottle 1 APPLIC TOPICAL ×2 (04:59→22:06)
[2019-11-26] MEDS: Acetaminophen 500 MG Tablet 1000 MG PO ×3 (04:59→22:04)
[2019-11-26] MEDS: Polyethylene Glycol 3350 17 GM PACKET PO (04:59)
[2019-11-26] MEDS: Losartan Potassium 100 MG Tablet PO (05:00)
[2019-11-26] MEDS: Senna/Docusate Sodium 1 Tablet PO ×2 (05:00→18:22)
[2019-11-26] MEDS: amLODIPine 10 MG Tablet PO (05:00)
[2019-11-26] MEDS: guaiFENesin 600 MG Tablet PO ×2 (05:00→18:22)
[2019-11-26] MEDS: Multivitamins,Therapeutic Tablet 1 TABLET PO (07:36)
[2019-11-26] MEDS: Cyanocobalamin 500 MCG Tablet PO (07:37)
[2019-11-26] MEDS: Cefepime HCl 2 GM in 0.9% NS 100 ML Minibag Q12 IV ×2 (10:33→21:59)
--- NOTE | 2019-11-26 13:36 | OT ---
spoke with pt's about ADL status. still recommending pt. have a hip kit for LB self care. also recommended grab bars for toilet or 3-in-1 commode for toilet with shield, or raised toilet seat for commode, or comfort height commode. stating she will discuss with pt. what option he would like. therapist informed that his PA was removed and that he is able to stand with ww on his own to stretch/move positions, use urinal as needed. also informed about pt's transfer status within room to bathroom and shower. informed pt. had a LOB with WASTE MANAGEMENT SPECIALIST earlier this week, but unsure of exact circumstances.
[2019-11-26 13:41] VITALS: BP 128/62; PULSE 100; RESP 18; TEMP 36.6; O2SAT 97
[2019-11-26] MEDS: MELATONIN 3 MG TABLET 6 MG PO (22:04)
[2019-11-27] MEDS: Vancomycin IV 1,000 MG/200 ML BAG 200 MG IV ×2 (04:08→15:43)
[2019-11-27 05:41] VITALS: BP 123/54; PULSE 79; RESP 16; TEMP 37.1; O2SAT 98
[2019-11-27] MEDS: Acetaminophen 500 MG Tablet 1000 MG PO ×3 (05:42→21:44)
[2019-11-27] MEDS: Losartan Potassium 100 MG Tablet PO (05:43)
[2019-11-27] MEDS: amLODIPine 10 MG Tablet PO (05:43)
[2019-11-27] MEDS: guaiFENesin 600 MG Tablet PO ×2 (05:43→17:38)
[2019-11-27] MEDS: Senna/Docusate Sodium 1 Tablet PO ×2 (05:43→17:38)
[2019-11-27] MEDS: Fluticasone 0.05% 1 SPRAY NASAL.SRY NASAL (05:44)
[2019-11-27] MEDS: 0.9% Saline Lock 10 ML Syringe IV ×4 (05:45→21:38)
[2019-11-27] MEDS: Menthol/Lanolin/Calamine/Znox 113 GM Tube 1 APPLIC TOPICAL ×2 (05:47→17:38)
[2019-11-27] MEDS: Nystatin Powder 15gm Bottle 1 APPLIC TOPICAL ×2 (05:47→21:45)
[2019-11-27] MEDS: Multivitamins,Therapeutic Tablet 1 TABLET PO (07:59)
[2019-11-27] MEDS: Cyanocobalamin 500 MCG Tablet PO (07:59)
[2019-11-27] MEDS: Cefepime HCl 2 GM in 0.9% NS 100 ML Minibag Q12 IV ×2 (11:10→21:40)
[2019-11-27 14:28] VITALS: BP 131/62; PULSE 102; RESP 18; TEMP 36.8; O2SAT 98
[2019-11-27] MEDS: MELATONIN 3 MG TABLET 6 MG PO (21:45)
[2019-11-28] MEDS: 0.9% Saline Lock 10 ML Syringe IV ×4 (04:19→21:22)
[2019-11-28] MEDS: Vancomycin IV 1,000 MG/200 ML BAG 200 MG IV ×2 (04:21→15:38)
[2019-11-28 04:22] VITALS: BP 127/69; PULSE 91; RESP 16; TEMP 36.8; O2SAT 94
[2019-11-28] MEDS: Nystatin Powder 15gm Bottle 1 APPLIC TOPICAL ×2 (04:25→21:21)
[2019-11-28] MEDS: amLODIPine 10 MG Tablet PO (04:26)
[2019-11-28] MEDS: Acetaminophen 500 MG Tablet 1000 MG PO ×3 (04:26→21:19)
[2019-11-28] MEDS: Polyethylene Glycol 3350 17 GM PACKET PO (04:26)
[2019-11-28] MEDS: Losartan Potassium 100 MG Tablet PO (04:26)
[2019-11-28] MEDS: Senna/Docusate Sodium 1 Tablet PO ×2 (04:26→17:05)
[2019-11-28] MEDS: Menthol/Lanolin/Calamine/Znox 113 GM Tube 1 APPLIC TOPICAL ×2 (04:27→17:07)
[2019-11-28] MEDS: guaiFENesin 600 MG Tablet PO ×2 (04:27→17:05)
[2019-11-28] MEDS: Fluticasone 0.05% 1 SPRAY NASAL.SRY NASAL (04:31)
[2019-11-28] MEDS: Multivitamins,Therapeutic Tablet 1 TABLET PO (08:11)
[2019-11-28] MEDS: Cyanocobalamin 500 MCG Tablet PO (08:11)
[2019-11-28 09:32] VITALS: PULSE 97; RESP 16; O2SAT 98
[2019-11-28] MEDS: Cefepime HCl 2 GM in 0.9% NS 100 ML Minibag Q12 IV ×2 (09:54→21:26)
[2019-11-28 14:31] VITALS: BP 117/54; PULSE 96; RESP 18; TEMP 36.9; O2SAT 98
[2019-11-28] MEDS: MELATONIN 3 MG TABLET 6 MG PO (21:18)
[2019-11-29] MEDS: Vancomycin IV 1,000 MG/200 ML BAG 200 MG IV ×2 (03:36→15:51)
[2019-11-29 03:39] VITALS: BP 151/72; PULSE 98; RESP 18; TEMP 37.1; O2SAT 98
[2019-11-29 03:45] LABS: Absolute Lymphocyte Count 1.25 X10^3/uL (0.83-4.51); Basophil# 0.14 X10^3/uL; Basophil% 2.2 % (0-1); Eosinophil# 0.42 X10^3/uL; Eosinophils% 6.5 % (0-5); Hematocrit 30.9 % (40-54); Lymphocyte # 1.25 X10^3/ul (4.0); Lymphocyte % 19.2 % (19-41); Mean Corp Hgb Conc 32.4 g/dL (32-36); Mean Corpuscular Hgb 27.2 pg (27.0-32.0); Mean Platelet Vol. 8.9 fl (6.2-12.0); Monocyte# 0.66 X10^3/uL; Monocyte% 10.2 % (0-10); NRBC Flagged by Analyzer 0 % (0-5); Neutrophil # 3.98 X10^3/uL (2.7-7.7); Neutrophil % 61.1 % (47-70); Platelet Count 292 K/mm3 (150-450); RBC Distribution Width CV 13.6 % (11.6-14.6); RBC Distribution Width SD 41.7 fl (35.1-43.9); Red Blood Count 3.68 M/mm3 (4.6-6.2); White Blood Count 6.5 K/mm3 (4.4-11.0)
[2019-11-29 03:50] LABS: Erythrocyte Sedimentation Rate 21 mm/hr (0-20)
[2019-11-29 04:09] LABS: Vancomycin, Trough Level 23.4 ug/mL (5.0-15.0)
[2019-11-29 04:14] LABS: AST(SGOT) 14 U/L (15-37); Alanine Aminotransfer ALT/SGPT 21 U/L (16-61); Albumin, Serum 3.1 g/dL (3.2-5.0); Alkaline Phosphatase 52 U/L (45-117); Anion Gap 7 (5-15); BUN 18 mg/dL (7-18); BUN/Creat Ratio 20.3 RATIO (10-20); CRP 6.57 mg/L (0.0-3.0); Calcium,Total 8.9 mg/dL (8.5-10.1); Chloride 107 mmol/L (98-107); Creatinine, Serum 0.89 mg/dL (0.70-1.30); EST Glomerular Filtration Rate 87 mL/min (>60); Est Glom Filt Rate - Afr Amer 105 mL/min (>60); Estimated Creatinine Clearance 58.71 ml/min; Globulin 3.1 g/dL (2.2-4.2); Glucose 90 mg/dL (74-106); Protein, Total 6.2 g/dL (6.4-8.2); Sodium Level 136 mmol/L (136-145)
[2019-11-29] MEDS: 0.9% Saline Lock 10 ML Syringe IV ×3 (04:59→21:23)
[2019-11-29] MEDS: Fluticasone 0.05% 1 SPRAY NASAL.SRY NASAL (05:00)
[2019-11-29] MEDS: amLODIPine 10 MG Tablet PO (05:01)
[2019-11-29] MEDS: Polyethylene Glycol 3350 17 GM PACKET PO (05:01)
[2019-11-29] MEDS: Losartan Potassium 100 MG Tablet PO (05:01)
[2019-11-29] MEDS: Acetaminophen 500 MG Tablet 1000 MG PO ×3 (05:02→21:29)
[2019-11-29] MEDS: Senna/Docusate Sodium 1 Tablet PO ×2 (05:02→17:43)
[2019-11-29] MEDS: guaiFENesin 600 MG Tablet PO ×2 (05:02→17:43)
[2019-11-29] MEDS: Menthol/Lanolin/Calamine/Znox 113 GM Tube 1 APPLIC TOPICAL ×2 (05:03→17:43)
[2019-11-29] MEDS: Nystatin Powder 15gm Bottle 1 APPLIC TOPICAL ×2 (05:04→21:31)
[2019-11-29] MEDS: Multivitamins,Therapeutic Tablet 1 TABLET PO (07:56)
[2019-11-29] MEDS: Cyanocobalamin 500 MCG Tablet PO (07:56)
[2019-11-29] MEDS: Cefepime HCl 2 GM in 0.9% NS 100 ML Minibag Q12 IV ×2 (10:20→21:25)
[2019-11-29 15:32] VITALS: BP 128/62; PULSE 80; RESP 18; TEMP 36.4; O2SAT 94
--- NOTE | 2019-11-29 20:29 | PCM.TCUNOT ---
Subjective: Resident seen in room for regulatory visit. He is lying in bed, he has no new problems, concerns, issues, complaints. He feels he is progressing with therapy, and his pain is well controlled. Vitals/I&O's: Vital Signs Temp Pulse Resp BP Pulse Ox 97.5 F L 80 18 128/62 H 94 11/29/19 15:32 11/29/19 15:32 11/29/19 15:32 11/29/19 15:32 11/29/19 15:32 Oxygen Flow Rate (L/min) 99 Oxygen Delivery Method Room Air Weight: 82.696 kg Body Mass Index (BMI) 27.9 Finger Stick Blood Glucose 260 Intake and Output for Last 24 Hours 11/27/19 11/28/19 11/29/19 23:59 23:59 23:59 Intake Total 1440 / 1440 1320 / 1320 755 / 755 Output Total 2850 / 2850 1750 / 1750 700 / 700 Balance -1410 / -1410 -430 / -430 55 / 55 Laboratory Results 11/29/19 03:28: WBC 6.5, RBC 3.68 L, Hgb 10.0 L, Hct 30.9 L, MCV 84.0, MCH 27.2, MCHC 32.4, RDW Std Deviation 41.7, RDW Coeff of [place] 13.6, Plt Count 292, MPV 8.9, Immature Gran % (Auto) 0.800, Neut % (Auto) 61.1, Lymph % (Auto) 19.2, Edwards % (Auto) 10.2 H, Eos % (Auto) 6.5 H, Baso % (Auto) 2.2 H, Absolute Neuts (auto) 4.0, Absolute Lymphs (auto) 1.25, Nucleated RBC % 0, ESR 21 H 11/29/19 03:28: Sodium 136, Potassium 4.0, Chloride 107, Carbon Dioxide 22.0, Anion Gap 7, BUN 18, Creatinine 0.89, Estim Creat Clear Calc 58.71, Est GFR (MDRD) Af Amer 105, Est GFR (MDRD) Non-Af 87, BUN/Creatinine Ratio 20.3 H, Glucose 90, Calcium 8.9, Total Bilirubin 0.60, AST 14 L, ALT 21, Alkaline Phosphatase 52, C-React Prot Ext Range 6.57 H, Total Protein 6.2 L, Albumin 3.1 L, Globulin 3.1, Albumin/Globulin Ratio 1.0 11/29/19 03:28: Vancomycin Trough 23.4 H Past Medical History Past Medical History (Chronic Problems): Chronic Problems Lumbar spinal stenosis (Chronic) Weakness of both legs (Chronic) Fecal impaction of colon (Chronic) Hyperlipidemia (Chronic) Prostate cancer (Chronic) Osteoarthritis (Chronic) Hearing loss (Chronic) Hypertension (Chronic) Allergies No Known Allergies Allergy (Verified 10/22/19 15:34) Home Medications: Ambulatory Orders Medication Instructions Recorded Amlodipine [Norvasc] 10 mg PO DAILY 11/02/19 Cefepime HCl [Maxipime] 2 gm IV Q12 11/02/19 Cholecalciferol (Vitamin D3) 25 mcg PO DAILY 11/02/19 [Vitamin D3] Cyanocobalamin [Vitamin B12] 500 mcg PO DAILY@0800 11/02/19 Fluticasone 0.05% [Flonase Nasal 1 spray NASAL DAILY 11/02/19 [place]] Guaifenesin [Mucinex] 600 mg PO BID 11/02/19 Losartan Potassium [Cozaar] 100 mg PO DAILY 11/02/19 Melatonin 6 mg PO QHS 11/02/19 Multivitamin [Daily Multiple 1 ea PO DAILY 11/02/19 Vitamin] Polyethylene Glycol 3350 [Miralax] 17 gm PO DAILY 11/02/19 Senna/Docusate Sodium [Senokot-S] 1 tab PO BID 11/02/19 Vancomycin HCl in Water 1,250 mg IV Q12H 11/02/19 [Vancomycin 1,250 mg/12.5 ml Vl] Surgical History: herniorrhaphy, - - Brachytherapy, Bilateral carpal tunnel release, Left lower extremity coumpound fracture, right middle finger amputation, right ulnar nerve decompression, irrigation & debridement of lumbar surgical site with repair of dural tear. Psychiatric History: No pertinent psych hx Lives: Spouse/ Significant Other Smoking Status: Never smoker Tobacco Use: Non-smoker Alcohol: None Drugs: None - *Family History Paternal History Items: Hypertension Maternal History Items: Cancer - Leukemia. Capacity - Capacity Assessment Tool Can the patient make a choice & communicate that choice?: Yes Can the patient understand benefits, risks and alternatives?: Yes Can the patient make a logical, rational choice?: Yes Is the choice the patient makes consistent w/ their values?: Yes Is there an impending, emergent risk to the patient?: No Does the patient have an Advance Directive?: No Is there a Surrogate Available?: Yes i.e. HCPOA: Yes i.e. close relative (spouse, child, parent, sibling)?: Yes Review of Systems Constitutional: Denies: Chills, Fever, Weight Change HEENT: Denies: Head Aches, Sinus Congestion, Sinus Drainage Cardiovascular: Denies: Chest Pain, Palpitations Respiratory: Denies: Cough, Shortness of breath at rest, Sputum production Gastrointestinal: Denies: Abdominal Pain, Nausea, Vomiting Genitourinary: Denies: Dysuria Musculoskeletal: Denies: Joint Pain, Joint Tenderness Skin: Denies: Rash, Wounds Neurological: Denies: Numbness, Tingling, Focal weakness Psychiatric: Denies: Anxiety, Depression, Homicidal Ideations, Suicidal Ideations Hematologic/ Lymphatic: Denies: Easy Bruising, Easy Bleeding Patient Problems: Active and Suspected Problems Severe sepsis (Acute) Metabolic encephalopathy (Acute) Infection of lumbar spine (Acute) VIOLIN MAKER HAND infection (Acute) - Physical Exam Vitals/I&O's: Vital Signs Temp Pulse Resp BP Pulse Ox 97.5 F L 80 18 128/62 H 94 11/29/19 15:32 11/29/19 15:32 11/29/19 15:32 11/29/19 15:32 11/29/19 15:32 Oxygen Flow Rate (L/min) 99 Oxygen Delivery Method Room Air Weight: 82.696 kg Body Mass Index (BMI) 27.9 Finger Stick Blood Glucose 260 Intake and Output for Last 24 Hours 11/27/19 11/28/19 11/29/19 23:59 23:59 23:59 Intake Total 1440 / 1440 1320 / 1320 755 / 755 Output Total 2850 / 2850 1750 / 1750 700 / 700 Balance -1410 / -1410 -430 / -430 55 / 55 General: Alert, Oriented x3, Cooperative HEENT: Atraumatic, PERRLA, EOMI, Normocephalic Neck: Supple, No JVD, Negative Carotid Bruits Lungs: Clear to auscultation, Normal air movement Cardiovascular: Regular rate, No murmurs Abdomen: Bowel Sounds Present, Soft, Non Tender Extremities: No edema, Capillary Refill Less than 3 Seconds Skin: No rashes, No breakdown Musculoskeletal: No Tenderness to Palpation of Joints or Extremities Neurological: Cranial nerves II-XII grossly intact Psych/Mental Status: Normal Affect, Appropriate Laboratory Results 11/29/19 03:28: WBC 6.5, RBC 3.68 L, Hgb 10.0 L, Hct 30.9 L, MCV 84.0, MCH 27.2, MCHC 32.4, RDW Std Deviation 41.7, RDW Coeff of [place] 13.6, Plt Count 292, MPV 8.9, Immature Gran % (Auto) 0.800, Neut % (Auto) 61.1, Lymph % (Auto) 19.2, Edwards % (Auto) 10.2 H, Eos % (Auto) 6.5 H, Baso % (Auto) 2.2 H, Absolute Neuts (auto) 4.0, Absolute Lymphs (auto) 1.25, Nucleated RBC % 0, ESR 21 H 11/29/19 03:28: Sodium 136, Potassium 4.0, Chloride 107, Carbon Dioxide 22.0, Anion Gap 7, BUN 18, Creatinine 0.89, Estim Creat Clear Calc 58.71, Est GFR (MDRD) Af Amer 105, Est GFR (MDRD) Non-Af 87, BUN/Creatinine Ratio 20.3 H, Glucose 90, Calcium 8.9, Total Bilirubin 0.60, AST 14 L, ALT 21, Alkaline Phosphatase 52, C-React Prot Ext Range 6.57 H, Total Protein 6.2 L, Albumin 3.1 L, Globulin 3.1, Albumin/Globulin Ratio 1.0 11/29/19 03:28: Vancomycin Trough 23.4 H Current Medications Acetaminophen (Tylenol) 1,000 mg PO Q8 [facility] Last Admin: 11/29/19 13:01 Dose: 1,000 mg Documented by: Amlodipine Besylate (Norvasc) 10 mg PO DAILY [facility] Last Admin: 11/29/19 05:01 Dose: 10 mg Documented by: Bisacodyl (Dulcolax) 10 mg RECTAL DAILY PRN PRN Reason: Constipation Calamine/Phenol (Calmoseptine Ointment) 1 applic TOPICAL BID [facility]; Protocol Last Admin: 11/29/19 17:43 Dose: 1 applicatio Documented by: Cholecalciferol (Vitamin D (25mcg)) 1,000 unit PO DAILYCM [facility] Last Admin: 11/29/19 07:56 Dose: 1,000 unit Documented by: Cyanocobalamin (Vitamin B12) 500 mcg PO DAILY@0800 [facility] Last Admin: 11/29/19 07:56 Dose: 500 mcg Documented by: Fluticasone Propionate (Flonase Nasal [place]) 1 spray NASAL DAILY [facility] Last Admin: 11/29/19 05:00 Dose: 1 spray Documented by: Guaifenesin (Mucinex) 600 mg PO BID [facility] Last Admin: 11/29/19 17:43 Dose: 600 mg Documented by: Heparin Sodium (Beef Lung) () 50 units IV UD PRN PRN Reason: PICC Line Heparin Flush Last Admin: 11/22/19 05:38 Dose: 50 units Documented by: Sodium Chloride () 250 mls @ 15 mls/hr IV .[id number] PRN PRN Reason: Saline Flush Last Infusion: 11/29/19 12:00 Dose: 0 mls/hr Documented by: Sodium Chloride () 250 mls @ 15 mls/hr IV .[id number] PRN PRN Reason: Additional IVPB Infusion Last Infusion: 11/22/19 21:32 Dose: Infused Documented by: Cefepime HCl 2 gm/ Sodium (Chloride) 100 mls @ 200 mls/hr IV Q12@1000,2200 [facility] Stop: 12/02/21 22:01 Last Infusion: 11/29/19 11:00 Dose: Infused Documented by: Vancomycin HCl 750 mg/ Sodium (Chloride) 265 mls @ 250 mls/hr IV Q12H [facility] Stop: 12/03/19 16:01 Lorazepam (Ativan) 0.25 mg PO Q6H PRN PRN PRN Reason: ANXIETY Last Admin: 11/11/19 11:42 Dose: 0.25 mg Documented by: Losartan Potassium (Cozaar) 100 mg PO DAILY [facility] Last Admin: 11/29/19 05:01 Dose: 100 mg Documented by: Melatonin (Melatonin) 6 mg PO QHS [facility] Last Admin: 11/28/19 21:18 Dose: 6 mg Documented by: Multivitamins (Multivitamin) 1 tablet PO DAILY@0800 [facility] Last Admin: 11/29/19 07:56 Dose: 1 tablet Documented by: Nystatin (Mycostatin Powder) 1 applic TOPICAL 0600,2200 [facility]; Protocol Last Admin: 11/29/19 05:04 Dose: 1 applicatio Documented by: Polyethylene Glycol (Miralax) 17 gm PO DAILY [facility] Last Admin: 11/29/19 05:01 Dose: 17 gm Documented by: Potassium Chloride (K-Dur) 20 meq PO DAILYCM [facility] Last Admin: 11/29/19 07:55 Dose: 20 meq Documented by: Senna/Docusate Sodium (Senokot-S, Mindy-Colace) 1 tablet PO BID [facility] Last Admin: 11/29/19 17:43 Dose: 1 tablet Documented by: Sodium Chloride () 10 - 40 ml IV UD PRN PRN Reason: Open End PICC Flush Last Admin: 11/29/19 15:51 Dose: 20 ml Documented by: Sodium Chloride (0.9% Nacl (Sterile) Posiflush) 10 - 40 ml IV UD PRN PRN Reason: Port access or dressing change Last Admin: 11/03/19 16:14 Dose: 20 ml Documented by: Assessment/Plan All Active Problems Debility (Acute) Severe sepsis (Acute) Metabolic encephalopathy (Acute) Infection of lumbar spine (Acute) VIOLIN MAKER HAND infection (Acute) 84 year old male with below past medical history hospitalized for severe sepsis secondary lumbar surgical site infection requiring debridement and dural tear repair 10/25/2019, complicated by encephalopathy, admitted to TCU with debility, here for rehabilitation, strengthening, prior to discharge home with . Debility - PT/OT. Cognition - ST. Pain - Tylenol 1000MG Q8H. Bowel - Miralax 17GM daily, Senna/colace 1 tablet BID, Dulcolax 10MG MT daily PRN. Adult immunization - Administer Prevnar 13, Pneumovax 23, Fluzone as appropriate. DVT prophylaxis - Lovenox stopped due to anemia. Hypertension - Losartan 100MG daily, Amlodipine 10MG daily. 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 Vitamin D deficiency - D3 1000IU daily. Vitamin B12 deficiency - B12 500MCG daily. Allergic Rhinitis - Flonase nasal spray 1 spray nasal daily. Congestion - Mucinex 600MG twice daily. Insomnia - Melatonin 6MG QHS. Nutrition - MVI daily. Hypokalemia - KCL 20MEQ daily. Anxiety - Ativan 0.25MG Q6H PRN. Skin irritation - Calmoseptine BID. Tinea Corporis - Nystatin powder BID.
[2019-11-29] MEDS: MELATONIN 3 MG TABLET 6 MG PO (21:29)
[2019-11-30 06:00] VITALS: BP 153/74; PULSE 98; RESP 16; TEMP 36.9; O2SAT 98
[2019-11-30] MEDS: amLODIPine 10 MG Tablet PO (06:02)
[2019-11-30] MEDS: Senna/Docusate Sodium 1 Tablet PO ×2 (06:02→17:30)
[2019-11-30] MEDS: Fluticasone 0.05% 1 SPRAY NASAL.SRY NASAL (06:02)
[2019-11-30] MEDS: Acetaminophen 500 MG Tablet 1000 MG PO ×3 (06:02→21:50)
[2019-11-30] MEDS: Losartan Potassium 100 MG Tablet PO (06:02)
[2019-11-30] MEDS: guaiFENesin 600 MG Tablet PO ×2 (06:03→17:30)
[2019-11-30] MEDS: Polyethylene Glycol 3350 17 GM PACKET PO (06:03)
[2019-11-30] MEDS: Menthol/Lanolin/Calamine/Znox 113 GM Tube 1 APPLIC TOPICAL ×2 (06:04→17:30)
[2019-11-30] MEDS: Nystatin Powder 15gm Bottle 1 APPLIC TOPICAL ×2 (06:05→21:51)
--- NOTE | 2019-11-30 06:43 | NURSING ---
Patient c/o of urinating all night and that he feels like he is not emptying out and that his bladder feels full. Patient urinated in his urinal at this time for 325. Patient bladder scanned after urinating for 121. Patient states that he feels like he needs to have a urine test done. Will update Dr. Hawthorne.
[2019-11-30] MEDS: Cyanocobalamin 500 MCG Tablet PO (07:40)
[2019-11-30] MEDS: Multivitamins,Therapeutic Tablet 1 TABLET PO (07:40)
[2019-11-30 10:00] VITALS: PULSE 102; RESP 16; O2SAT 99
[2019-11-30] MEDS: 0.9% Saline Lock 10 ML Syringe IV ×4 (10:30→21:44)
[2019-11-30] MEDS: Cefepime HCl 2 GM in 0.9% NS 100 ML Minibag Q12 IV ×2 (10:30→21:46)
[2019-11-30 12:43] LABS: Mucous, Urine 0 SEEN /hpf (<or=2+); Red Blood Cells-Urine 0 SEEN /hpf (0-5); White Blood Cells 0 SEEN /hpf (0-5)
[2019-11-30 12:44] LABS: Color, Urine Yellow (Yellow); Glucose, Dipstick Normal (Normal); Ketone-Dipstick Negative (Negative); Leukocyte Esterase-Dipstick Negative /ul (Negative); Nitrite-Dipstick Negative (Negative); Occult Blood-Urine 25 /ul (Negative); Protein-Dipstick 100 mg/dl (Negative); Urine Bilirubin Dipstick Negative (Negative); Urine Clarity Clear (Clear); Urine Urobilinogen Normal (Normal)
[2019-11-30 12:51] LABS: Bacteria RARE /hpf (None Seen); Hyaline Cast 0-5 SEEN /lpf (0-5); Squamous Epithelial Cells - UA 0-5 SEEN /hpf (0-5)
[2019-11-30 14:06] VITALS: BP 118/50; PULSE 94; RESP 17; TEMP 36.7; O2SAT 98
--- NOTE | 2019-11-30 15:15 | NURSING ---
Per pharmacy request, this nurse contacted Dr. Sifuentes's office to ask if they would like a repeat vanco trough. Dr. Sifuentes's office stated that we were to administer the 750mg of vancomycin as ordered.
--- NOTE | 2019-11-30 15:21 | NURSING ---
11/29/19 Received call from [facility] Infectious disease office around 1620 stating the vancomycin trough was high 11/29/19 and they want to decrease the dose to 750mg Q12H. Dr. Hawthorne notified and order placed. 1600 dose already hung at 1551 by primary RN. [facility] called and questioned if we wanted to recheck a trough or hold the dose for 24 hours due to the previous dose already infusing. Orders from Dr. Hawthorne to hold 750mg IV Vancomycin for 24 hours and restart 11/30/19 at 1600. Pharmacy updated.
[2019-11-30] MEDS: Tamsulosin HCl 0.4 MG Capsule PO (17:30)
[2019-11-30] MEDS: MELATONIN 3 MG TABLET 6 MG PO (21:50)
[2019-12-01] MEDS: 0.9% Saline Lock 10 ML Syringe IV ×4 (04:03→21:26)
[2019-12-01] MEDS: Menthol/Lanolin/Calamine/Znox 113 GM Tube 1 APPLIC TOPICAL ×2 (04:13→16:14)
[2019-12-01] MEDS: Nystatin Powder 15gm Bottle 1 APPLIC TOPICAL ×2 (04:14→21:36)
[2019-12-01 05:01] VITALS: BP 115/60; PULSE 96; RESP 16; TEMP 37.1; O2SAT 98
[2019-12-01] MEDS: guaiFENesin 600 MG Tablet PO ×2 (05:13→16:30)
[2019-12-01] MEDS: Acetaminophen 500 MG Tablet 1000 MG PO ×3 (05:13→21:35)
[2019-12-01] MEDS: Fluticasone 0.05% 1 SPRAY NASAL.SRY NASAL (05:13)
[2019-12-01] MEDS: amLODIPine 10 MG Tablet PO (05:14)
[2019-12-01] MEDS: Polyethylene Glycol 3350 17 GM PACKET PO (05:14)
[2019-12-01] MEDS: Losartan Potassium 100 MG Tablet PO (05:14)
[2019-12-01] MEDS: Senna/Docusate Sodium 1 Tablet PO ×2 (05:14→16:29)
[2019-12-01 05:51] LABS: Absolute Lymphocyte Count 1.38 X10^3/uL (0.83-4.51); Absolute Neutrophil Count 3.5 X10^3/uL (2.0-7.7); Basophil% 1.7 % (0-1); Eosinophil# 0.35 X10^3/uL; Eosinophils% 5.8 % (0-5); Hematocrit 29.3 % (40-54); Hemoglobin 9.7 g/dL (13.0-16.5); Lymphocyte # 1.38 X10^3/ul (4.0); Lymphocyte % 22.8 % (19-41); Mean Corp Hgb Conc 33.1 g/dL (32-36); Mean Corpuscular Hgb 28.1 pg (27.0-32.0); Mean Corpuscular Volume 84.9 fL (80-94); Monocyte# 0.67 X10^3/uL; Monocyte% 11.1 % (0-10); NRBC Flagged by Analyzer 0 % (0-5); Neutrophil # 3.52 X10^3/uL (2.7-7.7); Neutrophil % 58.1 % (47-70); Platelet Count 278 K/mm3 (150-450); RBC Distribution Width SD 42.6 fl (35.1-43.9); Red Blood Count 3.45 M/mm3 (4.6-6.2); White Blood Count 6.1 K/mm3 (4.4-11.0)
[2019-12-01 06:16] LABS: ALB/GLOB Ratio 0.9 RATIO (0.9-2.4); AST(SGOT) 13 U/L (15-37); Alanine Aminotransfer ALT/SGPT 19 U/L (16-61); Albumin, Serum 3.1 g/dL (3.2-5.0); Alkaline Phosphatase 51 U/L (45-117); Anion Gap 5 (5-15); BUN 20 mg/dL (7-18); BUN/Creat Ratio 23.9 RATIO (10-20); CRP 6.91 mg/L (0.0-3.0); Chloride 109 mmol/L (98-107); Creatinine, Serum 0.84 mg/dL (0.70-1.30); EST Glomerular Filtration Rate 93 mL/min (>60); Est Glom Filt Rate - Afr Amer 112 mL/min (>60); Globulin 3.4 g/dL (2.2-4.2); Glucose 94 mg/dL (74-106); Protein, Total 6.5 g/dL (6.4-8.2); Sodium Level 138 mmol/L (136-145)
[2019-12-01 06:57] LABS: Erythrocyte Sedimentation Rate 23 mm/hr (0-20)
[2019-12-01] MEDS: Multivitamins,Therapeutic Tablet 1 TABLET PO (08:13)
[2019-12-01] MEDS: Cyanocobalamin 500 MCG Tablet PO (08:13)
[2019-12-01] MEDS: Cefepime HCl 2 GM in 0.9% NS 100 ML Minibag Q12 IV ×2 (09:14→21:32)
[2019-12-01 12:43] VITALS: BP 108/52; PULSE 96; RESP 16; TEMP 36.6; O2SAT 97
[2019-12-01] MEDS: Tamsulosin HCl 0.4 MG Capsule PO (16:14)
[2019-12-01] MEDS: MELATONIN 3 MG TABLET 6 MG PO (21:34)
--- NOTE | 2019-12-01 22:23 | DCINST_ITS ---
- Discharge Diagnoses Current Active Problems: Current Active and Chronic Problems Severe sepsis (Acute) Metabolic encephalopathy (Acute) Infection of lumbar spine (Acute) ASSISTANT FOREMAN infection (Acute) You will use the following diet at home:: No restrictions, Regular Your food should be the consistency of: Regular Your liquids should be the consistency of: Regular/Thin Discharge Activity: Return to Normal Activity, May Shower, Use Walker Weight Bearing Status: Weight bearing as tolerated Call your doctor if you observe: Fever of 101 or Higher, Inability to urinate, Inability to have a bowel movement, Shortness of breath, Chest pain, Uncontrolled pain Allergies/Adverse Reactions: Allergies No Known Allergies Allergy (Verified 10/22/19 15:34) Medications to take at Discharge Cholecalciferol (Vitamin D3) [Vitamin D3] 25 mcg PO DAILY 11/02/19 Cyanocobalamin [Vitamin B12] 500 mcg PO DAILY@0800 11/02/19 Fluticasone 0.05% [Flonase Nasal [place]] 1 spray NASAL DAILY 11/02/19 Guaifenesin [Mucinex] 600 mg PO BID 11/02/19 Melatonin 6 mg PO QHS 11/02/19 Multivitamin [Daily Multiple Vitamin] 1 ea PO DAILY 11/02/19 Acetaminophen [Tylenol] 1,000 mg PO Q8 tab 12/01/19 Amlodipine [Norvasc] 10 mg PO DAILY #30 tab 12/01/19 Losartan Potassium [Cozaar] 100 mg PO DAILY #30 tab 12/01/19 Menthol/Lanolin/Calamine/Znox [Calmoseptine Ointment] 1 applic TOPICAL BID tube 12/01/19 Nystatin Powder [Mycostatin Powder] 1 applic TOPICAL 0600,2200 bottle 12/01/19 Potassium Chloride [K-Dur] 20 meq PO DAILYCM #30 tab 12/01/19 Tamsulosin HCl [Flomax] 0.4 mg PO DAILY@1730 #30 cap 12/01/19 The following prescriptions were given: Losartan Potassium [Cozaar] 100 mg PO DAILY #30 tab Transmission Status: Pending to [id number] Tamsulosin HCl [Flomax] 0.4 mg PO DAILY@1730 #30 cap Transmission Status: Pending to [id number] Potassium Chloride [K-Dur] 20 meq PO DAILYCM #30 tab Transmission Status: Pending to [id number] Amlodipine [Norvasc] 10 mg PO DAILY #30 tab Transmission Status: Pending to [id number] Primary Care Physician: Claudio Garibay DO [Primary Care Provider] - Please follow up with your Primary Care Physician in: 1 week. Test Results: Test results from this visit will be discussed in further detail at your follow- up appointment, if applicable. Please Follow Up With: Adelfo Jimenez (surgeon) When: F/U in January for Xrays of fusion Please Follow Up With: Darshana Sifuentes (infectious disease) When: [phone] Proposed Discharge Date: 12/04/19
--- NOTE | 2019-12-01 22:24 | DS.PCM_ITS ---
Discharge Date and Diagnosis - Problem List Patient Problems: Active and Suspected Problems Severe sepsis (Acute) Metabolic encephalopathy (Acute) Infection of lumbar spine (Acute) QUALITY CONTROL ENGINEERING TECHNICIAN infection (Acute) Date of Admission: 11/02/19 Date of Discharge: 12/04/19 - Primary Discharge Diagnosis Acute Problems: Active Problems Severe sepsis (Acute) Metabolic encephalopathy (Acute) Infection of lumbar spine (Acute) QUALITY CONTROL ENGINEERING TECHNICIAN infection (Acute) - Secondary Discharge Diagnosis Chronic Problems: Chronic Problems Lumbar spinal stenosis (Chronic) Weakness of both legs (Chronic) Fecal impaction of colon (Chronic) Hyperlipidemia (Chronic) Prostate cancer (Chronic) Osteoarthritis (Chronic) Hearing loss (Chronic) Hypertension (Chronic) Hospital Course and Treatment Imaging Results: 11/02/19 18:38 Diet: Regular Diet Food consistency:: Regular Liquid Consistency:: Regular/Thin Is pt able to select menu?: Yes Labs (Last 48 Hours) 11/30/19 12/01/19 12/01/19 12:36 05:20 05:20 WBC 6.1 RBC 3.45 L Hgb 9.7 L Hct 29.3 L MCV 84.9 MCH 28.1 MCHC 33.1 RDW Std Deviation 42.6 RDW Coeff of [place] 14.0 Plt Count 278 MPV 9.0 Immature Gran % (Auto) 0.500 Neut % (Auto) 58.1 Lymph % (Auto) 22.8 [place] % (Auto) 11.1 H Eos % (Auto) 5.8 H Baso % (Auto) 1.7 H Absolute Neuts (auto) 3.5 Absolute Lymphs (auto) 1.38 Nucleated RBC % 0 ESR 23 H Sodium 138 Potassium 4.0 Chloride 109 H Carbon Dioxide 24.0 Anion Gap 5 BUN 20 H Creatinine 0.84 Estim Creat Clear Calc 62.20 Est GFR (MDRD) Af Amer 112 Est GFR (MDRD) Non-Af 93 BUN/Creatinine Ratio 23.9 H Glucose 94 Calcium 9.0 Total Bilirubin 0.70 AST 13 L ALT 19 Alkaline Phosphatase 51 C-React Prot Ext Range 6.91 H Total Protein 6.5 Albumin 3.1 L Globulin 3.4 Albumin/Globulin Ratio 0.9 Urine Color Yellow Urine Clarity Clear Urine pH 6.0 Ur Specific [place] 1.020 Urine Protein 100 H Urine Glucose (UA) Normal Urine Ketones Negative Urine Occult Blood 25 H Urine Nitrite Negative Urine Bilirubin Negative Urine Urobilinogen Normal Ur Leukocyte Esterase Negative Urine RBC 0 SEEN Urine WBC 0 SEEN Ur Squamous Epith Cells 0-5 SEEN Urine Bacteria RARE Hyaline Casts 0-5 SEEN Urine Mucus 0 SEEN Operations: None Procedures: None Summary of Care Provided: The patient is a 84 year old Male with below past medical history hospitalized for severe sepsis secondary lumbar surgical site infection requiring debridement and dural tear repair 10/25/2019, complicated by encephalopathy, admitted to TCU with debility, here for rehabilitation, strengthening, prior to discharge home with . Discharge home with , [facility] PT/OT/ST/SN/SW/REAL ESTATE ASSISTANT, no DME needs. Patient Problems: Active and Suspected Problems Severe sepsis (Acute) Metabolic encephalopathy (Acute) Infection of lumbar spine (Acute) QUALITY CONTROL ENGINEERING TECHNICIAN infection (Acute) - Physical Exam Vitals/I&O's: Vital Signs Temp Pulse Resp BP Pulse Ox 97.8 F 96 16 108/52 L 97 12/01/19 12:43 12/01/19 12:43 12/01/19 12:43 12/01/19 12:43 12/01/19 12:43 Oxygen Flow Rate (L/min) 99 Oxygen Delivery Method Room Air Weight: 84.482 kg Body Mass Index (BMI) 27.9 Finger Stick Blood Glucose 260 Intake and Output for Last 24 Hours 11/29/19 11/30/19 12/01/19 23:59 23:59 23:59 Intake Total 1095 / 1095 1425 / 1425 1929 Output Total 700 / 700 600 / 600 Balance 395 / 395 825 / 825 1929 Laboratory Results 12/01/19 05:20: WBC 6.1, RBC 3.45 L, Hgb 9.7 L, Hct 29.3 L, MCV 84.9, MCH 28.1, MCHC 33.1, RDW Std Deviation 42.6, RDW Coeff of [place] 14.0, Plt Count 278, MPV 9.0, Immature Gran % (Auto) 0.500, Neut % (Auto) 58.1, Lymph % (Auto) 22.8, [place] % (Auto) 11.1 H, Eos % (Auto) 5.8 H, Baso % (Auto) 1.7 H, Absolute Neuts (auto) 3.5, Absolute Lymphs (auto) 1.38, Nucleated RBC % 0, ESR 23 H 12/01/19 05:20: Sodium 138, Potassium 4.0, Chloride 109 H, Carbon Dioxide 24.0, Anion Gap 5, BUN 20 H, Creatinine 0.84, Estim Creat Clear Calc 62.20, Est GFR (MDRD) Af Amer 112, Est GFR (MDRD) Non-Af 93, BUN/Creatinine Ratio 23.9 H, Glucose 94, Calcium 9.0, Total Bilirubin 0.70, AST 13 L, ALT 19, Alkaline Phosphatase 51, C-React Prot Ext Range 6.91 H, Total Protein 6.5, Albumin 3.1 L, Globulin 3.4, Albumin/Globulin Ratio 0.9 Current Medications Acetaminophen (Tylenol) 1,000 mg PO Q8 [facility] Last Admin: 12/01/19 21:35 Dose: 1,000 mg Documented by: Amlodipine Besylate (Norvasc) 10 mg PO DAILY [facility] Last Admin: 12/01/19 05:14 Dose: 10 mg Documented by: Bisacodyl (Dulcolax) 10 mg RECTAL DAILY PRN PRN Reason: Constipation Calamine/Phenol (Calmoseptine Ointment) 1 applic TOPICAL BID [facility]; Protocol Last Admin: 12/01/19 16:14 Dose: 1 applicatio Documented by: Cholecalciferol (Vitamin D (25mcg)) 1,000 unit PO DAILYCM [facility] Last Admin: 12/01/19 08:13 Dose: 1,000 unit Documented by: Cyanocobalamin (Vitamin B12) 500 mcg PO DAILY@0800 [facility] Last Admin: 12/01/19 08:13 Dose: 500 mcg Documented by: Fluticasone Propionate (Flonase Nasal [place]) 1 spray NASAL DAILY [facility] Last Admin: 12/01/19 05:13 Dose: 1 spray Documented by: Guaifenesin (Mucinex) 600 mg PO BID [facility] Last Admin: 12/01/19 16:30 Dose: 600 mg Documented by: Heparin Sodium (Beef Lung) () 50 units IV UD PRN PRN Reason: PICC Line Heparin Flush Last Admin: 11/22/19 05:38 Dose: 50 units Documented by: Sodium Chloride () 250 mls @ 15 mls/hr IV .[id number] PRN PRN Reason: Saline Flush Last Infusion: 11/29/19 12:00 Dose: 0 mls/hr Documented by: Sodium Chloride () 250 mls @ 15 mls/hr IV .[id number] PRN PRN Reason: Additional IVPB Infusion Last Infusion: 11/22/19 21:32 Dose: Infused Documented by: Cefepime HCl 2 gm/ Sodium (Chloride) 100 mls @ 200 mls/hr IV Q12@1000,2200 [facility] Stop: 12/02/21 22:01 Last Infusion: 12/01/19 22:03 Dose: Infused Documented by: Vancomycin HCl 750 mg/ Sodium (Chloride) 265 mls @ 250 mls/hr IV Q12H [facility] Stop: 12/03/19 16:01 Last Infusion: 12/01/19 16:37 Dose: Infused Documented by: Lorazepam (Ativan) 0.25 mg PO Q6H PRN PRN PRN Reason: ANXIETY Last Admin: 11/11/19 11:42 Dose: 0.25 mg Documented by: Losartan Potassium (Cozaar) 100 mg PO DAILY [facility] Last Admin: 12/01/19 05:14 Dose: 100 mg Documented by: Melatonin (Melatonin) 6 mg PO QHS [facility] Last Admin: 12/01/19 21:34 Dose: 6 mg Documented by: Multivitamins (Multivitamin) 1 tablet PO DAILY@0800 [facility] Last Admin: 12/01/19 08:13 Dose: 1 tablet Documented by: Nystatin (Mycostatin Powder) 1 applic TOPICAL 0600,2200 [facility]; Protocol Last Admin: 12/01/19 21:36 Dose: 1 applicatio Documented by: Polyethylene Glycol (Miralax) 17 gm PO DAILY [facility] Last Admin: 12/01/19 05:14 Dose: 17 gm Documented by: Potassium Chloride (K-Dur) 20 meq PO DAILYCM [facility] Last Admin: 12/01/19 08:11 Dose: 20 meq Documented by: Senna/Docusate Sodium (Senokot-S, Mindy-Colace) 1 tablet PO BID [facility] Last Admin: 12/01/19 16:29 Dose: 1 tablet Documented by: Sodium Chloride () 10 - 40 ml IV UD PRN PRN Reason: Open End PICC Flush Last Admin: 12/01/19 21:26 Dose: 20 ml Documented by: Sodium Chloride (0.9% Nacl (Sterile) Posiflush) 10 - 40 ml IV UD PRN PRN Reason: Port access or dressing change Last Admin: 11/03/19 16:14 Dose: 20 ml Documented by: Tamsulosin HCl (Flomax) 0.4 mg PO DAILY@1730 [facility] Last Admin: 12/01/19 16:14 Dose: 0.4 mg Documented by: Discharge Diet: No Restrictions Discharge Activity: Return to Normal Activity, May Shower, Use Walker Weight Bearing Status: Weight bearing as tolerated Call your doctor if you observe: Fever of 101 or Higher, Inability to urinate, Inability to have a bowel movement, Shortness of breath, Chest pain, Uncontrolled pain Home Medications: Medications to take at Discharge Cholecalciferol (Vitamin D3) [Vitamin D3] 25 mcg PO DAILY 11/02/19 Cyanocobalamin [Vitamin B12] 500 mcg PO DAILY@0800 11/02/19 Fluticasone 0.05% [Flonase Nasal [place]] 1 spray NASAL DAILY 11/02/19 Guaifenesin [Mucinex] 600 mg PO BID 11/02/19 Melatonin 6 mg PO QHS 11/02/19 Multivitamin [Daily Multiple Vitamin] 1 ea PO DAILY 11/02/19 Acetaminophen [Tylenol] 1,000 mg PO Q8 tab 12/01/19 Amlodipine [Norvasc] 10 mg PO DAILY #30 tab 12/01/19 Losartan Potassium [Cozaar] 100 mg PO DAILY #30 tab 12/01/19 Menthol/Lanolin/Calamine/Znox [Calmoseptine Ointment] 1 applic TOPICAL BID tube 12/01/19 Nystatin Powder [Mycostatin Powder] 1 applic TOPICAL 0600,2200 bottle 12/01/19 Potassium Chloride [K-Dur] 20 meq PO DAILYCM #30 tab 12/01/19 Tamsulosin HCl [Flomax] 0.4 mg PO DAILY@1730 #30 cap 12/01/19 Following Prescriptions Were Given to Patient: Losartan Potassium [Cozaar] 100 mg PO DAILY #30 tab Transmission Status: Pending to [id number] Tamsulosin HCl [Flomax] 0.4 mg PO DAILY@1730 #30 cap Transmission Status: Pending to [id number] Potassium Chloride [K-Dur] 20 meq PO DAILYCM #30 tab Transmission Status: Pending to [id number] Amlodipine [Norvasc] 10 mg PO DAILY #30 tab Transmission Status: Pending to [id number] Primary Care Physician: Claudio Garibay DO [Primary Care Provider] - Please follow up with your Primary Care Physician in: 1 week. Please Follow Up With: Adelfo Jimenez (surgeon) When: F/U in January for Xrays of fusion Please Follow Up With: Darshana Sifuentes (infectious disease) When: [phone] Disposition: Home with Home Health Minutes spent on discharge:: 35 Patient Condition:: Stable Medical Necessity - Tobacco Use Smoking Status: Never smoker Tobacco Use: Non-smoker Meaningful Use Info Meaningful Use Diagnoses (Choose all that apply): None applicable
[2019-12-02 02:12] VITALS: BP 128/71; PULSE 94; RESP 16; TEMP 37.2; O2SAT 97
[2019-12-02] MEDS: 0.9% Saline Lock 10 ML Syringe IV ×4 (03:55→21:35)
[2019-12-02 05:11] VITALS: BP 117/54; PULSE 94; RESP 16; TEMP 37.2; O2SAT 97
[2019-12-02] MEDS: Nystatin Powder 15gm Bottle 1 APPLIC TOPICAL ×2 (05:12→21:29)
[2019-12-02] MEDS: Menthol/Lanolin/Calamine/Znox 113 GM Tube 1 APPLIC TOPICAL ×2 (05:12→17:27)
[2019-12-02] MEDS: amLODIPine 10 MG Tablet PO (05:14)
[2019-12-02] MEDS: guaiFENesin 600 MG Tablet PO ×2 (05:14→17:27)
[2019-12-02] MEDS: Fluticasone 0.05% 1 SPRAY NASAL.SRY NASAL (05:14)
[2019-12-02] MEDS: Senna/Docusate Sodium 1 Tablet PO ×2 (05:14→17:27)
[2019-12-02] MEDS: Polyethylene Glycol 3350 17 GM PACKET PO (05:14)
[2019-12-02] MEDS: Acetaminophen 500 MG Tablet 1000 MG PO ×3 (05:14→21:28)
[2019-12-02] MEDS: Losartan Potassium 100 MG Tablet PO (05:14)
[2019-12-02] MEDS: Cyanocobalamin 500 MCG Tablet PO (07:48)
[2019-12-02] MEDS: Multivitamins,Therapeutic Tablet 1 TABLET PO (07:48)
[2019-12-02 09:10] VITALS: PULSE 97; RESP 16; O2SAT 99
[2019-12-02] MEDS: Cefepime HCl 2 GM in 0.9% NS 100 ML Minibag Q12 IV ×2 (09:31→21:42)
[2019-12-02 13:54] VITALS: BP 113/58; PULSE 90; RESP 18; TEMP 37.1; O2SAT 97
[2019-12-02] MEDS: Tamsulosin HCl 0.4 MG Capsule PO (17:27)
[2019-12-02] MEDS: MELATONIN 3 MG TABLET 6 MG PO (21:29)
[2019-12-03] MEDS: Polyethylene Glycol 3350 17 GM PACKET PO (04:31)
[2019-12-03] MEDS: Fluticasone 0.05% 1 SPRAY NASAL.SRY NASAL (04:31)
[2019-12-03] MEDS: Senna/Docusate Sodium 1 Tablet PO ×2 (04:32→17:25)
[2019-12-03] MEDS: guaiFENesin 600 MG Tablet PO ×2 (04:32→17:25)
[2019-12-03] MEDS: Losartan Potassium 100 MG Tablet PO (04:32)
[2019-12-03] MEDS: Acetaminophen 500 MG Tablet 1000 MG PO ×3 (04:32→21:09)
[2019-12-03] MEDS: amLODIPine 10 MG Tablet PO (04:32)
[2019-12-03] MEDS: Menthol/Lanolin/Calamine/Znox 113 GM Tube 1 APPLIC TOPICAL ×3 (04:33→21:10)
[2019-12-03] MEDS: Nystatin Powder 15gm Bottle 1 APPLIC TOPICAL ×2 (04:34→21:09)
[2019-12-03 04:35] VITALS: BP 123/74; PULSE 98; RESP 20; TEMP 36.8; O2SAT 96
--- NOTE | 2019-12-03 08:45 | CASEMGMT ---
Social Work BIMS and PHQ-9 completed for MDS assessment. Kim Wasserman, DERRICK WORKER WELL SERVICE TEST BORER HELPER
[2019-12-03] MEDS: Cyanocobalamin 500 MCG Tablet PO (09:34)
[2019-12-03] MEDS: Multivitamins,Therapeutic Tablet 1 TABLET PO (09:34)
[2019-12-03] MEDS: Cefepime HCl 2 GM in 0.9% NS 100 ML Minibag Q12 IV ×2 (09:34→21:11)
[2019-12-03] MEDS: 0.9% Saline Lock 10 ML Syringe IV ×2 (09:41→21:10)
--- NOTE | 2019-12-03 09:53 | MDS.RN ---
Pain interview for steven 12/04/19
[2019-12-03 14:25] VITALS: BP 128/68; PULSE 84; RESP 16; TEMP 36.8; O2SAT 97
[2019-12-03] MEDS: Tamsulosin HCl 0.4 MG Capsule PO (17:24)
[2019-12-03] MEDS: MELATONIN 3 MG TABLET 6 MG PO (21:09)
[2019-12-04 04:00] VITALS: BP 136/74; PULSE 104; RESP 17; TEMP 36.6; O2SAT 98
[2019-12-04] MEDS: Acetaminophen 500 MG Tablet 1000 MG PO (05:42)
[2019-12-04] MEDS: Nystatin Powder 15gm Bottle 1 APPLIC TOPICAL (05:42)
[2019-12-04] MEDS: Fluticasone 0.05% 1 SPRAY NASAL.SRY NASAL (05:42)
[2019-12-04] MEDS: amLODIPine 10 MG Tablet PO (05:43)
[2019-12-04] MEDS: guaiFENesin 600 MG Tablet PO (05:43)
[2019-12-04] MEDS: Losartan Potassium 100 MG Tablet PO (05:43)
[2019-12-04] MEDS: Senna/Docusate Sodium 1 Tablet PO (05:43)
[2019-12-04] MEDS: Multivitamins,Therapeutic Tablet 1 TABLET PO (08:22)
[2019-12-04] MEDS: Cyanocobalamin 500 MCG Tablet PO (08:23)
[2019-12-04 09:56] VITALS: RESP 16
[2019-12-04 10:03] VITALS: BP 107/64; PULSE 104; RESP 16; TEMP 37
--- NOTE | 2019-12-04 11:39 | NURSING ---
Removed R PICC in upper arm at 1110. Resident tolerated procedure well.
== END 2019-12-04 11:20 | disposition home health service (06) | DRG 919 ==
PROVIDERS: Admitting Provider Family Medicine Geriatric Medicine; PCP Preventive Medicine Occupational Medicine; Referring Provider Family Medicine Geriatric Medicine; Visit Provider Family Medicine Geriatric Medicine
DX: G97.41 Accidental puncture or laceration of dura during a procedure (principal); G93.41 Metabolic encephalopathy; E55.9 Vitamin D deficiency, unspecified; T81.41XD Infection following a procedure, superficial incisional surgical site, subsequent encounter; I10 Essential (primary) hypertension; E87.6 Hypokalemia; E53.8 Deficiency of other specified B group vitamins; M19.90 Unspecified osteoarthritis, unspecified site; E78.5 Hyperlipidemia, unspecified; M48.061 Spinal stenosis, lumbar region without neurogenic claudication; Z23 Encounter for immunization; F41.9 Anxiety disorder, unspecified
CPT/HCPCS: 36415; 36569; 80048; 80053; 80202; 81001; 85025; 85652; 86140; 87086; 92507; 92523; 97110; 97116; 97162; 97166; 97530; 97535; 97802; G0009; J2997; J7050; 90670; A4216

== ENCOUNTER 2020-10-01 09:23 | Emergency (ER) | payer MEDICARE, SELFPAY ==
[2019-11-02 20:25] VITALS: BMI 27.9
[2020-10-01 09:24] VITALS: BP 131/94; PULSE 98; RESP 16; TEMP 36.9; O2SAT 98; BMI 30.5
--- NOTE | 2020-10-01 09:46 | RAD_ITS ---
HISTORY: pain. TECHNIQUE: XR Spine Lumbar 2 or 3 Views. # of images incl. paperwork: 2. COMPARISON: MR 06/23/2019. FINDINGS: VERTEBRAE: 5 lumbar vertebral bodies. No acute fracture identified. Posterior spinal fusion hardware and decompressive laminectomies identified at L3-5. ALIGNMENT: 2 mm retrolisthesis of L2-3. Unchanged 2 m anterolisthesis of L3-4 INTERVERTEBRAL DISCS: Degenerative endplate changes with severe intervertebral disc space narrowing, sclerosis, and vacuum disc phenomenon at L2-3. Degenerative endplate changes at the postoperative levels. SOFT TISSUES: Small surgical clip at the left S1 level. RAD/Lumbar Spine 2 or 3 Views IMPRESSION: No acute fracture identified in the lumbar spine. Degenerative and postoperative changes with alignment as above. at 1028 Reported and signed by: Ita Lopez MD Electronically Signed: Ita Lopez MD at 10:27 EDT Tel , Service support ,
--- NOTE | 2020-10-01 10:18 | EDS_ITS ---
HPI History of Present Illness Chief Complaint: Back Informant: patient and spouse/S.O. Onset/Context/Timing Onset: Month(s) (1 or more) Context: Gradual Onset (without injury) Timing: Continuous Quality: Aching Location: - (left low back and into lateral left hip area, no other leg radiation or numbness) Current Severity: Moderate Maximum Severity: Moderate Worsened by: improves with Nothing Relieved by: Nothing Associated Symptoms Associated Symptoms: Constipation (after taking tramadol); Negative for Numbness, Tingling, Abdominal Pain, Dysuria, Unable to Ambulate, Urinary Rete ntion, Urinary Incontinence and Fecal Incontinence Narrative Narrative: Patient has been having this pain for over a month. He saw orthope dics, they did some x-rays of his hip and pelvis, and tried to order an MRI but it was refused by insurance so he is now going to physical therapy. So far he only had the evaluation and has had no treatments yet, but he states the therapist who evaluated him told him he would be treated for bursitis. He is already tried a taper of steroids and states it did not help at all. He was prescribed tramadol, he states he took 1 and does not remember if it helped much but he became constipated so he stopped them. He denies any new symptoms but the discomfort worsened overnight presents for evaluation. [facility] Medical History Hypertension Home Medications cholecalciferol (vitamin D3) 25 mcg PO DAILY 11/02/19 [History Last Taken Unknown] cyanocobalamin (vitamin B-12) 500 mcg PO DAILY@0800 11/02/19 [History Last Taken Unknown] fluticasone propionate 1 spray NASAL DAILY 11/02/19 [History Last Taken Unknown] guaifenesin 400 mg PO BID 11/02/19 [History Last Taken Unknown] melatonin 6 mg PO QHS 11/02/19 [History Last Taken Unknown] multivitamin 1 ea PO DAILY 11/02/19 [History Last Taken Unknown] acetaminophen 1,000 mg PO Q8 tab 12/01/19 [Rx Last Taken Unknown] amlodipine 10 mg PO DAILY #30 tab 12/01/19 [Rx Last Taken Unknown] losartan 100 mg PO DAILY #30 tab 12/01/19 [Rx Last Taken Unknown] tamsulosin 0.4 mg PO DAILY@1730 #30 cap 08/05/20 [Rx Last Taken Unknown] gabapentin 100 mg PO DAILY 10/01/20 [History Last Taken Unknown] meloxicam 15 mg PO DAILY 10/01/20 [History Last Taken Unknown] methylprednisolone See Taper PO DAILY 10/01/20 [History Last Taken Unknown] phenylephrine HCl 10 mg PO Q6H PRN 10/01/20 [History Last Taken Unknown] Allergy/AdvReac Type Severity Reaction Status Date / Time No Known Allergies Allergy Verified 10/01/20 09:26 Social History Smoking Status: Never smoker ROS ROS ED Constitutional Constitutional ED: Denies chills or fever(s) Gastrointestinal Gastrointestinal: Reports constipation; Denies abdominal pain, fecal incontinence, nausea or vomiting Genitourinary Genitourinary ED: Reports other Details: no urinary retention ; Denies abdominal discomfort or urinary incontinence Musculoskeletal Musculoskeletal: Reports as per HPI, back pain and extremity pain; Denies neck pain Integumentary Denies rash or wounds Neurologic Neurologic: Denies headache(s), paresthesias or weakness EXAM Physical Exam Const Vital Signs: 10/01/20 09:24 Temperature 98.5 F Temperature Source Temporal Pulse Rate 98 Respiratory Rate 16 Blood Pressure 131/94 H Blood Pressure Mean 106 Pulse Ox 98 Oxygen Delivery Method Room Air Positive well nourished and well developed General Appearance ED: well developed and NAD HEENT Negative for trauma or tenderness Eyes PERRL and EOMs intact bilaterally Neck full ROM and supple GI normal to inspection, nondistended, normoactive bowel sounds, soft to palpation and non-tender Back/Spine normal to inspection Thoracic Spine / Upper Back: paraspinal muscle tenderness Lumbar Spine / Lower Back: ROM limited and straight leg raise negative bilaterally Extremity normal to inspection, full ROM and no pedal edema Extremity Narrative: Full range of hip without pain. Full range of low back without pain. No midline back tenderness. He indicates location of pain at the left SI joint which is not particularly tender and is normal on inspection. No tenderness at the greater trochanter. Mildly tender superior to this and around the piriformis. Neuro oriented x3 and no sensory deficits noted Sensorium / Orientation: alert Motor Exam: strength 5/5 throughout Deep Tendon Reflexes: Rt Patellar (L4): 2+ and Lt Patellar (L4): 2+ Deep Tendon Reflexes Back: Rt Patellar (L4): 2+ and Lt Patellar (L4): 2+ Psych mental status grossly normal and thought process normal Skin no rashes or lesions noted and no wounds MDM MDM MDM Narrative Medical decision making narrative: I obtain lumbar spine x-rays, he did have surgery remotely and the hardware is noted, I do not think that necessarily has anything to do with the etiology of his pain. He does have a fairly narrow space at L2-3 on my interpretation of the 2 view x-ray series but nothing acute. I am not sure what else to offer this gentleman except for analgesics. We discussed that, he does not want anything stronger, and we discussed Colace and MiraLAX for the constipation that the tramadol cause, and the fact that he can also take Tylenol with the tramadol and he is comfortable with that. He was given a dose of pain medication here in place of the tramadol for the next 6 hours. At this time he is not examining like bursitis, he may have more than 1 area affected here but he is describing his main pain at the location of the left SI joint. For these reasons I do not think a bursal steroid injection is indicated right now, and I recommend continuing to follow-up with therapy and orthopedics as he was. I do not think there will be any other helpful tests to perform emergently right now. Discharge Plan Triage Chief Complaint: Back ED Provider: Lavelle Mata Dx/Rx/DC Orders Clinical Impression: Sacroiliitis Instructions: ED Sacroiliitis Prescriptions: No Action multivitamin 1 EACH tablet 1 ea PO DAILY RF: 0 melatonin 3 MG tablet 6 mg PO QHS RF: 0 cyanocobalamin (vitamin B-12) 500 MCG tablet 500 mcg PO DAILY@0800 RF: 0 fluticasone propionate 1 SPRAY spray,suspension 1 spray NASAL DAILY RF: 0 cholecalciferol (vitamin D3) 25 MCG tablet 25 mcg PO DAILY RF: 0 guaifenesin 600 MG tablet 400 mg PO BID RF: 0 acetaminophen 500 MG tablet 1,000 mg PO Q8 RF: 0 tamsulosin 0.4 MG capsule 0.4 mg PO DAILY@1730 Qty: 30 RF: 0 amlodipine 10 MG tablet 10 mg PO DAILY Qty: 30 RF: 0 losartan 100 MG tablet 100 mg PO DAILY Qty: 30 RF: 0 meloxicam 15 mg tablet 15 mg PO DAILY RF: 0 gabapentin 100 mg capsule 100 mg PO DAILY RF: 0 methylprednisolone 4 mg tablets,dose pack See Taper mg PO DAILY RF: 0 phenylephrine HCl 10 mg Tablet 10 mg PO Q6H PRN (Reason: Allergy Symptoms) RF: 0 Primary Care Provider: Claudio Garibay Referrals: Claudio Garibay DO [Primary Care Provider] - 1 Week if not improving (And/your Dr. Jose, physical therapy) Activity Restrictions/Additional Instructions: May take Tylenol along with tramadol as needed for pain. Take docusate 100 mg capsule, 1 capsule 2 times a day, in addition to 1 capful of MiraLAX or equivalent dissolved in any liquid once daily while taking prescription pain medication. Disposition Disposition: Home, self care
[2020-10-01] MEDS: HYDROcodone Bitartrate/Apap 5/325 Tablet PO (11:38)
[2020-10-01 11:43] VITALS: TEMP -7.7; TEMP 18
== END 2020-10-01 11:45 | disposition home or self-care (01) ==
LOC: ED 10:36
PROVIDERS: Emergency Provider Emergency Medicine; PCP Preventive Medicine Occupational Medicine
DX: M46.1 Sacroiliitis, not elsewhere classified (principal); I10 Essential (primary) hypertension; Z79.899 Other long term (current) drug therapy
CPT/HCPCS: 72100; 99283

== ENCOUNTER → 2021-03-26 08:35 | Outpatient (CLI) | payer MEDICARE, SELFPAY ==
--- NOTE | 2021-03-26 08:46 | NM_ITS ---
CLINICAL: 86-year-old male with history of low back discomfort. WHOLE BODY 99m Tc MDP RADIONUCLIDE BONE SCINTIGRAPHY COMPARISON: Whole body bone scintigraphy report 02/26/2011, plain film radiograph report lumbar spine 10/01/2020 FINDINGS: Following the intravenous administration of 25.1 mCi of 99m Tc MDP, whole body bone images reveal: 1. Facilitated radiotracer uptake is observed in the fourth lumbar vertebra diffusely, the left mid tibial diaphysis. 2. Increased radiopharmaceutical concentration is identified in the acromioclavicular and sternoclavicular compartments of both shoulders, mid-lower cervical spine posteriorly on the left and right, bilateral knees, ankles bilaterally. 3. The remaining skeletal structures are scintigraphically unremarkable with normal-appearing renal images and urinary bladder activity identified. NM/Bone Scan Whole Body IMPRESSION: 1. The increase in radiopharmaceutical concentration identified in the fourth lumbar vertebra and left mid tibial diaphysis is most consistent with trauma-fracture. Plain film radiograph correlation may be of benefit in the region of the left lower extremity. In patients > 65 years of age, increased radiopharmaceutical concentration on bone scintigraphy in uncomplicated documented fracture, may take > 18 months for complete resolution. (Joel et al, Seminars of Nuclear Medicine, 13:104, 1983). 2. Degenerative arthritis appears expressed in the bilateral shoulders, cervical spine, right and left knees, both ankle articulations. Electronically Signed: Juno Melendez DO at 23:48 EST Tel , Service support ,
== END ==
PROVIDERS: PCP Preventive Medicine Occupational Medicine; Visit Provider Preventive Medicine Occupational Medicine
DX: M54.50 Low back pain, unspecified (principal); Z85.46 Personal history of malignant neoplasm of prostate
CPT/HCPCS: 78306; A9503

== ENCOUNTER → 2023-10-29 | Outpatient (CLI) | payer MEDICARE, SELFPAY ==
--- NOTE | 2023-10-29 08:34 | NM_ITS ---
CLINICAL: 86-year-old male with history of low back discomfort. WHOLE BODY 99m Tc MDP RADIONUCLIDE BONE SCINTIGRAPHY COMPARISON: Previous whole body bone scintigraphy study dated 01/24/2021 FINDINGS: Following the intravenous administration of 25.6 mCi of 99m Tc MDP, whole body bone images reveal: 1. Persistent increased radiopharmaceutical concentration is defined in the fourth lumbar vertebra diffusely. 2. Enhanced uptake is currently defined in the acromioclavicular and sternoclavicular compartments of both shoulders, the patellofemoral compartment of both knees, the medial tibial compartment of the left knee, the 12th thoracic vertebra posteriorly on the left, the elbows bilaterally, the right-left wrist, the left hand, lower cervical spine posteriorly on the left and right. 3. The remaining skeletal structures are scintigraphically unremarkable with normal-appearing renal images and urinary bladder activity identified. Facilitated radiotracer is apparent in the region of the distal tibial component of the presumed left knee arthroplasty most consistent with normal postsurgical change. NM/Bone Scan Whole Body IMPRESSION: 1. Increased uptake remaining apparent in the fourth lumbar vertebra diffusely remains consistent with osteoblastic turnover attributed to trauma-fracture. 2. Degenerative arthritis is demonstrated in the bilateral shoulders, the knee articulations bilaterally, the lower thoracic spine, both elbows, the wrists bilaterally, the left hand and cervical spine. 3. Overall compared to the previous whole body bone scintigraphy study dated 01/24/2021, increased uptake noted in the medial tibial compartment of the left knee may represent loosening in the appropriate clinical context. Electronically Signed: Juno Melendez DO at 12:08 EDT ,
== END | disposition home or self-care (01) ==
LOC: NM 08:32
PROVIDERS: PCP Preventive Medicine Occupational Medicine; Referring Provider Physician Assistant; Visit Provider Physician Assistant
DX: M43.9 Deforming dorsopathy, unspecified (principal); M54.50 Low back pain, unspecified
CPT/HCPCS: 78306; A9503